=== PATIENT | female | born 1960 | race Caucasian/White ===

== ENCOUNTER → 2016-08-11 | Outpatient (CLI) | payer OTHER ==
[2016-08-11 08:06] LABS: Potassium 4.7 mmol/L (3.5-5.1); Total Bilirubin 0.5 mg/dL (0.2-1.3); Total Protein 6.6 g/dL (6.3-8.2)
[2016-08-11 09:46] LABS: Hemoglobin A1C 8.2 % (4.2-6.1)
== END ==
LOC: LABWHC1 06:50
PROVIDERS: ATTEND Internal Medicine Endocrinology, Diabetes & Metabolism
DX: E10.65 Type 1 diabetes mellitus with hyperglycemia (principal); E06.3 Autoimmune thyroiditis
CPT/HCPCS: 36415; 80053; 80061; 82043; 83036; 84439; 84443

== ENCOUNTER 2016-08-15 11:31 | Emergency (ER) | payer OTHER ==
[2016-08-15] MEDS ORDERED: ONDANSETRON 4 MG/2 ML VIAL IVP STA (12:28)
[2016-08-15] MEDS ORDERED: SODIUM CHLORIDE 0.9% 1,000 ML IV ONE (12:28)
--- NOTE | 2016-08-15 12:29 | ED ---
General Adult HPI - General Chief complaint: Recheck/Abnormal Lab/Rx Stated complaint: diabetes Time Seen by Provider: 08/15/16 11:56 Source: patient Mode of arrival: ambulatory Limitations: no limitations - History of Present Illness Initial comments: 55-year-old female patient presents to emergency department today for complaints of nausea, vomiting, and diarrhea 2 days. She does have a history significant for Type I diabetes and she states that her blood sugars have been fluctuating high and low for the last couple days as well. Patient states last time she vomited was this morning. Patient states that the last time she had diarrhea was throughout the night. Patient describes diarrhea as watery. She states that with this she is having some generalized abdominal pain that she describes as burning in nature. She denies any headache, dizziness, weakness, chest pain, or shortness of breath. Patient denies any hematemesis, dark, bloody, or black stools. - Related Data Home Medications Medication Instructions Recorded Confirmed Insulin Aspart [NovoLOG] See Protocol SQ QID 12/20/13 08/15/16 Levothyroxine Sodium [Synthroid] 137 mcg PO DAILY 12/20/13 08/15/16 Lisinopril [Zestril] 10 mg PO DAILY 12/20/13 08/15/16 Aspirin 81 mg PO DAILY 07/27/14 08/15/16 Atorvastatin Calcium [Lipitor] 40 mg PO HS 07/27/14 08/15/16 Furosemide [Lasix] 20 mg PO BID 07/27/14 08/15/16 Gabapentin 600 mg PO TID 07/27/14 08/15/16 Ibuprofen [Motrin] 800 mg PO Q8HR PRN 07/27/14 08/15/16 Latanoprost Ophth [Xalatan 0.005%] 1 drops RIGHT EYE HS 07/27/14 08/15/16 Cholecalciferol [Vitamin D3] 1,000 unit PO Q48H 08/15/16 08/15/16 Cholecalciferol [Vitamin D3] 2,000 unit PO Q48H 08/15/16 08/15/16 Escitalopram Oxalate [Lexapro] 10 mg PO DAILY 08/15/16 08/15/16 Insulin Degludec [Tresiba 26 unit SQ HS 08/15/16 08/15/16 Flextouch U-100] Previous Rx's Medication Instructions Recorded Ondansetron Odt [Zofran Odt] 4 mg PO Q8HR PRN #10 tab 08/15/16 Allergies Allergy/AdvReac Type Severity Reaction Status Date / Time cephalexin monohydrate Allergy Vomiting Verified 08/15/16 12:36 [From Keflex] prochlorperazine edisylate AdvReac SOB Verified 08/15/16 12:36 [From Compazine] prochlorperazine maleate AdvReac SOB Verified 08/15/16 12:36 [From Compazine] Review of Systems ROS Statement: Those systems with pertinent positive or pertinent negative responses have been documented in the HPI. ROS Other: All systems not noted in ROS Statement are negative. 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 History of Any Multi-Drug Resistant Organisms: None Reported Past Surgical History: Appendectomy, Section, Tonsillectomy Additional Past Surgical History / Comment(s): breast biopsy, cataract Past Anesthesia/Blood Transfusion Reactions: No Reported Reaction Past Psychological History: No Psychological Hx Reported Smoking Status: Current some day smoker Past Alcohol Use History: None Reported Past Drug Use History: None Reported - Past Family History Father Family Medical History: Diabetes Mellitus General Exam Limitations: no limitations General appearance: alert, in no apparent distress Head exam: Present: atraumatic, normocephalic Eye exam: Present: normal appearance (Right eye), PERRL (Right eye) Pupils: Present: unequal (Patient is blind in the left eye, and has chronic changes. Right eye is round, 2 mm, normal accommodation.) ENT exam: Present: normal exam, normal oropharynx, mucous membranes moist, TM's normal bilaterally. Absent: mucous membranes dry Neck exam: Present: normal inspection. Absent: tenderness, meningismus Respiratory exam: Present: normal lung sounds bilaterally. Absent: respiratory distress, wheezes, rales, rhonchi Cardiovascular Exam: Present: regular rate, normal rhythm, normal heart sounds. Absent: irregular rhythm, systolic murmur, diastolic murmur, rubs, gallop, clicks GI/Abdominal exam: Present: soft, tenderness (Mild diffuse), normal bowel sounds. Absent: distended, guarding, rebound, rigid, organomegaly, mass, hernia Extremities exam: Present: normal inspection, normal capillary refill Back exam: Present: normal inspection. Absent: CVA tenderness (R), CVA tenderness (L) Neurological exam: Present: alert, oriented X3, CN II-XII intact Psychiatric exam: Present: normal affect Skin exam: Present: warm, dry, intact Course Vital Signs 08/15/16 08/15/16 11:42 14:15 Temperature 97.3 F L 97.4 F L Pulse Rate 97 89 Respiratory 20 18 Rate Blood Pressure 172/72 164/68 O2 Sat by Pulse 100 99 Oximetry Medical Decision Making - Medical Decision Making 55-year-old female patient presented to emergency department for complaints of nausea, vomiting, and diarrhea. Patient states it started of couple days ago. Last episodes were this morning. Labs and x-ray are unremarkable for any acute abnormalities. Patient was also concerned about her blood sugar. Which appears to be stable around 200 while in the emergency department. Patient did receive 1 L of normal saline and also Zofran for nausea she is feeling better at this time. It is thought that patient has a gastroenteritis and she will be discharged home with instructions to increase fluids monitor her blood sugars closely and also will be given a prescription for Zofran for nausea. Patient is instructed to follow-up with her primary care doctor in 1-2 days. Patient instructed to return to emergency department for any new, worsening, or concerning symptoms. Patient verbalizes understanding and agrees with this plan. - Lab Data Result diagrams: 08/15/16 12:45 08/15/16 12:45 Lab Results 08/15/16 08/15/16 08/15/16 Range/Units 11:50 12:29 12:45 WBC (3.8-10.6) k/uL RBC (3.80-5.40) m/uL Hgb (11.4-16.0) gm/dL Hct (34.0-46.0) % MCV (80.0-100.0) fL MCH (25.0-35.0) pg MCHC (31.0-37.0) g/dL RDW (11.5-15.5) % Plt Count (150-450) k/uL Neutrophils % % Lymphocytes % % Monocytes % % Eosinophils % % Basophils % % Neutrophils # (1.3-7.7) k/uL Lymphocytes # (1.0-4.8) k/uL Monocytes # (0-1.0) k/uL Eosinophils # (0-0.7) k/uL Basophils # (0-0.2) k/uL Sodium 140 (137-145) mmol/L Potassium 4.1 (3.5-5.1) mmol/L Chloride 104 (98-107) mmol/L Carbon Dioxide 24 (22-30) mmol/L Anion Gap 12 mmol/L BUN 16 (7-17) mg/dL Creatinine 0.90 (0.52-1.04) mg/dL Est GFR (MDRD) Af Amer >60 (>60 ml/min/1.73 sqM) Est GFR (MDRD) Non-Af >60 (>60 ml/min/1.73 sqM) Glucose 237 H (74-99) mg/dL POC Glucose (mg/dL) 196 H 205 H (75-99) mg/dL POC Glu Resident Care Associate ID Efren Mcdonald, Jazmin Bronson Calcium 9.8 (8.4-10.2) mg/dL Total Bilirubin 0.8 (0.2-1.3) mg/dL AST 35 (14-36) U/L ALT 52 (9-52) U/L Alkaline Phosphatase 114 (38-126) U/L Total Protein 6.9 (6.3-8.2) g/dL Albumin 4.0 (3.5-5.0) g/dL Amylase 54 (30-110) U/L Lipase 40 (23-300) U/L Urine Color Urine Appearance (Clear) Urine pH (5.0-8.0) Ur Specific [place] (1.001-1.035) Urine Protein (Negative) Urine Glucose (UA) (Negative) Urine Ketones (Negative) Urine Blood (Negative) Urine Nitrate (Negative) Urine Bilirubin (Negative) Urine Urobilinogen (<2.0) mg/dL Ur Leukocyte Esterase (Negative) Acetone, Qual (Negative) 08/15/16 08/15/16 08/15/16 Range/Units 12:45 12:45 12:45 WBC 10.9 H (3.8-10.6) k/uL RBC 4.60 (3.80-5.40) m/uL Hgb 14.4 (11.4-16.0) gm/dL Hct 43.1 (34.0-46.0) % MCV 93.5 (80.0-100.0) fL MCH 31.3 (25.0-35.0) pg MCHC 33.5 (31.0-37.0) g/dL RDW 13.9 (11.5-15.5) % Plt Count 257 (150-450) k/uL Neutrophils % 83 % Lymphocytes % 11 % Monocytes % 4 % Eosinophils % 1 % Basophils % 1 % Neutrophils # 9.0 H (1.3-7.7) k/uL Lymphocytes # 1.1 (1.0-4.8) k/uL Monocytes # 0.4 (0-1.0) k/uL Eosinophils # 0.1 (0-0.7) k/uL Basophils # 0.1 (0-0.2) k/uL Sodium (137-145) mmol/L Potassium (3.5-5.1) mmol/L Chloride (98-107) mmol/L Carbon Dioxide (22-30) mmol/L Anion Gap mmol/L BUN (7-17) mg/dL Creatinine (0.52-1.04) mg/dL Est GFR (MDRD) Af Amer (>60 ml/min/1.73 sqM) Est GFR (MDRD) Non-Af (>60 ml/min/1.73 sqM) Glucose (74-99) mg/dL POC Glucose (mg/dL) (75-99) mg/dL POC Glu Resident Care Associate ID Calcium (8.4-10.2) mg/dL Total Bilirubin (0.2-1.3) mg/dL AST (14-36) U/L ALT (9-52) U/L Alkaline Phosphatase (38-126) U/L Total Protein (6.3-8.2) g/dL Albumin (3.5-5.0) g/dL Amylase (30-110) U/L Lipase (23-300) U/L Urine Color Colorless Urine Appearance Clear (Clear) Urine pH 5.0 (5.0-8.0) Ur Specific [place] 1.005 (1.001-1.035) Urine Protein Negative (Negative) Urine Glucose (UA) Negative (Negative) Urine Ketones Negative (Negative) Urine Blood Negative (Negative) Urine Nitrate Negative (Negative) Urine Bilirubin Negative (Negative) Urine Urobilinogen <2.0 (<2.0) mg/dL Ur Leukocyte Esterase Negative (Negative) Acetone, Qual Negative (Negative) - Radiology Data Radiology results: report reviewed KUB x-ray reveals that the osseous structures are intact. The bowel gas pattern is nonspecific. Splenic granuloma suggested. Lung bases clear. Arthropathy of the hip joints. Impression by Dr. Tam is a nonspecific abdomen. Disposition Clinical Impression: Gastroenteritis, Hyperglycemia Disposition: HOME SELF-CARE Condition: Stable Instructions: Gastroenteritis (ED), Diabetic Hyperglycemia (ED) Additional Instructions: Advance diet slowly. Increase fluids. Monitor blood sugars closely. Follow up with primary care provider in one to 2 days. Return for any new, worsening, or concerning symptoms. Prescriptions: Ondansetron Odt [Zofran Odt] 4 mg PO Q8HR PRN #10 tab PRN Reason: Nausea Referrals: Shannan Narayan MD [Primary Care Provider] - 1-2 days Time of Disposition: 14:09
[2016-08-15 12:32] LABS: Glucose,Whole Blood 205 mg/dL (75-99)
[2016-08-15 13:00] LABS: Basophils # (A) 0.1 k/uL (0-0.2); Basophils % (A) 1 %; CH 30.7; Eosinophils # (A) 0.1 k/uL (0-0.7); Eosinophils % (A) 1 %; HCT 43.1 % (34.0-46.0); HGB 14.4 gm/dL (11.4-16.0); Luc # (Auto) 0.19; Luc % (Auto) 2; Lymphocytes # (A) 1.1 k/uL (1.0-4.8); Lymphocytes % (A) 11 %; MCH 31.3 pg (25.0-35.0); MCHC 33.5 g/dL (31.0-37.0); MCV 93.5 fL (80.0-100.0); Mean Platelet Volume 8.2; Monocytes # (A) 0.4 k/uL (0-1.0); Monocytes % (A) 4 %; Neutrophils % (A) 83 %; RDW 13.9 % (11.5-15.5); WBC 10.9 k/uL (3.8-10.6); WBC (Perox) 10.68
[2016-08-15 13:03] LABS: Appearance,Urine Clear (Clear); Bilirubin,Urine Negative (Negative); Glucose,Urine (UA) Negative (Negative); Ketones,Urine Negative (Negative); Leukocyte Esterase,Urine Negative (Negative); Nitrite,Urine Negative (Negative); Protein,Urine Negative (Negative); Specific Gravity,Urine 1.005 (1.001-1.035); UA Billing (MACRO vs. MICRO) CHEM; Urobilinogen,Urine <2.0 mg/dL (<2.0)
[2016-08-15 13:03] LABS: Glucose,Whole Blood 196 mg/dL (75-99)
[2016-08-15 13:10] LABS: ALT 52 U/L (9-52); AST 35 U/L (14-36); Alkaline Phosphatase 114 U/L (38-126); Amylase 54 U/L (30-110); Anion Gap 12 mmol/L; Blood Urea Nitrogen 16 mg/dL (7-17); Calcium 9.8 mg/dL (8.4-10.2); Carbon Dioxide 24 mmol/L (22-30); Chloride 104 mmol/L (98-107); Glucose 237 mg/dL (74-99); Non-African American GFR(MDRD) >60 (>60 ml/min/1.73 sqM); Potassium 4.1 mmol/L (3.5-5.1); Sodium 140 mmol/L (137-145); Total Bilirubin 0.8 mg/dL (0.2-1.3); Total Protein 6.9 g/dL (6.3-8.2)
--- NOTE | 2016-08-15 13:12 | XR ---
EXAMINATION TYPE: XR KUB DATE OF EXAM: 08/15/2016 1:00 PM COMPARISON: NONE HISTORY: Left and right upper quadrant pain with vomiting TECHNIQUE: One view abdominal series FINDINGS: The osseous structures are intact. The bowel gas pattern is nonspecific. Splenic granuloma suggested . Lung bases clear. Arthropathy of the hip joints. IMPRESSION: 1. Nonspecific abdomen.
[2016-08-15] MEDS ORDERED: FAMOTIDINE 20 MG/2 ML VIAL IV STA (14:08)
[2016-08-15 14:15] VITALS: BP 164/68; PULSE 89; RESP 18; TEMP 97.4
== END 2016-08-15 14:23 | disposition home or self-care (01) ==
LOC: EC 11:31
DX: E11.65 Type 2 diabetes mellitus with hyperglycemia (principal); K52.9 Noninfective gastroenteritis and colitis, unspecified; R11.2 Nausea with vomiting, unspecified; E78.5 Hyperlipidemia, unspecified; E05.00 Thyrotoxicosis with diffuse goiter without thyrotoxic crisis or storm; I10 Essential (primary) hypertension; F17.200 Nicotine dependence, unspecified, uncomplicated; Z79.4 Long term (current) use of insulin; Z79.52 Long term (current) use of systemic steroids; Z79.82 Long term (current) use of aspirin; Z79.899 Other long term (current) drug therapy; Z88.1 Allergy status to other antibiotic agents; Z88.8 Allergy status to other drugs, medicaments and biological substances; Z90.49 Acquired absence of other specified parts of digestive tract
CPT/HCPCS: 36415; 80053; 82150; 82009; 83690; 85025; 81003; 74000; 99284; 96374; 96375; 96361 ×2; J2405

== ENCOUNTER → 2016-09-03 | Outpatient (CLI) | payer OTHER ==
--- NOTE | 2016-09-08 11:00 | MM ---
Reason for exam: screening (asymptomatic). Last mammogram was performed 1 year ago. History: Patient is postmenopausal. Benign right mammotome panel of the right breast, October 03, 2013. Physical Findings: A clinical breast exam by your physician is recommended on an annual basis and results should be correlated with mammographic findings. MG Screening Mammo w CAD Bilateral CC and MLO view(s) were taken. Prior study comparison: September 14, 2015, left breast MG work up mamm w CAD LT. September 03, 2015, bilateral MG screening mammo w CAD. There are scattered fibroglandular densities. Finding: There are typically stable benign calcifications. No significant changes in finding since September 14, 2015 and September 03, 2015. ASSESSMENT: Benign, BI-RAD 2 RECOMMENDATION: Routine screening mammogram of both breasts in 1 year.
== END | disposition home or self-care (01) ==
LOC: RADMAMWWP 12:31
PROVIDERS: ATTEND Internal Medicine
DX: Z12.31 Encounter for screening mammogram for malignant neoplasm of breast (principal)

== ENCOUNTER → 2016-10-10 | Outpatient (CLI) | payer OTHER ==
[2016-10-10 09:22] LABS: ALT 39 U/L (9-52); AST 38 U/L (14-36); Cholesterol 146 mg/dL (<200); HDL Cholesterol 48 mg/dL (40-60); Triglycerides 148 mg/dL (<150)
== END | disposition home or self-care (01) ==
LOC: LABWHC1 08:18
PROVIDERS: ATTEND Internal Medicine Cardiovascular Disease
DX: E78.2 Mixed hyperlipidemia (principal)
CPT/HCPCS: 36415; 80061; 84450; 84460

== ENCOUNTER → 2017-01-19 | Outpatient (CLI) | payer OTHER | END | disposition home or self-care (01) | LOC: LABWHC1 11:00 | PROVIDERS: ATTEND Internal Medicine Endocrinology, Diabetes & Metabolism | DX: E03.9 Hypothyroidism, unspecified (principal) | CPT/HCPCS: 36415; 84439; 84443 ==

== ENCOUNTER → 2017-04-22 | Outpatient (CLI) | payer OTHER | END | disposition home or self-care (01) | LOC: LABWHC1 07:49 | PROVIDERS: ATTEND Internal Medicine Endocrinology, Diabetes & Metabolism | DX: E78.5 Hyperlipidemia, unspecified (principal); E06.3 Autoimmune thyroiditis; E10.65 Type 1 diabetes mellitus with hyperglycemia | CPT/HCPCS: 36415; 80061; 83036; 84439; 84443 ==

== ENCOUNTER → 2017-06-26 | Outpatient (CLI) | payer OTHER ==
--- NOTE | 2017-06-26 11:11 | XR ---
EXAMINATION TYPE: XR shoulder complete LT DATE OF EXAM: 06/26/2017 COMPARISON: NONE HISTORY: Pain TECHNIQUE: Three views are submitted. FINDINGS: The osseous structures are intact. There is no acute fracture or dislocation. The AC joint is maint ained. IMPRESSION: 1. No acute process.
--- NOTE | 2017-06-26 11:20 | XR ---
EXAMINATION TYPE: XR cervical spine comp DATE OF EXAM: 06/26/2017 COMPARISON: NONE HISTORY: Pain TECHNIQUE: Four views are submitted. FINDINGS: The odontoid is intact. There are no compression deformities. The prevertebral soft tissue structur es are within normal limits. Faint calcification in the soft tissue of the right neck likely vascula r and related to the right carotid artery. IMPRESSION: 1. No acute process. Consider MRI follow-up.
== END | disposition home or self-care (01) ==
LOC: RADXRMAIN 10:30
PROVIDERS: ATTEND Internal Medicine
DX: M79.602 Pain in left arm (principal); M54.2 Cervicalgia
CPT/HCPCS: 72050

== ENCOUNTER → 2017-07-22 | Outpatient (CLI) | payer OTHER ==
[2017-07-22 09:22] LABS: T4, Free (Free Thyroxine) 1.31 ng/dL (0.78-2.19)
--- NOTE | 2017-07-22 10:52 | XR ---
EXAMINATION TYPE: XR cervical spine comp DATE OF EXAM: 07/22/2017 COMPARISON: NONE HISTORY: Acute pain TECHNIQUE: Four views are submitted. FINDINGS: The odontoid is intact. There are no compression deformities. The prevertebral soft tissue structur es are within normal limits. Calcification the soft tissue the neck likely related to carotid artery . Mild hypertrophic changes involving C5-6 and C6-C7 anteriorly. Minimal anterolisthesis C5 on C6. IMPRESSION: 1. No acute process. If symptoms persist consider MRI.
[2017-07-22 20:04] LABS: Hemoglobin A1C 9.6 % (4.0-6.0)
== END | disposition home or self-care (01) ==
LOC: LABWHC1 07:12
PROVIDERS: ATTEND Internal Medicine Endocrinology, Diabetes & Metabolism
DX: M25.512 Pain in left shoulder (principal); E03.9 Hypothyroidism, unspecified; E11.9 Type 2 diabetes mellitus without complications
CPT/HCPCS: 36415; 72050; 83036; 84439; 84443

== ENCOUNTER → 2017-09-29 | Outpatient (CLI) | payer OTHER ==
--- NOTE | 2017-09-29 11:18 | XR ---
EXAMINATION TYPE: XR foot limited RT DATE OF EXAM: 09/29/2017 COMPARISON: NONE HISTORY: Pain TECHNIQUE: Three views are submitted. FINDINGS: The osseous structures are intact and severe arthropathy first MTP joint with hypertrophic changes. V ascular calcifications are seen. Tiny calcaneal spur. IMPRESSION: 1. No acute fracture or dislocation. If symptoms persist, follow-up exam in 7 to 10 days could be ob tained.
== END | disposition home or self-care (01) ==
LOC: RADXRMAIN 10:38
DX: M79.671 Pain in right foot (principal)

== ENCOUNTER → 2017-10-28 | Outpatient (CLI) | payer OTHER ==
[2017-10-28 08:40] LABS: Anion Gap 13 mmol/L; Blood Urea Nitrogen 18 mg/dL (7-17); Calcium 9.3 mg/dL (8.4-10.2); Carbon Dioxide 23 mmol/L (22-30); Chloride 105 mmol/L (98-107); Cholesterol 150 mg/dL (<200); Glucose 143 mg/dL (74-99); HDL Cholesterol 44 mg/dL (40-60); LDL Cholesterol,Calculated 87 mg/dL (0-99); Potassium 4.6 mmol/L (3.5-5.1); Sodium 141 mmol/L (137-145); Triglycerides 93 mg/dL (<150)
[2017-10-28 08:53] LABS: T4, Free (Free Thyroxine) 1.47 ng/dL (0.78-2.19)
== END | disposition home or self-care (01) ==
LOC: LABWHC1 07:40
PROVIDERS: ATTEND Internal Medicine Endocrinology, Diabetes & Metabolism
DX: E10.65 Type 1 diabetes mellitus with hyperglycemia (principal); E10.40 Type 1 diabetes mellitus with diabetic neuropathy, unspecified; E06.3 Autoimmune thyroiditis; E78.5 Hyperlipidemia, unspecified; E55.9 Vitamin D deficiency, unspecified
CPT/HCPCS: 36415; 80048; 80061; 82306; 83036; 84439; 84443

== ENCOUNTER → 2017-10-28 | Outpatient (CLI) | payer OTHER ==
--- NOTE | 2017-10-28 15:16 | MM ---
Reason for exam: screening (asymptomatic). Last mammogram was performed 1 year and 2 months ago. History: Patient is postmenopausal. Benign right mammotome panel of the right breast, October 03, 2013. Physical Findings: A clinical breast exam by your physician is recommended on an annual basis and results should be correlated with mammographic findings. MG Screening Mammo w CAD Bilateral CC and MLO view(s) were taken. Prior study comparison: September 03, 2016, bilateral MG screening mammo w CAD. September 14, 2015, left breast MG work up mamm w CAD LT. The breast tissue is heterogeneously dense. This may lower the sensitivity of mammography. Stable benign calcifications. There is no discrete abnormality. No significant changes when compared with prior studies. ASSESSMENT: Benign, BI-RAD 2 RECOMMENDATION: Routine screening mammogram of both breasts in 1 year.
== END | disposition home or self-care (01) ==
LOC: RADMAMWWP 08:09
PROVIDERS: ATTEND Internal Medicine
DX: Z12.31 Encounter for screening mammogram for malignant neoplasm of breast (principal)
CPT/HCPCS: 77067

== ENCOUNTER → 2018-03-22 | Outpatient (CLI) | payer OTHER ==
[2018-03-22 11:11] LABS: ALT 63 U/L (9-52); AST 63 U/L (14-36); Albumin 3.9 g/dL (3.5-5.0); Alkaline Phosphatase 120 U/L (38-126); Anion Gap 11 mmol/L; Blood Urea Nitrogen 13 mg/dL (7-17); Calcium 9.6 mg/dL (8.4-10.2); Carbon Dioxide 25 mmol/L (22-30); Chloride 103 mmol/L (98-107); Cholesterol 186 mg/dL (<200); Glucose 135 mg/dL (74-99); HDL Cholesterol 49 mg/dL (40-60); LDL Cholesterol,Calculated 113 mg/dL (0-99); Potassium 4.7 mmol/L (3.5-5.1); Sodium 139 mmol/L (137-145); Total Bilirubin 0.7 mg/dL (0.2-1.3); Total Protein 7.1 g/dL (6.3-8.2); Triglycerides 120 mg/dL (<150)
[2018-03-22 11:16] LABS: T4, Free (Free Thyroxine) 1.67 ng/dL (0.78-2.19)
[2018-03-22 20:02] LABS: Hemoglobin A1C 8.8 % (4.0-6.0)
== END | disposition home or self-care (01) ==
LOC: LABWHC1 09:38
PROVIDERS: ATTEND Internal Medicine Endocrinology, Diabetes & Metabolism
DX: E78.2 Mixed hyperlipidemia (principal); E11.649 Type 2 diabetes mellitus with hypoglycemia without coma; E06.3 Autoimmune thyroiditis; E11.620 Type 2 diabetes mellitus with diabetic dermatitis; I10 Essential (primary) hypertension; E11.40 Type 2 diabetes mellitus with diabetic neuropathy, unspecified; E11.65 Type 2 diabetes mellitus with hyperglycemia
CPT/HCPCS: 36415; 80053; 80061; 82043; 82570; 83036; 84439; 84443

== ENCOUNTER → 2018-12-16 | Outpatient (CLI) | payer OTHER ==
--- NOTE | 2018-12-17 09:57 | MM ---
Reason for exam: screening (asymptomatic). Last mammogram was performed 1 year and 2 months ago. History: Patient is postmenopausal. Benign right mammotome panel of the right breast, October 03, 2013. Physical Findings: A clinical breast exam by your physician is recommended on an annual basis and results should be correlated with mammographic findings. MG Screening Mammo w CAD Bilateral CC and MLO view(s) were taken. Prior study comparison: October 28, 2017, bilateral MG screening mammo w CAD. September 03, 2016, bilateral MG screening mammo w CAD. There are scattered fibroglandular densities. There are benign appearing round linear calcifications bilaterally. Previous mammotome biopsy in the right breast. There is no discrete abnormality. ASSESSMENT: Benign, BI-RAD 2 RECOMMENDATION: Routine screening mammogram of both breasts in 1 year.
== END | disposition home or self-care (01) ==
LOC: RADMAMWWP 09:38
PROVIDERS: ATTEND Family Medicine
DX: Z12.31 Encounter for screening mammogram for malignant neoplasm of breast (principal)
CPT/HCPCS: 77067

== ENCOUNTER → 2019-01-14 | Outpatient (CLI) | payer OTHER ==
[2019-01-14 17:14] LABS: LDL Cholesterol,Calculated 61.2 mg/dL (0.0-131.0); VLDL Calculation 24.8 mg/dL (5.00-40.00)
[2019-01-14 21:43] LABS: Hemoglobin A1C 9.8 % (4.0-6.0)
== END | disposition home or self-care (01) ==
LOC: LABWHC1 08:28
PROVIDERS: ATTEND Internal Medicine
DX: E11.65 Type 2 diabetes mellitus with hyperglycemia (principal)
CPT/HCPCS: 36415; 80061; 83036

== ENCOUNTER → 2019-05-02 | Outpatient (CLI) | payer OTHER ==
[2019-05-02 13:17] LABS: African American GFR (CKD) >90 (>60 ml/min/1.73 sqM); Blood Urea Nitrogen 16 mg/dL (7-17); C Reactive Protein <5.0 mg/L (<10.0); Non-African American GFR(CKD) 79 (>60 ml/min/1.73 sqM)
[2019-05-02 16:34] LABS: DNA Double-Stranded NEGATIVE (NEGATIVE)
[2019-05-02 20:16] LABS: Rheumatoid Factor, Qnt 5 IU/mL (0-15)
--- NOTE | 2019-05-02 20:36 | MR ---
EXAMINATION TYPE: MR brain wo/w con DATE OF EXAM: 05/02/2019 COMPARISON: 03/02/2015 HISTORY: Tumor, MS CONTRAST: Performed utilizing 9 mL intravenous Gadavist gadolinium contrast. TECHNIQUE: Multiplanar, multisequence imaging of the brain is performed on a 3.0 Cynthia magnet. Demye linating disease protocol with additional Sagittal Flair sequence is performed. Study is performed wi thin 24 hours of arrival to the hospital. FINDINGS: T2 White Matter Lesions Present : Yes Approximate Number of Lesions: Periventricular Locations Identified : Periventricular, subcortical Size of Largest Lesion(s): 1. 0.7 x 0.7 x 1.0 cm cm. Location: Right periventricular Sequence 701 Image 22 (axial) and Sequence 801 Image 25 (sagittal). Enhancing Lesion(s) Present: No Change from Prior: Stable Diffusion-weighted imaging is performed. No abnormal hyperintensity is present to suggest an acute i ntracranial infarct or acute ischemic change. Ventricles and sulci are appropriate for the patient age. There are no abnormal extra-axial fluid collections. The ventricular system and cisternal spaces are normal in size and appearance. The brain volume is age appropriate. The craniocervical junction tom ears within normal limits. The dural venous sinuses appear patent. No abnormal enhancement is present on post contrast images. . The visualized sinuses are clear. Visu alized orbits are unremarkable. IMPRESSION: 1. Stable periventricular white matter changes can be compatible with multiple sclerosis in the prop er clinical setting.
[2019-05-03 11:50] LABS: ANA Pattern Homogeneous
== END | disposition home or self-care (01) ==
LOC: RADMRIMAIN 10:53
PROVIDERS: ATTEND Psychiatry & Neurology Neurology
DX: D49.6 Neoplasm of unspecified behavior of brain (principal); G35 Multiple sclerosis; M54.12 Radiculopathy, cervical region; Z13.89 Encounter for screening for other disorder
CPT/HCPCS: 85652; 82565; 84520; 86140; 86431; 86038; 86039; 86225; 70553; 36415; A9585

== ENCOUNTER 2019-09-15 15:26 | Emergency (ER) | payer OTHER ==
[2019-09-15 15:32] VITALS: BP 136/60; PULSE 69; RESP 18; TEMP 97.4
[2019-09-15] MEDS ORDERED: DIPH,PERTUS(ACELL)TETVAC-LF 0.5 ML VIAL IM ONE (15:50)
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
== END 2019-09-15 16:20 | disposition home or self-care (01) ==
LOC: EC 15:26
DX: T24.202A Burn of second degree of unspecified site of left lower limb, except ankle and foot, initial encounter (principal); T24.201A Burn of second degree of unspecified site of right lower limb, except ankle and foot, initial encounter; T31.0 Burns involving less than 10% of body surface; E78.5 Hyperlipidemia, unspecified; I10 Essential (primary) hypertension; E11.40 Type 2 diabetes mellitus with diabetic neuropathy, unspecified; E07.9 Disorder of thyroid, unspecified; F17.200 Nicotine dependence, unspecified, uncomplicated; Z79.4 Long term (current) use of insulin; Z79.890 Hormone replacement therapy; Z79.82 Long term (current) use of aspirin; Z79.899 Other long term (current) drug therapy; Z88.1 Allergy status to other antibiotic agents; Z88.8 Allergy status to other drugs, medicaments and biological substances; Z23 Encounter for immunization; X10.0XXA Contact with hot drinks, initial encounter
CPT/HCPCS: 90471; 90715; 99283

== ENCOUNTER 2019-09-19 12:06 | Emergency (ER) | payer OTHER ==
[2019-09-19] MEDS ORDERED: ACET/COD 300 MG/30 MG STARTER PACK 6 TAB BTL PO STA (12:47)
[2019-09-19] MEDS ORDERED: NEOMYCIN-BACITRACIN-POLY OINT 14 GM TUBE TOPICAL STA (12:47)
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
[2019-09-19 13:38] VITALS: BP 128/78; PULSE 100; RESP 16; TEMP 98.2
== END 2019-09-19 13:37 | disposition home or self-care (01) ==
LOC: EC 12:06
DX: T24.212D Burn of second degree of left thigh, subsequent encounter (principal); T24.211D Burn of second degree of right thigh, subsequent encounter; E78.5 Hyperlipidemia, unspecified; I10 Essential (primary) hypertension; E07.9 Disorder of thyroid, unspecified; E11.39 Type 2 diabetes mellitus with other diabetic ophthalmic complication; H42 Glaucoma in diseases classified elsewhere; E11.40 Type 2 diabetes mellitus with diabetic neuropathy, unspecified; F17.200 Nicotine dependence, unspecified, uncomplicated; Z79.82 Long term (current) use of aspirin; Z79.4 Long term (current) use of insulin; Z79.899 Other long term (current) drug therapy; Z88.1 Allergy status to other antibiotic agents; Z88.8 Allergy status to other drugs, medicaments and biological substances; X10.0XXD Contact with hot drinks, subsequent encounter
CPT/HCPCS: 99283

== ENCOUNTER 2019-10-11 11:38 | Inpatient (IN) | payer OTHER ==
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
--- NOTE | 2019-10-11 12:28 | CT ---
EXAMINATION TYPE: CT brain wo con for TPA DATE OF EXAM: 10/11/2019 COMPARISON: None HISTORY: Neuro deficit, acute, stroke suspected, left side weakness CT DLP: 1099.[address] of the brain was performed. The ventricles, basal cisterns and sulci overlying the cerebral convexities demonstrate mild enlargem ent. There is no evidence for intracranial hemorrhage or sulcal effacement. There is decreased attenuation about the periventricular white matter and deep white matter of both c erebral hemispheres, compatible with chronic small vessel ischemia. Differential diagnosis does inclu de demyelination. No mass effects are seen.No midline shift. Osseous calvarium is intact. If symptoms persist consider MRI. IMPRESSION: 1. Age related atrophic and chronic small vessel ischemic change without acute intracranial process s een at this time.
[2019-10-11 12:39] LABS: Glucose,Whole Blood 190 mg/dL (75-99)
[2019-10-11 12:44] LABS: Basophils # (A) 0.1 k/uL (0-0.2); Basophils % (A) 2 %; Eosinophils # (A) 0.2 k/uL (0-0.7); Eosinophils % (A) 2 %; HCT 45.2 % (34.0-46.0); HGB 14.4 gm/dL (11.4-16.0); Lymphocytes # (A) 1.4 k/uL (1.0-4.8); Lymphocytes % (A) 19 %; MCH 32.3 pg (25.0-35.0); MCHC 31.9 g/dL (31.0-37.0); MCV 101.3 fL (80.0-100.0); Macrocytosis Slight; Mean Platelet Volume 8.3; Monocytes # (A) 0.4 k/uL (0-1.0); Monocytes % (A) 6 %; Neutrophils # (A) 5.5 k/uL (1.3-7.7); Neutrophils % (A) 70 %; Platelet Count 337 k/uL (150-450); RBC 4.47 m/uL (3.80-5.40); RDW 14.2 % (11.5-15.5); WBC 7.8 k/uL (3.8-10.6)
[2019-10-11 12:56] LABS: ALT 27 U/L (4-34); AST 35 U/L (14-36); African American GFR (CKD) >90 (>60 ml/min/1.73 sqM); Albumin 4.3 g/dL (3.5-5.0); Alkaline Phosphatase 108 U/L (38-126); Anion Gap 12 mmol/L; Blood Urea Nitrogen 17 mg/dL (7-17); Carbon Dioxide 23 mmol/L (22-30); Chloride 101 mmol/L (98-107); Glucose 149 mg/dL (74-99); Non-African American GFR(CKD) >90 (>60 ml/min/1.73 sqM); Potassium 4.6 mmol/L (3.5-5.1); Sodium 136 mmol/L (137-145); Total Bilirubin 0.5 mg/dL (0.2-1.3); Total Protein 7.4 g/dL (6.3-8.2)
[2019-10-11 12:57] LABS: INR 0.9 (<1.2); Partial Thromboplastin Time 24.8 sec (22.0-30.0); Prothrombin Time 9.4 sec (9.0-12.0)
--- NOTE | 2019-10-11 13:55 | CT ---
EXAMINATION TYPE: CT angio head neck DATE OF EXAM: 10/11/2019 COMPARISON: None HISTORY: left arm weakness CT DLP: 452.1 mGycm CONTRAST: Performed with IV Contrast, patient injected with 65 mL of Isovue 370. Combination Contrast CTA cervical carotids and [place] CTA cervical carotids with 3-D recons truction Contrast CTA of the cervical carotids was performed 3-D reconstruction imaging obtained at a separate workstation. Right carotid system: Mild plaque is seen of the right common carotid artery. There is mild plaque a lso noted at the carotid bulb and proximal ICA. Less than 50% stenosis identified. ECA is patent. Right vertebral artery appears unremarkable. Left carotid system: Mild plaque is seen of the left common carotid artery. There is mild plaque als o noted at the carotid bulb and proximal ICA. Less than 50% stenosis identified. ECA is patent. Lef t vertebral artery appears unremarkable. IMPRESSION: 1. No evidence for hemodynamically significant stenosis at this time. CTA [place] with 3-D reconstruction Contrast CTA of the [place] was performed 3-D reconstruction imaging obtained at a separate workstation. Vertebrobasilar system as well as intracranial portions of the internal carotid arteries and their ma shirley tributaries are patent. I do not see evidence for sizable aneurysm or vascular malformation. Pl ease note MRI provides greater sensitivity and specificity. Visualized brain appears grossly unremar kable. IMPRESSION: 1. No significant abnormality.
--- NOTE | 2019-10-11 13:57 | XR ---
EXAMINATION TYPE: XR chest 2V DATE OF EXAM: 10/11/2019 COMPARISON: 07/26/2015 HISTORY: Shortness of breath TECHNIQUE: Frontal and lateral views of the chest are obtained. FINDINGS: Scattered senescent parenchymal changes noted. Hyperinflation compatible with COPD. Mild increased density right medial lung base may reflect developing infiltrate. Heart size is stable. Mediastinal structures are stable and grossly unremarkable. No evidence for hilar prominence. Degenerative changes dorsal spine. IMPRESSION: 1. Mild increased density right medial lung base may reflect developing infiltrate.
[2019-10-11] MEDS ORDERED: CLOPIDOGREL 75 MG TAB PO STA (15:36)
[2019-10-11 16:42] LABS: Glucose,Whole Blood 199 mg/dL (75-99)
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
[2019-10-11] MEDS ORDERED: LACTULOSE 20 GM/30 ML CUP PO PRN (18:28)
[2019-10-11] MEDS ORDERED: HYDROcodone/APAP 5-325MG 1 EACH TAB PO PRN (18:28)
[2019-10-11] MEDS ORDERED: BISACODYL 10 MG SUPP RECTAL PRN (18:28)
[2019-10-11] MEDS ORDERED: POLYETHYLENE GLYCOL 3350 17 GM POWD.PACK PO PRN (18:28)
[2019-10-11] MEDS ORDERED: MELATONIN 3 MG TABLET PO PRN (18:30)
[2019-10-11] MEDS ORDERED: MAGNESIUM HYDROXIDE 2,400 MG/10 ML CUP PO PRN (18:30)
[2019-10-11] MEDS ORDERED: NALOXONE 0.4 MG/ML 1 ML VIAL IV PRN (18:30)
[2019-10-11] MEDS ORDERED: ONDANSETRON 4 MG/2 ML VIAL IVP PRN (18:30)
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
[2019-10-11] MEDS: ASPIRIN 81 MG PO SCH (18:51)
[2019-10-11] MEDS: ENOXAPARIN 40 MG/0.4 ML SYRINGE SQ SCH (18:52)
[2019-10-11] MEDS: NICOTINE 21MG/24HR PATCH TRANSDERM SCH (18:52)
[2019-10-11] MEDS: ACETAMINOPHEN TAB 325 MG TAB PO SCH (18:52)
[2019-10-11] MEDS: GABAPENTIN 300 MG CAP PO SCH ×2 (18:52→21:20)
[2019-10-11 20:14] LABS: Glucose,Whole Blood 420 mg/dL (75-99)
[2019-10-11 20:18] LABS: Glucose,Whole Blood 412 mg/dL (75-99)
[2019-10-11] MEDS: INSULIN ASPART (NovoLOG) 100 UNIT/ML VIAL SQ SCH (21:19)
[2019-10-11] MEDS: INSULIN DETEMIR (LEVEMIR) 100 UNIT/ML SYR SQ SCH (21:19)
[2019-10-11 21:20] LABS: Glucose,Whole Blood 427 mg/dL (75-99)
[2019-10-11] MEDS: ATORVASTATIN 40 MG TAB PO SCH (21:20)
[2019-10-11] MEDS: FUROSEMIDE 20 MG TAB PO SCH (21:20)
[2019-10-12] MEDS: LATANOPROST 0.005% OPHTH DROPS 2.5 ML BTL BOTH EYES SCH ×2 (01:40→22:23)
[2019-10-12 04:31] LABS: Hemoglobin A1C 10.3 % (4.0-6.0)
[2019-10-12] MEDS: LEVOTHYROXINE 100 MCG TAB PO SCH (06:16)
[2019-10-12] MEDS: ACETAMINOPHEN TAB 325 MG TAB PO SCH ×3 (06:16→20:15)
[2019-10-12 06:25] LABS: Glucose,Whole Blood 75 mg/dL (75-99)
[2019-10-12] MEDS: INSULIN ASPART (NovoLOG) 100 UNIT/ML VIAL SQ SCH ×4 (06:31→20:15)
[2019-10-12 06:49] LABS: Cholesterol 127 mg/dL (<200); HDL Cholesterol 38 mg/dL (40-60); LDL Cholesterol,Calculated 67 mg/dL (0-99); Triglycerides 112 mg/dL (<150)
[2019-10-12] MEDS: GABAPENTIN 300 MG CAP PO SCH ×3 (08:16→22:23)
[2019-10-12] MEDS: MAGNESIUM OXIDE 400 MG TAB PO SCH (08:16)
[2019-10-12] MEDS: CLOPIDOGREL 75 MG TAB PO SCH (08:16)
[2019-10-12] MEDS: ENOXAPARIN 40 MG/0.4 ML SYRINGE SQ SCH (08:16)
[2019-10-12] MEDS: NICOTINE 21MG/24HR PATCH TRANSDERM SCH ×2 (08:17→08:18)
[2019-10-12] MEDS: ASPIRIN 81 MG PO SCH (08:17)
[2019-10-12] MEDS: LISINOPRIL 20 MG TAB PO SCH (08:17)
[2019-10-12] MEDS: FUROSEMIDE 20 MG TAB PO SCH ×2 (08:17→17:22)
[2019-10-12 11:11] LABS: Glucose,Whole Blood 368 mg/dL (75-99)
--- NOTE | 2019-10-12 11:11 | MR ---
"EXAMINATION TYPE: MR brain wo con DATE OF EXAM: 10/12/2019 COMPARISON: MRI brain March 02, 2015. Recent CT from yesterday. HISTORY: Lt arm weakness, acute CVA TECHNIQUE: Multiplanar, multisequence imaging of the brain and brainstem is performed without IV cont rast. FINDINGS: Diffusion weighted images demonstrate 5 mm focus of increased signal on diffusion-weighted images wit h diminished signal ADC mapping right parietal periventricular level of stone radiata axial image 16 0 series 305 that shows T1 hypointensity and T2 hyperintensity. Superior to this additional subcortic al foci in the right parietal lobe image 192 series 305 for reference and probable subtle 2 to 3 mm s ubcortical focus right frontal lobe corresponding to FLAIR hyperintensity axial image 25. Findings co nsistent with multifocal evolving acute right lacunar infarcts. There is background mild to moderate diffuse ventricular and sulcal prominence. Background mild T2 hy perintensity scattered throughout the deep and periventricular white matter. Finding presumed on the basis of product of chronic small vessel ischemic change. Midline structures demonstrate normal morphology. The craniocervical junction appears within normal limits. Normal vascular flow voids are present. The visualized sinuses are clear and the globes are i ntact. IMPRESSION: 1. Multifocal evolving right-sided acute lacunar infarcts involving predominantly right parietal lobe as detailed above. 2. Background mild to moderate diffuse cerebral atrophy and mild chronic small vessel ischemic change redemonstrated. A Yellow level critical message alert has been initiated for Estevan Nava MD via the [employer] 0 | Critical Results System on 10/12/2019 11:09 AM. This message alert has been sent to Estevan Nava MD via the preferences provided by the clinician for the receipt of Radiology Critical Findings. [facility] ID [id number]."
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
[2019-10-12 13:41] VITALS: BMI 34.3
[2019-10-12 16:21] LABS: Glucose,Whole Blood 321 mg/dL (75-99)
--- NOTE | 2019-10-12 18:30 | P.PN ---
Subjective Progress Note Date: 10/12/19 Patient states she is feeling better. No new concerns. Objective - Vital Signs Vital signs: Vital Signs Temp 98.7 F 10/12/19 08:00 Pulse 65 10/12/19 12:00 Resp 16 10/12/19 12:00 BP 115/69 10/12/19 12:00 Pulse Ox 96 10/12/19 12:00 Intake & Output 10/11/19 10/12/19 10/12/19 18:59 06:59 18:59 Intake Total 120 360 Output Total 300 Balance 120 -300 360 Weight 80.739 kg 82.5 kg 82.5 kg Intake: Oral 120 360 Output: Urine 300 Other: Voiding Method Bedpan Bedside Commode # Voids 0 1 3 - Exam Patient's mental status, speech and language functions are normal. Cranial nerves are normal. Muscle strength shows left pronator drift, although better than yesterday. Less ataxic, lefty-ballistic. The strength is normal on the right side. On the left, deltoid is 4, normal biceps, triceps, and infection control practitioner. Hip flexion is 4+ to 5-, distally normal. - Labs CBC & Chem 7: 10/11/19 12:07 10/11/19 12:07 Labs: Abnormal Lab Results - Last 24 Hours (Table) 10/11/19 10/11/19 10/11/19 Range/Units 12:07 20:12 20:17 POC Glucose (mg/dL) 420 H 412 H (75-99) mg/dL Hemoglobin A1c 10.3 H (4.0-6.0) % HDL Cholesterol (40-60) mg/dL 10/11/19 10/12/19 10/12/19 Range/Units 21:16 05:34 11:09 POC Glucose (mg/dL) 427 H 368 H (75-99) mg/dL Hemoglobin A1c (4.0-6.0) % HDL Cholesterol 38 L (40-60) mg/dL 10/12/19 Range/Units 16:19 POC Glucose (mg/dL) 321 H (75-99) mg/dL Hemoglobin A1c (4.0-6.0) % HDL Cholesterol (40-60) mg/dL Assessment and Plan Assessment: * Acute ischemic stroke right parietal lobe. * Almost lifelong history of type I Diabetes, not well controlled * Tobacco user * Dyslipidemia. Plan: * Patient appears better as compared to yesterday. Left leg and left arm appears stronger. * Continue dual antiplatelet medication with aspirin 81 mg and Plavix 75 mg daily indefinitely. * 2-D echo with bubble study still pending, to rule out PFO and other embolic source. * Telemetry monitoring showing sinus rhythm. * Fasting a.m. lipid panel with total cholesterol 127, LDL 67, HDL 38 and triglycerides 112. Continue statins. * Hemoglobin A1c 10.3. Optimize control of diabetes to target A1c <7.0. * May start controlling blood pressure as necessary.
[2019-10-12 20:04] LABS: Glucose,Whole Blood 346 mg/dL (75-99)
[2019-10-12] MEDS: ATORVASTATIN 40 MG TAB PO SCH (20:15)
[2019-10-12] MEDS: INSULIN DETEMIR (LEVEMIR) 100 UNIT/ML SYR SQ SCH (20:15)
--- NOTE | 2019-10-12 22:40 | P.PN ---
Progress Note - Text Progress Note Date: 10/12/19 Chief Complaint: Left-sided weakness History of presenting complaint: This is a pleasant 58-year-old patient of Dr. Escobedo. Chronic stable medical conditions include diabetes mellitus, hypertension, hyperlipidemia, osteoarthritis, hypothyroid, blinders left eye, peripheral neuropathy. Patient active smoker. Patient's had left arm weakness off and on for about 3 months and she's had a workup done by Dr. Hillman the local neurologist. Nothing specific cause was found. Patient now presents with left arm and leg becoming weaker since last night. Patient also felt dizzy this morning nearly passing out. Also felt weak. No change in her vision. No change in speech or voice. Initial computed tomography scan was unremarkable. Patient about 2 weeks ago also spilled hot coffee and eyes and that is getting topical treatment. Neurology was consulted. Admitted with acute ipdjeq-xraz-ixtyj weakness persist. On aspirin and Plavix. Tolerating diet. Did well with physical therapist Review of systems: Was done for constitutional, cardiovascular, GI, pulmonary. Neurological, relevant finding as above Active Medications Acetaminophen (Tylenol Tab) 325 mg PO Q8H [facility] Last Admin: 10/12/19 20:15 Dose: 325 mg Documented by: Hydrocodone Bitart/Acetaminophen ([place] 5-325) 1 each PO Q6H PRN PRN Reason: Pain Aspirin (Aspirin) 81 mg PO DAILY [facility] Last Admin: 10/12/19 08:17 Dose: 81 mg Documented by: Atorvastatin Calcium (Lipitor) 40 mg PO HS [facility] Last Admin: 10/12/19 20:15 Dose: 40 mg Documented by: Bisacodyl (Dulcolax) 10 mg RECTAL DAILY PRN PRN Reason: Constipation Clopidogrel Bisulfate (Plavix) 75 mg PO DAILY [facility] Last Admin: 10/12/19 08:16 Dose: 75 mg Documented by: Enoxaparin Sodium (Lovenox) 40 mg SQ DAILY [facility] Last Admin: 10/12/19 08:16 Dose: 40 mg Documented by: Furosemide (Lasix) 20 mg PO BID@0900,1600 [facility] Last Admin: 10/12/19 17:22 Dose: 20 mg Documented by: Gabapentin (Neurontin) 600 mg PO TID [facility] Last Admin: 10/12/19 22:23 Dose: 600 mg Documented by: Insulin Aspart (Novolog) 0 unit SQ ACHS [facility]; Protocol Last Admin: 10/12/19 20:15 Dose: 6 unit Documented by: Insulin Detemir (Levemir) 26 unit SQ HS [facility] Last Admin: 10/12/19 20:15 Dose: 26 unit Documented by: Lactulose (Cephulac) 20 gm PO DAILY PRN PRN Reason: Constipation Latanoprost (Xalatan 0.005%) [address] [facility] Last Admin: 10/12/19 22:23 Dose: 1 drops Documented by: Levothyroxine Sodium (Synthroid) 100 mcg PO 0630 [facility] Last Admin: 10/12/19 06:16 Dose: 100 mcg Documented by: Lisinopril (Zestril) 20 mg PO DAILY [facility] Last Admin: 10/12/19 08:17 Dose: 20 mg Documented by: Magnesium Hydroxide (Milk Of Magnesia) 2,400 mg PO DAILY PRN PRN Reason: Constipation Magnesium Oxide (Mag-Ox) 400 mg PO DAILY [facility] Last Admin: 10/12/19 08:16 Dose: 400 mg Documented by: Melatonin (Melatonin) 3 mg PO HS PRN PRN Reason: Insomnia Naloxone HCl (Narcan) 0.2 mg IV Q2M PRN PRN Reason: Opioid Reversal Nicotine (Habitrol 21mg/24hr Patch) 1 patch TRANSDERM DAILY [facility] Last Admin: 10/12/19 08:18 Dose: Not Given Documented by: Ondansetron HCl (Zofran) 4 mg IVP Q8HR PRN PRN Reason: Nausea And Vomiting Polyethylene Glycol (Miralax) 17 gm PO DAILY PRN PRN Reason: Constipation Silver Sulfadiazine (Silvadene Cream) 1 applic TOPICAL DAILY [facility] Last Admin: 10/12/19 08:17 Dose: 1 applic Documented by: Physical examination: VITAL SIGNS: 98.7, 81, 16, 1509, 96% on room air GENERAL: Laying in bed, EYES: Pupils equal. Conjunctiva normal. HEENT: External appearance of nose and ears normal, oral cavity grossly normal. NECK: JVD not raised; masses not palpable. HEART: First and second heart sounds are normal; no edema. LUNGS: Respiratory rate increased, decreased breath sounds . ABDOMEN: Soft, nontender, liver spleen not palpable, no masses palpable DERMATOLOGICAL: Conti to both the thighs. PSYCH: Alert and oriented x3; mood and affect normal. NEUROLOGICAL: [Cranial nerves grossly intact; no facial asymmetry, power in the left arm 3/5, power in the left leg 3/5, with hyperreflexia and and upper extremity INVESTIGATIONS, reviewed in the clinical context: Accu-Cheks every 5, 368, 321 LDL 67 Brain MRA-multifocal evolving right-sided acute lacunar infarcts involving predominantly right parietal lobe the setting of underlying cerebral atrophy Previous testing White count 7.8 hemoglobin 14.4 platelets 337 potassium 4.6 creatinine 0.69 Accu-Cheks 190, 199 COVID-19 PCR-not detected EKG tracing personally reviewed by me-normal sinus rhythm Chest x-ray film personally reviewed by me-questionable right-sided infiltrate CT angiography of the brain-negative Computed tomography scan of the brain without contrast-AIDS related chronic changes Assessment: -Acute stroke -multifocal right-sided lacunar infarcts involving predominantly the right parietal lobe-slow to respond -Diabetes mellitus type 2, uncontrolled with hyperglycemia -Hyperlipidemia -Essential hypertension -Coronary artery disease a prior [place] -Primary osteoarthritis -Hypothyroid -Diabetic peripheral neuropathy -Blind- left eye -COPD in a current smoker -Chronic nicotine dependence patient cigarette smoker -Conti to both the thighs continue with Silvadene dressings Plan: Discussed with Dr. Banks from neurology. Continue with aspirin and Plavix. Add scheduled Humalog with meals. 6 units. Continue with PTOT
[2019-10-13 04:21] LABS: Glucose,Whole Blood 70 mg/dL (75-99)
[2019-10-13] MEDS: ACETAMINOPHEN TAB 325 MG TAB PO SCH ×2 (05:16→12:07)
[2019-10-13 06:37] LABS: Glucose,Whole Blood 117 mg/dL (75-99)
[2019-10-13] MEDS: LEVOTHYROXINE 100 MCG TAB PO SCH (06:40)
[2019-10-13] MEDS: NICOTINE 21MG/24HR PATCH TRANSDERM SCH (08:18)
[2019-10-13] MEDS: INSULIN ASPART (NovoLOG) 100 UNIT/ML VIAL SQ SCH ×4 (08:27→12:11)
[2019-10-13] MEDS: ASPIRIN 81 MG PO SCH (08:28)
[2019-10-13] MEDS: ENOXAPARIN 40 MG/0.4 ML SYRINGE SQ SCH (08:28)
[2019-10-13] MEDS: CLOPIDOGREL 75 MG TAB PO SCH (08:28)
[2019-10-13] MEDS: FUROSEMIDE 20 MG TAB PO SCH (08:28)
[2019-10-13] MEDS: LISINOPRIL 20 MG TAB PO SCH (08:29)
[2019-10-13] MEDS: MAGNESIUM OXIDE 400 MG TAB PO SCH (08:29)
[2019-10-13] MEDS: GABAPENTIN 300 MG CAP PO SCH (08:29)
[2019-10-13 08:35] VITALS: RESP 18
[2019-10-13 08:40] LABS: Glucose,Whole Blood 238 mg/dL (75-99)
--- NOTE | 2019-10-13 09:46 | ECHOF ---
Referral Reason:Acute CVA MEASUREMENTS -------- HEIGHT: 154.9 cm WEIGHT: 82.1 kg BP: 112/60 RVIDd: 2.4 cm (< 3.3) IVSd: 1.0 cm (0.6 - 1.1) LVIDd: 3.4 cm (3.9 - 5.3) LVPWd: 0.9 cm (0.6 - 1.1) IVSs: 1.5 cm LVIDs: 2.3 cm LVPWs: 1.6 cm LA Diam: 3.0 cm (2.7 - 3.8) Ao Diam: 2.5 cm (2.0 - 3.7) AV Cusp: 1.3 cm (1.5 - 2.6) MV EXCURSION: 13.254 mm (> 18.000) MV EF SLOPE: 60 mm/s (70 - 150) EPSS: 0.2 cm MV E Zachariah: 1.06 m/s MV DecT: 216 ms MV A Zachariah: 0.90 m/s MV E/A Ratio: 1.18 RAP: 5.00 mmHg RVSP: 30.53 mmHg FINDINGS -------- Sinus rhythm. This was a technically adequate study. The left ventricular size is normal. Left ventricular wall thickness is normal. Overall left vent ricular systolic function is normal with, an EF between 60 - 65 %. The right ventricle is normal in size. The left atrial size is normal. The right atrium is normal in size. Contrast study was performed with 2 iv injections of 8 ccs of agitated normal saline, at rest, and wi th cough. No PFO noted The aortic valve is trileaflet and appears structurally normal. The mitral valve is normal. Mild tricuspid regurgitation present. Right ventricular systolic pressure is normal at < 35 mmHg. Trace/mild (physiologic) pulmonic regurgitation. The aortic root size is normal. Normal inferior vena cava with normal inspiratory collapse consistent with estimated right atrial pre ssure of 5 mmHg. There is a small, generalized pericardial effusion present. CONCLUSIONS -------- 1. Sinus rhythm. 2. This was a technically adequate study. 3. The left ventricular size is normal. 4. Left ventricular wall thickness is normal. 5. Overall left ventricular systolic function is normal with, an EF between 60 - 65 %. 6. The right ventricle is normal in size. 7. The left atrial size is normal. 8. The right atrium is normal in size. 9. Contrast study was performed with 2 iv injections of 8 ccs of agitated normal saline, at rest, and with cough. 10. No PFO noted 11. The aortic valve is trileaflet and appears structurally normal. 12. The mitral valve is normal. 13. Mild tricuspid regurgitation present. 14. Right ventricular systolic pressure is normal at < 35 mmHg. 15. Trace/mild (physiologic) pulmonic regurgitation. 16. The aortic root size is normal. 17. Normal inferior vena cava with normal inspiratory collapse consistent with estimated right atrial pressure of 5 mmHg. 18. There is a small, generalized pericardial effusion present. FEDERAL JUDGE: Daisy Tate RDCS
[2019-10-13 11:23] LABS: Glucose,Whole Blood 228 mg/dL (75-99)
[2019-10-13 11:54] VITALS: BP 123/59; PULSE 87; TEMP 96.1
--- NOTE | 2019-10-13 19:49 | P.DS ---
Providers Date of admission: 10/11/19 13:19 Expected date of discharge: 10/13/19 Attending physician: Estevan Nava Consults: 10/11/19 13:15 Consult Physician Routine Consulting Provider: Elvira Wellington Consult Reason/Comments: left arm weakness, possible CVA Do you want consulting provider notified?: Yes, Notify in am Primary care physician: Guido Corey Hospital Course: Chief Complaint: Left-sided weakness History of presenting complaint: This is a pleasant 58-year-old patient of Dr. Escobedo. Chronic stable medical conditions include diabetes mellitus, hypertension, hyperlipidemia, osteoarthritis, hypothyroid, blinders left eye, peripheral neuropathy. Patient active smoker. Patient's had left arm weakness off and on for about 3 months and she's had a workup done by Dr. Hillman the local neurologist. Nothing specific cause was found. Patient now presents with left arm and leg becoming weaker since last night. Patient also felt dizzy this morning nearly passing out. Also felt weak. No change in her vision. No change in speech or voice. Initial computed tomography scan was unremarkable. Patient about 2 weeks ago also spilled hot coffee and eyes and that is getting topical treatment. Neurology was consulted. Admitted with acute nnxnsa-mnut-gdmrm weakness persist. On aspirin and Plavix. Tolerating diet. Did well with physical therapist Mwdbu-eeqv-vqtjv weakness is much better. Still some present. Discussed with physical therapy. Patient very keen on going home. Home PTOT ordered. Care discussed at length with the patient. Including smoking cessation. Discussion and discharge planning more than 35 minutes Consultation: Dr. Banks from neurology Physical examination: VITAL SIGNS: 96.1, 87, 18, 123/59, 98% on room air GENERAL: Sitting up, comfortable EYES: Pupils equal. Conjunctiva normal. HEENT: External appearance of nose and ears normal, oral cavity grossly normal. NECK: JVD not raised; masses not palpable. HEART: First and second heart sounds are normal; no edema. LUNGS: Respiratory rate increased, decreased breath sounds . ABDOMEN: Soft, nontender, liver spleen not palpable, no masses palpable DERMATOLOGICAL: Conti to both the thighs. PSYCH: Alert and oriented x3; mood and affect normal. NEUROLOGICAL: [Cranial nerves grossly intact; no facial asymmetry, power in the left arm 4 x 5, power in the left leg 4 x 5,-improved INVESTIGATIONS, reviewed in the clinical context: Accu-Cheks 117, 138, 228 LDL 67 Brain MRA-multifocal evolving right-sided acute lacunar infarcts involving pre dominantly right parietal lobe the setting of underlying cerebral atrophy Previous testing White count 7.8 hemoglobin 14.4 platelets 337 potassium 4.6 creatinine 0.69 Accu-Cheks 190, 199 COVID-19 PCR-not detected EKG tracing personally reviewed by me-normal sinus rhythm Chest x-ray film personally reviewed by me-questionable right-sided infiltrate CT angiography of the brain-negative Computed tomography scan of the brain without contrast-AIDS related chronic changes Assessment: -Acute ischemic stroke -multifocal right-sided lacunar infarcts involving predominantly the right parietal, POA -Diabetes mellitus type 2, uncontrolled with hyperglycemia -Hyperlipidemia -Essential hypertension -Coronary artery disease a prior [place] -Primary osteoarthritis -Hypothyroid -Diabetic peripheral neuropathy -Blind- left eye -COPD in a current smoker -Chronic nicotine dependence patient cigarette smoker -Conti to both the thighs continue with Silvadene dressings Disposition: Home Patient Condition at Discharge: Stable Plan - Discharge Summary New Discharge Prescriptions: New Nicotine 21Mg/24Hr Patch [Habitrol] 1 patch TRANSDERM DAILY #14 patch Melatonin 3 mg PO HS PRN tablet PRN Reason: Insomnia Clopidogrel [Plavix] 75 mg PO DAILY #30 tab Continue Atorvastatin Calcium [Lipitor] 40 mg PO HS Gabapentin 600 mg PO TID Aspirin 81 mg PO DAILY Latanoprost Ophth [Xalatan 0.005%] 1 drop BOTH EYES HS Cholecalciferol [Vitamin D3 (25 Mcg = 1000 Iu)] 1,000 unit PO DAILY Acetaminophen Tab [Tylenol] 325 mg PO Q8H Bisacodyl [Dulcolax] 10 mg RECTAL DAILY PRN PRN Reason: Constipation HYDROcodone/APAP 5-325MG [[place] 5-325] 1 tab PO Q6H PRN PRN Reason: Pain Insulin Degludec [Tresiba Flextouch U-200] 26 units SQ HS Insulin Lispro [Admelog Solostar] See Protocol SQ ACHS Lactulose 20 gm PO DAILY PRN PRN Reason: Constipation Levothyroxine Sodium [Synthroid] 100 mcg PO DAILY Lisinopril [Zestril] 20 mg PO DAILY Polyethylene Glycol 3350 [Miralax] 17 gm PO DAILY PRN PRN Reason: Constipation SILVER sulfADIAZINE Cream [Silvadene 1% Cream] 1 applic TOPICAL DAILY Discontinued Docusate 250mg 250 mg PO DAILY PRN PRN Reason: Constipation Naproxen 375 mg PO BID PRN PRN Reason: Pain No Action Furosemide [Lasix] 20 mg PO BID Discharge Medication List Aspirin 81 mg PO DAILY 07/27/14 [History] Atorvastatin Calcium [Lipitor] 40 mg PO HS 07/27/14 [History] Furosemide [Lasix] 20 mg PO BID 07/27/14 [History] Gabapentin 600 mg PO TID 07/27/14 [History] Latanoprost Ophth [Xalatan 0.005%] 1 drop BOTH EYES HS 07/27/14 [History] Cholecalciferol [Vitamin D3 (25 Mcg = 1000 Iu)] 1,000 unit PO DAILY 08/15/16 [History] Acetaminophen Tab [Tylenol] 325 mg PO Q8H 10/11/19 [History] Bisacodyl [Dulcolax] 10 mg RECTAL DAILY PRN 10/11/19 [History] HYDROcodone/APAP 5-325MG [[place] 5-325] 1 tab PO Q6H PRN 10/11/19 [History] Insulin Degludec [Tresiba Flextouch U-200] 26 units SQ HS 10/11/19 [History] Insulin Lispro [Admelog Solostar] See Protocol SQ ACHS 10/11/19 [History] Lactulose 20 gm PO DAILY PRN 10/11/19 [History] Levothyroxine Sodium [Synthroid] 100 mcg PO DAILY 10/11/19 [History] Lisinopril [Zestril] 20 mg PO DAILY 10/11/19 [History] Polyethylene Glycol 3350 [Miralax] 17 gm PO DAILY PRN 10/11/19 [History] SILVER sulfADIAZINE Cream [Silvadene 1% Cream] 1 applic TOPICAL DAILY 10/11/19 [History] Clopidogrel [Plavix] 75 mg PO DAILY #30 tab 10/13/19 [Rx] Melatonin 3 mg PO HS PRN tablet 10/13/19 [Rx] Nicotine 21Mg/24Hr Patch [Habitrol] 1 patch TRANSDERM DAILY #14 patch 10/13/19 [Rx] Follow up Appointment(s)/Referral(s): Guido Zurita MD [Primary Care Provider] - 1-2 days [facility], [NON-STAFF] - Betina Hillman MD [Medical Doctor] - 1 Week Patient Instructions/Handouts: Ischemic Stroke (DC) Activity/Diet/Wound Care/Special Instructions: home PT/OT Discharge Disposition: HOME SELF-CARE
== END 2019-10-13 12:35 | disposition home health service (06) | DRG 65 ==
LOC: EC 11:38 → 3SCARD 13:19
PROVIDERS: ADMIT Hospitalist; ATTEND Hospitalist
DX: I63.9 Cerebral infarction, unspecified (principal); G81.94 Hemiplegia, unspecified affecting left nondominant side; L97.121 Non-pressure chronic ulcer of left thigh limited to breakdown of skin; L97.111 Non-pressure chronic ulcer of right thigh limited to breakdown of skin; E10.42 Type 1 diabetes mellitus with diabetic polyneuropathy; E10.51 Type 1 diabetes mellitus with diabetic peripheral angiopathy without gangrene; E10.622 Type 1 diabetes mellitus with other skin ulcer; E10.39 Type 1 diabetes mellitus with other diabetic ophthalmic complication; R29.702 NIHSS score 2; Z11.59 Encounter for screening for other viral diseases; E03.9 Hypothyroidism, unspecified; E10.65 Type 1 diabetes mellitus with hyperglycemia; E78.5 Hyperlipidemia, unspecified; F17.210 Nicotine dependence, cigarettes, uncomplicated; H54.62 Unqualified visual loss, left eye, normal vision right eye; I10 Essential (primary) hypertension; I25.10 Atherosclerotic heart disease of native coronary artery without angina pectoris; I25.2 Old myocardial infarction; J44.9 Chronic obstructive pulmonary disease, unspecified; M19.91 Primary osteoarthritis, unspecified site; E05.00 Thyrotoxicosis with diffuse goiter without thyrotoxic crisis or storm; H42 Glaucoma in diseases classified elsewhere; T24.211A Burn of second degree of right thigh, initial encounter; T24.212A Burn of second degree of left thigh, initial encounter; Z79.4 Long term (current) use of insulin; Z79.82 Long term (current) use of aspirin; Z79.890 Hormone replacement therapy; Z79.899 Other long term (current) drug therapy; Z88.1 Allergy status to other antibiotic agents; Z88.8 Allergy status to other drugs, medicaments and biological substances; Z90.49 Acquired absence of other specified parts of digestive tract; Z98.49 Cataract extraction status, unspecified eye; Z96.1 Presence of intraocular lens; Z83.3 Family history of diabetes mellitus
CPT/HCPCS: 36415; 70450; 70496; 70498; 70551; 71046; 80053; 80061; 83036; 84484; 85025; 85610; 85730; 87635; 93005; 93306; 99285

== ENCOUNTER → 2020-08-07 | Outpatient (CLI) | payer OTHER ==
--- NOTE | 2020-08-07 15:43 | XR ---
EXAMINATION TYPE: XR chest 2V DATE OF EXAM: 08/07/2020 COMPARISON: Chest x-ray 10/11/2019 HISTORY: R06.09, dyspnea TECHNIQUE: Frontal and lateral views of the chest are obtained. FINDINGS: There is no focal air space opacity, pleural effusion, or pneumothorax seen. Strand-like d ensity in the left midlung may represent some atelectatic change or scar. The cardiac silhouette siz e is within normal limits. The osseous structures are intact. IMPRESSION: No acute cardiopulmonary process.
== END | disposition home or self-care (01) ==
LOC: RADXRMAIN 11:57
PROVIDERS: ATTEND Nurse Practitioner
DX: R06.09 Other forms of dyspnea (principal)
CPT/HCPCS: 71046

== ENCOUNTER 2020-08-19 16:28 | Emergency (ER) | payer OTHER ==
[2020-08-19 16:34] LABS: Glucose,Whole Blood 190 mg/dL (75-99)
[2020-08-19 16:40] VITALS: RESP 18; TEMP 97.6
[2020-08-19] MEDS ORDERED: PROPARACAINE 0.5% OPHTH DROPS 15 ML BTL LEFT EYE STA (16:58)
--- NOTE | 2020-08-19 17:21 | CT ---
EXAMINATION TYPE: CT brain wo con for TPA DATE OF EXAM: 08/19/2020 COMPARISON: 10/11/2019 HISTORY: blurry vision CT DLP: 1098.4 mGycm Automated exposure control for dose reduction was used. There is cerebral cortical atrophy. There is no mass effect nor midline shift. There is no sign of in tracranial hemorrhage. The calvarium is intact. Skull base is intact. There is incomplete pneumatizat ion right mastoid sinus. IMPRESSION: Cerebral atrophy. No acute intracranial abnormality. No change.
[2020-08-19 18:02] LABS: Basophils % (A) 1 %; Eosinophils # (A) 0.2 k/uL (0-0.7); Eosinophils % (A) 2 %; HCT 40.3 % (34.0-46.0); HGB 13.5 gm/dL (11.4-16.0); Lymphocytes # (A) 1.5 k/uL (1.0-4.8); Lymphocytes % (A) 21 %; MCH 33.2 pg (25.0-35.0); MCHC 33.5 g/dL (31.0-37.0); MCV 99.1 fL (80.0-100.0); Mean Platelet Volume 7.4; Monocytes # (A) 0.5 k/uL (0-1.0); Monocytes % (A) 6 %; Neutrophils # (A) 4.9 k/uL (1.3-7.7); Neutrophils % (A) 69 %; Platelet Count 298 k/uL (150-450); RBC 4.07 m/uL (3.80-5.40); RDW 14.5 % (11.5-15.5); WBC 7.1 k/uL (3.8-10.6)
[2020-08-19 18:15] LABS: INR 0.8 (<1.2); Partial Thromboplastin Time 22.4 sec (22.0-30.0); Prothrombin Time 9.4 sec (9.0-12.0)
[2020-08-19 18:17] LABS: Chloride 104 mmol/L (98-107)
[2020-08-19 18:19] LABS: ALT 15 U/L (4-34); AST 21 U/L (14-36); African American GFR (CKD) >90 (>60 ml/min/1.73 sqM); Albumin 3.7 g/dL (3.5-5.0); Alkaline Phosphatase 78 U/L (38-126); Anion Gap 7 mmol/L; Blood Urea Nitrogen 18 mg/dL (7-17); Calcium 9.3 mg/dL (8.4-10.2); Carbon Dioxide 27 mmol/L (22-30); Glucose 136 mg/dL (74-99); Non-African American GFR(CKD) 80 (>60 ml/min/1.73 sqM); Potassium 4.1 mmol/L (3.5-5.1); Sodium 138 mmol/L (137-145); Total Bilirubin 0.3 mg/dL (0.2-1.3); Total Protein 6.1 g/dL (6.3-8.2)
--- NOTE | 2020-08-19 18:36 | ED ---
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 Next injection is scheduled for September 12. Patient reports she took a nap around 2 PM today, she woke up around 3:30 PM and noted that the patient and her right thigh which is her good eye was very blurry. Patient describes the vision is feeling as though she is opening her eyes under water. She denies any eye pain. She reports that she has daily headaches and has a mild headache today but not as severe as her typical. She denies any recent injuries or trauma to the face or eye. She does have a history of TIAs in the past. - Related Data Home Medications Medication Instructions Recorded Confirmed Aspirin 81 mg PO DAILY 07/27/14 08/19/20 Furosemide [Lasix] 20 mg PO DAILY 07/27/14 08/19/20 Gabapentin 600 mg PO TID 07/27/14 08/19/20 Latanoprost Ophth [Xalatan 0.005%] 1 drop BOTH EYES HS 07/27/14 08/19/20 Acetaminophen Tab [Tylenol] 650 mg PO Q8H PRN 10/11/19 08/19/20 lisinopriL [Zestril] 20 mg PO DAILY 10/11/19 08/19/20 Atorvastatin [Lipitor] 80 mg PO DAILY 08/19/20 08/19/20 Brimonidine Tartrate [Alphagan P 1 drops BOTH EYES BID 08/19/20 08/19/20 0.2% Ophth Soln] Cholecalciferol [Vitamin D3 (25 25 mcg PO DAILY 08/19/20 08/19/20 Mcg = 1000 Iu)] Insulin Aspart [NovoLOG Flexpen] See Protocol SQ AC-TID 08/19/20 08/19/20 Levothyroxine Sodium [Synthroid] 75 mcg PO DAILY 08/19/20 08/19/20 Previous Rx's Medication Instructions Recorded Clopidogrel [Plavix] 75 mg PO DAILY #30 tab 10/13/19 Allergies Allergy/AdvReac Type Severity Reaction Status Date / Time cephalexin monohydrate Allergy Vomiting Verified 08/19/20 17:49 [From Keflex] prochlorperazine edisylate AdvReac SOB Verified 08/19/20 17:49 [From Compazine] prochlorperazine maleate AdvReac SOB Verified 08/19/20 17:49 [From Compazine] Review of Systems ROS Statement: Those systems with pertinent positive or pertinent negative responses have been documented in the HPI. ROS Other: All systems not noted in ROS Statement are negative. 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, neuropathy Last Myocardial Infarction Date:: 1994 History of Any Multi-Drug Resistant Organisms: None Reported Past Surgical History: Appendectomy, Section, Tonsillectomy Additional Past Surgical History / Comment(s): breast biopsy, cataract Past Anesthesia/Blood Transfusion Reactions: No Reported Reaction Past Psychological History: No Psychological Hx Reported Smoking Status: Current every day smoker, Heavy tobacco smoker Past Alcohol Use History: None Reported Past Drug Use History: None Reported - Past Family History Father Family Medical History: Diabetes Mellitus General Exam - General Exam Comments Initial Comments: Physical Exam GENERAL: Chronically ill-appearing obese female in no acute distress HENT: Normocephalic, Atraumatic. EYES: Proptosis bilaterally Intraocular pressure on the right measured 16, 17, 14 PULMONARY: Unlabored respirations. No audible rales rhonchi or wheezing was noted. CARDIOVASCULAR: There is a regular rate and rhythm without any murmurs gallops or rubs. ABDOMEN: Soft and nontender with normal bowel sounds. SKIN: Skin is clear with no lesions or rashes and otherwise unremarkable. : Deferred NEUROLOGIC: Patient is alert and oriented x3. Moving all extremities spontaneously No facial droop MUSCULOSKELETAL: Normal extremities with adequate strength and full range of motion. No lower extremity swelling or edema. No calf tenderness. PSYCHIATRIC: Agitated Course Vital Signs 08/19/20 08/19/20 08/19/20 16:34 17:57 20:16 Temperature 97.6 F Pulse Rate 89 70 85 Respiratory 18 18 18 Rate Blood Pressure 143/82 141/55 118/77 O2 Sat by Pulse 100 98 98 Oximetry EKG Findings - EKG Comments: EKG Findings:: EKG was obtained due to complaint of neuro deficit EKG was obtained at 1638 rate is 82 sinus normal axis normal intervals no acute ST elevations or depressions no evidence of ischemia or infarction Medical Decision Making - Lab Data Result diagrams: 08/19/20 17:56 08/19/20 17:56 Lab Results 08/19/20 08/19/20 08/19/20 Range/Units 16:33 17:56 17:56 WBC 7.1 (3.8-10.6) k/uL RBC 4.07 (3.80-5.40) m/uL Hgb 13.5 (11.4-16.0) gm/dL Hct 40.3 (34.0-46.0) % MCV 99.1 (80.0-100.0) fL MCH 33.2 (25.0-35.0) pg MCHC 33.5 (31.0-37.0) g/dL RDW 14.5 (11.5-15.5) % Plt Count 298 (150-450) k/uL MPV 7.4 Neutrophils % 69 % Lymphocytes % 21 % Monocytes % 6 % Eosinophils % 2 % Basophils % 1 % Neutrophils # 4.9 (1.3-7.7) k/uL Lymphocytes # 1.5 (1.0-4.8) k/uL Monocytes # 0.5 (0-1.0) k/uL Eosinophils # 0.2 (0-0.7) k/uL Basophils # 0.0 (0-0.2) k/uL PT 9.4 (9.0-12.0) sec INR 0.8 (<1.2) APTT 22.4 (22.0-30.0) sec Sodium (137-145) mmol/L Potassium (3.5-5.1) mmol/L Chloride (98-107) mmol/L Carbon Dioxide (22-30) mmol/L Anion Gap mmol/L BUN (7-17) mg/dL Creatinine (0.52-1.04) mg/dL Est GFR (CKD-EPI)AfAm (>60 ml/min/1.73 sqM) Est GFR (CKD-EPI)NonAf (>60 ml/min/1.73 sqM) Glucose (74-99) mg/dL POC Glucose (mg/dL) 190 H (75-99) mg/dL POC Glu Electric Freight Car Operator ID Mario Muniz Calcium (8.4-10.2) mg/dL Total Bilirubin (0.2-1.3) mg/dL AST (14-36) U/L ALT (4-34) U/L Alkaline Phosphatase (38-126) U/L Total Protein (6.3-8.2) g/dL Albumin (3.5-5.0) g/dL 08/19/20 Range/Units 17:56 WBC (3.8-10.6) k/uL RBC (3.80-5.40) m/uL Hgb (11.4-16.0) gm/dL Hct (34.0-46.0) % MCV (80.0-100.0) fL MCH (25.0-35.0) pg MCHC (31.0-37.0) g/dL RDW (11.5-15.5) % Plt Count (150-450) k/uL MPV Neutrophils % % Lymphocytes % % Monocytes % % Eosinophils % % Basophils % % Neutrophils # (1.3-7.7) k/uL Lymphocytes # (1.0-4.8) k/uL Monocytes # (0-1.0) k/uL Eosinophils # (0-0.7) k/uL Basophils # (0-0.2) k/uL PT (9.0-12.0) sec INR (<1.2) APTT (22.0-30.0) sec Sodium 138 (137-145) mmol/L Potassium 4.1 (3.5-5.1) mmol/L Chloride 104 (98-107) mmol/L Carbon Dioxide 27 (22-30) mmol/L Anion Gap 7 mmol/L BUN 18 H (7-17) mg/dL Creatinine 0.81 (0.52-1.04) mg/dL Est GFR (CKD-EPI)AfAm >90 (>60 ml/min/1.73 sqM) Est GFR (CKD-EPI)NonAf 80 (>60 ml/min/1.73 sqM) Glucose 136 H (74-99) mg/dL POC Glucose (mg/dL) (75-99) mg/dL POC Glu Electric Freight Car Operator ID Calcium 9.3 (8.4-10.2) mg/dL Total Bilirubin 0.3 (0.2-1.3) mg/dL AST 21 (14-36) U/L ALT 15 (4-34) U/L Alkaline Phosphatase 78 (38-126) U/L Total Protein 6.1 L (6.3-8.2) g/dL Albumin 3.7 (3.5-5.0) g/dL Disposition Clinical Impression: Vision changes Disposition: HOME SELF-CARE Condition: Stable Additional Instructions: You are to be seein in Dr Becerra's office tomorrow. Call first thing in the morning to schedule your follow up appointment. Is patient prescribed a controlled substance at d/c from ED?: No Referrals: Mario Galindo MD [Primary Care Provider] - 1-2 days
[2020-08-19] MEDS: TROPICAMIDE 1% OPHTH DROPS 2 ML BTL BOTH EYES SCH ×2 (19:00→19:03)
[2020-08-19 20:17] VITALS: BP 118/77; PULSE 85
[2020-08-19] MEDS ORDERED: ACETAMINOPHEN TAB 325 MG TAB PO STA (20:17)
--- NOTE | 2020-08-19 21:37 | CONS ---
CONSULTATION She is a 59-year-old with known patient in our office with advanced diabetic retinopathy. 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 The right eye has cystoid macular edema with proliferative diabetic retinopathy. Eye examination: Vision right eye 20/200. Left eye no light perception. Extraocular motility full. Confrontation right eye is generalized constriction from the PRP. The lens is clear. Mild vitreous hemorrhage and mild macular edema seen with the scope. Unable to evaluate the rest of the retina, needs OCT. ASSESSMENT: 1. Proliferative diabetic retinopathy with macular edema. 2. Blind left eye from diabetes. PLAN: I advised to see the patient tomorrow to do an OCT macular to evaluate her macula. May need injections in the vitreous, is followed with our retina specialist in our office, so please arrange to see me tomorrow at 9:00 am in the office. MMODL / IJN: [id number] /
== END 2020-08-19 21:02 | disposition home or self-care (01) ==
LOC: EC 16:28
DX: H53.8 Other visual disturbances (principal); H54.62 Unqualified visual loss, left eye, normal vision right eye; I10 Essential (primary) hypertension; E11.40 Type 2 diabetes mellitus with diabetic neuropathy, unspecified; E11.39 Type 2 diabetes mellitus with other diabetic ophthalmic complication; H40.9 Unspecified glaucoma; H42 Glaucoma in diseases classified elsewhere; E11.36 Type 2 diabetes mellitus with diabetic cataract; E07.9 Disorder of thyroid, unspecified; E78.5 Hyperlipidemia, unspecified; I25.2 Old myocardial infarction; F17.200 Nicotine dependence, unspecified, uncomplicated; Z79.890 Hormone replacement therapy; Z79.82 Long term (current) use of aspirin; Z79.899 Other long term (current) drug therapy; Z79.4 Long term (current) use of insulin; Z88.1 Allergy status to other antibiotic agents; Z88.8 Allergy status to other drugs, medicaments and biological substances; Z86.73 Personal history of transient ischemic attack (TIA), and cerebral infarction without residual deficits
CPT/HCPCS: 36415; 70450; 80053; 85025; 85610; 85730; 93005; 99285

== ENCOUNTER → 2020-08-27 | Outpatient (CLI) | payer OTHER ==
--- NOTE | 2020-08-29 09:58 | P.ARTDOP ---
Arterial Doppler LOWER EXTREMITY ARTERIAL DOPPLER: DATE OF SERVICE: 08/27/2020: Reason for study: Bilateral leg swelling. Doppler waveforms: Multiphasic bilaterally throughout. Pulse volume recording: []. Pressure gradients: None. Ankle-brachial indices: Ankles cannot be occluded. Toe brachial indices: 0.62 on the right, 0.75 on the left Impression: Normal perfusion. Lack of ability to occlude the ankle suggests calcific wall disease. Clinical correlation recommended..
== END | disposition home or self-care (01) ==
LOC: RADUSWWP 12:28
PROVIDERS: ATTEND Family Medicine
DX: I73.9 Peripheral vascular disease, unspecified (principal)
CPT/HCPCS: 93922

== ENCOUNTER → 2020-09-10 | Outpatient (CLI) | payer OTHER ==
--- NOTE | 2020-09-11 10:49 | MM ---
Reason for exam: screening (asymptomatic). Last mammogram was performed 1 year and 9 months ago. History: Patient is postmenopausal. Benign right mammotome panel of the right breast, October 03, 2013. Physical Findings: A clinical breast exam by your physician is recommended on an annual basis and results should be correlated with mammographic findings. MG Screening Mammo w CAD Bilateral CC and MLO view(s) were taken. Prior study comparison: December 16, 2018, bilateral MG screening mammo w CAD. October 28, 2017, bilateral MG screening mammo w CAD. There are scattered fibroglandular densities. No significant changes when compared with prior studies. ASSESSMENT: Benign, BI-RAD 2 RECOMMENDATION: Routine screening mammogram of both breasts in 1 year.
== END | disposition home or self-care (01) ==
LOC: RADMAMWWP 09:20
PROVIDERS: ATTEND Family Medicine
DX: Z12.31 Encounter for screening mammogram for malignant neoplasm of breast (principal); Z78.0 Asymptomatic menopausal state
CPT/HCPCS: 77067

== ENCOUNTER 2021-07-14 11:28 | Emergency (ER) | payer OTHER ==
--- NOTE | 2021-07-14 12:14 | ED ---
General Adult HPI - General Chief complaint: Dizziness Stated complaint: Dizziness Time Seen by Provider: 07/14/21 11:38 Source: patient, EMS, RN notes reviewed Mode of arrival: EMS Limitations: no limitations - History of Present Illness Initial comments: Patient is a pleasant [age]-year-old female presenting to the emergency department feeling near syncopal. Patient has been having some lightheadedness for a few months. Patient was bending over working in her closet and felt if things get worse she could pass out. Patient has chronic blindness and eye problems. Patient has had some mild difficulty with walking over the past few months. No chest pain or dyspnea. No weakness or confusion. - Related Data Home Medications Medication Instructions Recorded Confirmed Aspirin 81 mg PO DAILY 07/27/14 08/19/20 Furosemide [Lasix] 20 mg PO DAILY 07/27/14 08/19/20 Gabapentin 600 mg PO TID 07/27/14 08/19/20 Latanoprost Ophth [Xalatan 0.005%] 1 drop BOTH EYES HS 07/27/14 08/19/20 Acetaminophen Tab [Tylenol] 650 mg PO Q8H PRN 10/11/19 08/19/20 lisinopriL [Zestril] 20 mg PO DAILY 10/11/19 08/19/20 Atorvastatin [Lipitor] 80 mg PO DAILY 08/19/20 08/19/20 Brimonidine Tartrate [Alphagan P 1 drops BOTH EYES BID 08/19/20 08/19/20 0.2% Ophth Soln] Cholecalciferol [Vitamin D3 (25 25 mcg PO DAILY 08/19/20 08/19/20 Mcg = 1000 Iu)] Insulin Aspart [NovoLOG Flexpen] See Protocol SQ AC-TID 08/19/20 08/19/20 Levothyroxine Sodium [Synthroid] 75 mcg PO DAILY 08/19/20 08/19/20 Previous Rx's Medication Instructions Recorded Clopidogrel [Plavix] 75 mg PO DAILY #30 tab 10/13/19 Allergies Allergy/AdvReac Type Severity Reaction Status Date / Time cephalexin monohydrate Allergy Vomiting Verified 08/19/20 17:49 [From Keflex] prochlorperazine edisylate AdvReac SOB Verified 08/19/20 17:49 [From Compazine] prochlorperazine maleate AdvReac SOB Verified 08/19/20 17:49 [From Compazine] Review of Systems ROS Statement: Those systems with pertinent positive or pertinent negative responses have been documented in the HPI. ROS Other: All systems not noted in ROS Statement are negative. Constitutional: Denies: fever Eyes: Denies: eye pain ENT: Denies: ear pain Respiratory: Denies: cough Cardiovascular: Denies: chest pain Endocrine: Denies: fatigue Gastrointestinal: Denies: abdominal pain Genitourinary: Denies: dysuria Musculoskeletal: Denies: back pain Skin: Denies: rash Neurological: Denies: headache, weakness, confusion 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, neuropathy Last Myocardial Infarction Date:: 1994 History of Any Multi-Drug Resistant Organisms: None Reported Past Surgical History: Appendectomy, Section, Tonsillectomy Additional Past Surgical History / Comment(s): breast biopsy, cataract Past Anesthesia/Blood Transfusion Reactions: No Reported Reaction Past Psychological History: No Psychological Hx Reported Smoking Status: Current every day smoker, Heavy tobacco smoker Past Alcohol Use History: None Reported Past Drug Use History: None Reported - Past Family History Father Family Medical History: Diabetes Mellitus General Exam Limitations: no limitations General appearance: alert, in no apparent distress Head exam: Present: normocephalic Eye exam: Present: other (Exophthalmos. Opacification left eye) ENT exam: Present: normal oropharynx Neck exam: Present: normal inspection Respiratory exam: Present: normal lung sounds bilaterally Cardiovascular Exam: Present: regular rate, normal rhythm GI/Abdominal exam: Present: soft. Absent: tenderness Extremities exam: Present: normal inspection Neurological exam: Present: alert, CN II-XII intact (Except for limitation with eye exam. Exophthalmus. Disconjugate gaze. Opacification left pupil). Absent: motor sensory deficit Expanded Neurological exam: Present: protecting the airway Patient oriented to: Present: person, place. Absent: time (States the year is 2019) Speech: Present: fluid speech Motor strength exam: RUE: 5, LUE: 5, RLE: 5, LLE: 5 Eye Response: (4) open spontaneously Motor Response: (6) obeys commands Verbal Response: (4) confused conversation Psychiatric exam: Present: normal affect, normal mood Skin exam: Present: normal color Course Vital Signs 07/14/21 07/14/21 07/14/21 11:36 12:33 12:34 Temperature 98.4 F Pulse Rate 80 Pulse Rate [ 75 81 Fixture Relamper ] Respiratory 18 18 16 Rate Blood Pressure 136/102 Blood Pressure 143/69 [Left Arm Sitting] Blood Pressure 157/69 [Left Arm Standing] Blood Pressure 142/65 [Left Arm Supine] O2 Sat by Pulse 98 100 98 Oximetry EKG Findings - EKG Comments: EKG Findings:: Normal sinus rhythm with a rate of 79. RI 136. QRS 72. QT 316. QTC 362. Normal axis. Normal QRS. Nonspecific T waves. Medical Decision Making - Medical Decision Making Patient reevaluated and resting comfortably in bed. Patient updated on results. Patient requests discharge home and agrees to follow-up with her doctor. Patient does not want any antibiotics at this time and notified of borderline urine culture and states she will follow-up with her doctor regarding this. - Lab Data Result diagrams: 07/14/21 12:07 07/14/21 12:07 Lab Results 07/14/21 07/14/21 07/14/21 Range/Units 12:07 12:07 12:07 WBC 7.1 (3.8-10.6) k/uL RBC 3.90 (3.80-5.40) m/uL Hgb 13.2 (11.4-16.0) gm/dL Hct 40.6 (34.0-46.0) % MCV 104.1 H (80.0-100.0) fL MCH 33.7 (25.0-35.0) pg MCHC 32.4 (31.0-37.0) g/dL RDW 15.0 (11.5-15.5) % Plt Count 316 (150-450) k/uL MPV 7.8 Neutrophils % 66 % Lymphocytes % 25 % Monocytes % 5 % Eosinophils % 2 % Basophils % 0 % Neutrophils # 4.7 (1.3-7.7) k/uL Lymphocytes # 1.7 (1.0-4.8) k/uL Monocytes # 0.4 (0-1.0) k/uL Eosinophils # 0.1 (0-0.7) k/uL Basophils # 0.0 (0-0.2) k/uL Macrocytosis Moderate PT 9.5 (9.0-12.0) sec INR 0.8 (<1.2) APTT 23.8 (22.0-30.0) sec Sodium 135 L (137-145) mmol/L Potassium 4.5 (3.5-5.1) mmol/L Chloride 100 (98-107) mmol/L Carbon Dioxide 26 (22-30) mmol/L Anion Gap 9 mmol/L BUN 31 H (7-17) mg/dL Creatinine 0.94 (0.52-1.04) mg/dL Est GFR (CKD-EPI)AfAm 76 (>60 ml/min/1.73 sqM) Est GFR (CKD-EPI)NonAf 66 (>60 ml/min/1.73 sqM) Glucose 94 (74-99) mg/dL POC Glucose (mg/dL) (75-99) mg/dL POC Glu Baggage Checker ID Plasma Lactic Acid Gerald (0.7-2.0) mmol/L Calcium 9.5 (8.4-10.2) mg/dL Magnesium 2.4 H (1.6-2.3) mg/dL Total Bilirubin 0.6 (0.2-1.3) mg/dL AST 34 (14-36) U/L ALT 24 (4-34) U/L Alkaline Phosphatase 101 (38-126) U/L Troponin I (0.000-0.034) ng/mL Total Protein 6.8 (6.3-8.2) g/dL Albumin 4.0 (3.5-5.0) g/dL TSH 0.668 (0.465-4.680) mIU/L Free T4 2.12 (0.78-2.19) ng/dL Free T3 pg/mL 3.2 (2.8-5.3) pg/ml Urine Color Urine Appearance (Clear) Urine pH (5.0-8.0) Ur Specific Hamilton (1.001-1.035) Urine Protein (Negative) Urine Glucose (UA) (Negative) Urine Ketones (Negative) Urine Blood (Negative) Urine Nitrite (Negative) Urine Bilirubin (Negative) Urine Urobilinogen (<2.0) mg/dL Ur Leukocyte Esterase (Negative) Urine RBC (0-5) /hpf Urine WBC (0-5) /hpf Ur Squamous Epith Cells (0-4) /hpf Urine Bacteria (None) /hpf Urine Mucus (None) /hpf 07/14/21 07/14/21 07/14/21 Range/Units 12:07 12:07 12:30 WBC (3.8-10.6) k/uL RBC (3.80-5.40) m/uL Hgb (11.4-16.0) gm/dL Hct (34.0-46.0) % MCV (80.0-100.0) fL MCH (25.0-35.0) pg MCHC (31.0-37.0) g/dL RDW (11.5-15.5) % Plt Count (150-450) k/uL MPV Neutrophils % % Lymphocytes % % Monocytes % % Eosinophils % % Basophils % % Neutrophils # (1.3-7.7) k/uL Lymphocytes # (1.0-4.8) k/uL Monocytes # (0-1.0) k/uL Eosinophils # (0-0.7) k/uL Basophils # (0-0.2) k/uL Macrocytosis PT (9.0-12.0) sec INR (<1.2) APTT (22.0-30.0) sec Sodium (137-145) mmol/L Potassium (3.5-5.1) mmol/L Chloride (98-107) mmol/L Carbon Dioxide (22-30) mmol/L Anion Gap mmol/L BUN (7-17) mg/dL Creatinine (0.52-1.04) mg/dL Est GFR (CKD-EPI)AfAm (>60 ml/min/1.73 sqM) Est GFR (CKD-EPI)NonAf (>60 ml/min/1.73 sqM) Glucose (74-99) mg/dL POC Glucose (mg/dL) (75-99) mg/dL POC Glu Baggage Checker ID Plasma Lactic Acid Gerald 1.4 (0.7-2.0) mmol/L Calcium (8.4-10.2) mg/dL Magnesium (1.6-2.3) mg/dL Total Bilirubin (0.2-1.3) mg/dL AST (14-36) U/L ALT (4-34) U/L Alkaline Phosphatase (38-126) U/L Troponin I <0.012 (0.000-0.034) ng/mL Total Protein (6.3-8.2) g/dL Albumin (3.5-5.0) g/dL TSH (0.465-4.680) mIU/L Free T4 (0.78-2.19) ng/dL Free T3 pg/mL (2.8-5.3) pg/ml Urine Color Light Yellow Urine Appearance Clear (Clear) Urine pH 7.0 (5.0-8.0) Ur Specific Hamilton 1.005 (1.001-1.035) Urine Protein Negative (Negative) Urine Glucose (UA) Negative (Negative) Urine Ketones Negative (Negative) Urine Blood Negative (Negative) Urine Nitrite Negative (Negative) Urine Bilirubin Negative (Negative) Urine Urobilinogen <2.0 (<2.0) mg/dL Ur Leukocyte Esterase Large H (Negative) Urine RBC 2 (0-5) /hpf Urine WBC 17 H (0-5) /hpf Ur Squamous Epith Cells <1 (0-4) /hpf Urine Bacteria Rare H (None) /hpf Urine Mucus Rare H (None) /hpf 07/14/21 Range/Units 14:04 WBC (3.8-10.6) k/uL RBC (3.80-5.40) m/uL Hgb (11.4-16.0) gm/dL Hct (34.0-46.0) % MCV (80.0-100.0) fL MCH (25.0-35.0) pg MCHC (31.0-37.0) g/dL RDW (11.5-15.5) % Plt Count (150-450) k/uL MPV Neutrophils % % Lymphocytes % % Monocytes % % Eosinophils % % Basophils % % Neutrophils # (1.3-7.7) k/uL Lymphocytes # (1.0-4.8) k/uL Monocytes # (0-1.0) k/uL Eosinophils # (0-0.7) k/uL Basophils # (0-0.2) k/uL Macrocytosis PT (9.0-12.0) sec INR (<1.2) APTT (22.0-30.0) sec Sodium (137-145) mmol/L Potassium (3.5-5.1) mmol/L Chloride (98-107) mmol/L Carbon Dioxide (22-30) mmol/L Anion Gap mmol/L BUN (7-17) mg/dL Creatinine (0.52-1.04) mg/dL Est GFR (CKD-EPI)AfAm (>60 ml/min/1.73 sqM) Est GFR (CKD-EPI)NonAf (>60 ml/min/1.73 sqM) Glucose (74-99) mg/dL POC Glucose (mg/dL) 90 (75-99) mg/dL POC Glu Baggage Checker ID Princess Sanchez Plasma Lactic Acid Gerald (0.7-2.0) mmol/L Calcium (8.4-10.2) mg/dL Magnesium (1.6-2.3) mg/dL Total Bilirubin (0.2-1.3) mg/dL AST (14-36) U/L ALT (4-34) U/L Alkaline Phosphatase (38-126) U/L Troponin I (0.000-0.034) ng/mL Total Protein (6.3-8.2) g/dL Albumin (3.5-5.0) g/dL TSH (0.465-4.680) mIU/L Free T4 (0.78-2.19) ng/dL Free T3 pg/mL (2.8-5.3) pg/ml Urine Color Urine Appearance (Clear) Urine pH (5.0-8.0) Ur Specific Hamilton (1.001-1.035) Urine Protein (Negative) Urine Glucose (UA) (Negative) Urine Ketones (Negative) Urine Blood (Negative) Urine Nitrite (Negative) Urine Bilirubin (Negative) Urine Urobilinogen (<2.0) mg/dL Ur Leukocyte Esterase (Negative) Urine RBC (0-5) /hpf Urine WBC (0-5) /hpf Ur Squamous Epith Cells (0-4) /hpf Urine Bacteria (None) /hpf Urine Mucus (None) /hpf - Radiology Data Radiology results: report reviewed (Computed tomography scan of the brain shows atrophy. No significant change from prior. No acute hemorrhage or shift.), image reviewed (Chest x-ray shows no acute process) Disposition Clinical Impression: Near syncope Disposition: HOME SELF-CARE Condition: Stable Instructions (If sedation given, give patient instructions): Dizziness (ED), Near Syncope (ED) Additional Instructions: Please follow-up with primary care physician in the next day or 2 for recheck. Have primary care physician review urine culture results. Return for passing out, weakness, confusion, worsening or changing symptoms or other concerns. Is patient prescribed a controlled substance at d/c from ED?: No Referrals: Mario Galindo MD [Primary Care Provider] - 1-2 days Time of Disposition: 14:24
[2021-07-14 12:17] LABS: Basophils % (A) 0 %; Eosinophils # (A) 0.1 k/uL (0-0.7); Eosinophils % (A) 2 %; HCT 40.6 % (34.0-46.0); HGB 13.2 gm/dL (11.4-16.0); Lymphocytes # (A) 1.7 k/uL (1.0-4.8); Lymphocytes % (A) 25 %; MCH 33.7 pg (25.0-35.0); MCHC 32.4 g/dL (31.0-37.0); MCV 104.1 fL (80.0-100.0); Macrocytosis Moderate; Mean Platelet Volume 7.8; Monocytes # (A) 0.4 k/uL (0-1.0); Monocytes % (A) 5 %; Neutrophils # (A) 4.7 k/uL (1.3-7.7); Neutrophils % (A) 66 %; Platelet Count 316 k/uL (150-450); WBC 7.1 k/uL (3.8-10.6)
[2021-07-14 12:25] LABS: INR 0.8 (<1.2); Partial Thromboplastin Time 23.8 sec (22.0-30.0); Prothrombin Time 9.5 sec (9.0-12.0)
[2021-07-14 12:28] LABS: Calcium 9.5 mg/dL (8.4-10.2); Magnesium 2.4 mg/dL (1.6-2.3); Potassium 4.5 mmol/L (3.5-5.1); Total Bilirubin 0.6 mg/dL (0.2-1.3); Total Protein 6.8 g/dL (6.3-8.2)
--- NOTE | 2021-07-14 12:35 | CT ---
EXAMINATION TYPE: CT brain wo con DATE OF EXAM: 07/14/2021 HISTORY: Weakness and dizziness CT DLP: 1060.4 mGycm. Automated Exposure Control for Dose Reduction was Utilized. TECHNIQUE: CT scan of the head is performed without contrast. COMPARISON: CT brain August 19, 2020 FINDINGS: There is no acute intracranial hemorrhage or midline shift identified. There is mild to m oderate diffuse sulcal prominence greatest over the bilateral frontal and temporal lobes and mild romi tricular prominence redemonstrated. Mcgarry-white matter differentiation fairly well maintained. The александр varium is intact. The globes are intact and the visualized sinuses are clear. IMPRESSION: No acute intracranial hemorrhage or midline shift. There is [id number] diffuse ce rebral atrophy greatest over bilateral frontal and temporal lobes redemonstrated. No significant lanny nge from prior.
[2021-07-14 12:45] LABS: T4, Free (Free Thyroxine) 2.12 ng/dL (0.78-2.19)
[2021-07-14 12:51] LABS: Appearance,Urine Clear (Clear); Bacteria,Urine Rare /hpf; Bilirubin,Urine Negative (Negative); Blood,Urine Negative (Negative); Color,Urine Light Yellow; Glucose,Urine (UA) Negative (Negative); Ketones,Urine Negative (Negative); Leukocyte Esterase,Urine Large (Negative); Mucus,Urine Rare /hpf; Nitrite,Urine Negative (Negative); Protein,Urine Negative (Negative); RBC,Urine 2 /hpf (0-5); Specific Gravity,Urine 1.005 (1.001-1.035); Squamous Epithelial Cell,Urine <1 /hpf (0-4); Urobilinogen,Urine <2.0 mg/dL (<2.0); WBC,Urine 17 /hpf (0-5)
--- NOTE | 2021-07-14 12:51 | XR ---
EXAMINATION TYPE: XR chest 2V DATE OF EXAM: 07/14/2021 COMPARISON: Chest x-ray August 07, 2020 HISTORY: Dizziness and weakness. TECHNIQUE: Frontal and lateral views of the chest are obtained. FINDINGS: There is chronic parenchymal change without suspicious new focal air space opacity, pleura l effusion, or pneumothorax seen. The cardiac silhouette size is upper limits of normal. The osseo us structures are intact. IMPRESSION: Mild chronic changes without acute pulmonary process.
[2021-07-14 14:06] LABS: Glucose,Whole Blood 90 mg/dL (75-99)
[2021-07-14 14:44] VITALS: BP 124/69; PULSE 79; RESP 18; TEMP 98.2
== END 2021-07-14 14:53 | disposition home or self-care (01) ==
LOC: EC 11:28
DX: R55 Syncope and collapse (principal); E11.40 Type 2 diabetes mellitus with diabetic neuropathy, unspecified; I10 Essential (primary) hypertension; E78.5 Hyperlipidemia, unspecified; F17.200 Nicotine dependence, unspecified, uncomplicated; Z79.4 Long term (current) use of insulin; Z79.890 Hormone replacement therapy; Z79.02 Long term (current) use of antithrombotics/antiplatelets; Z79.82 Long term (current) use of aspirin; Z79.899 Other long term (current) drug therapy
CPT/HCPCS: 36415; 70450; 71046; 80053; 81001; 83605; 83735; 84439; 84443; 84481; 84484; 85025; 85610; 85730; 87086; 93005; 99285

== ENCOUNTER 2021-08-31 11:01 | Inpatient (IN) | payer OTHER ==
--- NOTE | 2021-08-31 11:36 | ED ---
General Adult HPI - General Chief complaint: Neuro Symptoms/Deficit Stated complaint: L arm numbness Time Seen by Provider: 08/31/21 11:06 Source: patient, EMS Mode of arrival: EMS Limitations: no limitations - History of Present Illness Initial comments: Dictation was produced using [employer] dictation software. please excuse any grammatical, word or spelling errors. Chief Complaint: 60-year-old female presents to the emergency department for left arm numbness and weakness History of Present Illness: 60-year-old female she has past medical history of diabetes and CVA. She presents to the emergency department for left upper extre mity numbness and weakness. She states she got a B12 shot in her hip yesterday at her primary care physician's office. She was sent home when she got home around 12 AM she noticed that her left arm was weak and numb. She decided to come to the emergency department today. Denies any fevers. No headache. She states that her whole left arm from her shoulder down to her fingertips are numb. The ROS documented in this emergency department record has been reviewed and confirmed by me. Those systems with pertinent positive or negative responses have been documented in the HPI. All other systems are other negative and/or noncontributory. PHYSICAL EXAM: General Impression: Alert and oriented x3, not in acute distress HEENT: Normocephalic atraumatic, extra-ocular movements intact, pupils equal and reactive to light bilaterally, mucous membranes moist. Cardiovascular: Heart regular rate and rhythm Chest: Able to complete full sentences, no retractions, no tachypnea Abdomen: abdomen soft, non-tender, non-distended, no organomegaly Musculoskeletal: Pulses present and equal in all extremities, no peripheral edema Motor: no focal deficits noted Neurological: CN II-XII grossly intact, extremity drift of the left arm, decreased sensation to light touch of the left arm Skin: Intact with no visualized rashes Psych: Normal affect and mood ED course: 60-year-old female presents emergency Department with left arm numbness and weakness. Chart review shows that patient has history of brain atrophy on CT from July of this year. Vital signs upon arrival are within acceptable limits. Temp onset was 12 PM yesterday. Patient outside the window for alteplase. . EKG interpretation: Ventricular rate 70, sinus rhythm,. Interval 136, QRS 82, QTc 383. No AR prolongation, no QTC prolongation, no ST or T-wave changes noted. EKG compared to a very 11/25/2021 showing no changes. Overall, this EKG is unremarkable Laboratory evaluation obtained. CBC, coag panel, metabolic panel is unremarkable. Computed tomography scan the brain shows acute/subacute CVA the right parietal occipital region. There also appears to be stable encephalomalacia. Given patient's left upper extremity symptoms, CT findings correlate. CT angiography of the head and neck shows no evidence of large vessel occlusion. Patient observed in emergency department for approximately 3 hours per she is related bedside at 2:10 PM on a be in stable medical condition. Symptoms did not improve. Patient given aspirin will be admitted for further stroke care. Neurology will be consulted. - Related Data Home Medications Medication Instructions Recorded Confirmed Aspirin 81 mg PO DAILY 07/27/14 08/19/20 Furosemide [Lasix] 20 mg PO DAILY 07/27/14 08/19/20 Gabapentin 600 mg PO TID 07/27/14 08/19/20 Latanoprost Ophth [Xalatan 0.005%] 1 drop BOTH EYES HS 07/27/14 08/19/20 Acetaminophen Tab [Tylenol] 650 mg PO Q8H PRN 10/11/19 08/19/20 lisinopriL [Zestril] 20 mg PO DAILY 10/11/19 08/19/20 Atorvastatin [Lipitor] 80 mg PO DAILY 08/19/20 08/19/20 Brimonidine Tartrate [Alphagan P 1 drops BOTH EYES BID 08/19/20 08/19/20 0.2% Ophth Soln] Cholecalciferol [Vitamin D3 (25 25 mcg PO DAILY 08/19/20 08/19/20 Mcg = 1000 Iu)] Insulin Aspart [NovoLOG Flexpen] See Protocol SQ AC-TID 08/19/20 08/19/20 Levothyroxine Sodium [Synthroid] 75 mcg PO DAILY 08/19/20 08/19/20 Previous Rx's Medication Instructions Recorded Clopidogrel [Plavix] 75 mg PO DAILY #30 tab 10/13/19 Allergies Allergy/AdvReac Type Severity Reaction Status Date / Time cephalexin monohydrate Allergy Vomiting Verified 08/31/21 14:07 [From Keflex] prochlorperazine edisylate AdvReac SOB Verified 08/31/21 14:07 [From Compazine] prochlorperazine maleate AdvReac SOB Verified 08/31/21 14:07 [From Compazine] Review of Systems ROS Statement: Those systems with pertinent positive or pertinent negative responses have been documented in the HPI. ROS Other: All systems not noted in ROS Statement are negative. 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, neuropathy Last Myocardial Infarction Date:: 1994 History of Any Multi-Drug Resistant Organisms: None Reported Past Surgical History: Appendectomy, Section, Tonsillectomy Additional Past Surgical History / Comment(s): breast biopsy, cataract Past Anesthesia/Blood Transfusion Reactions: No Reported Reaction Past Psychological History: No Psychological Hx Reported Smoking Status: Current every day smoker, Heavy tobacco smoker Past Alcohol Use History: None Reported Past Drug Use History: None Reported - Past Family History Father Family Medical History: Diabetes Mellitus General Exam Limitations: no limitations Course Vital Signs 08/31/21 08/31/21 08/31/21 11:02 11:47 12:30 Temperature 98.8 F Pulse Rate 85 84 73 Respiratory 18 18 18 Rate Blood Pressure 172/86 157/70 143/76 O2 Sat by Pulse 99 100 96 Oximetry 08/31/21 08/31/21 13:00 14:00 Temperature Pulse Rate 78 79 Respiratory 18 18 Rate Blood Pressure 143/68 134/59 O2 Sat by Pulse 99 99 Oximetry Medical Decision Making - Lab Data Result diagrams: 08/31/21 11:54 08/31/21 11:54 Lab Results 08/31/21 08/31/21 08/31/21 Range/Units 11:54 11:54 11:54 WBC 8.3 (3.8-10.6) k/uL RBC 3.95 (3.80-5.40) m/uL Hgb 13.2 (11.4-16.0) gm/dL Hct 41.0 (34.0-46.0) % MCV 103.6 H (80.0-100.0) fL MCH 33.3 (25.0-35.0) pg MCHC 32.1 (31.0-37.0) g/dL RDW 14.8 (11.5-15.5) % Plt Count 333 (150-450) k/uL MPV 7.8 Neutrophils % 69 % Lymphocytes % 21 % Monocytes % 6 % Eosinophils % 2 % Basophils % 1 % Neutrophils # 5.7 (1.3-7.7) k/uL Lymphocytes # 1.7 (1.0-4.8) k/uL Monocytes # 0.5 (0-1.0) k/uL Eosinophils # 0.2 (0-0.7) k/uL Basophils # 0.1 (0-0.2) k/uL Macrocytosis Slight PT 9.5 (9.0-12.0) sec INR 0.8 (<1.2) APTT 24.7 (22.0-30.0) sec Sodium 138 (137-145) mmol/L Potassium 4.3 (3.5-5.1) mmol/L Chloride 104 (98-107) mmol/L Carbon Dioxide 26 (22-30) mmol/L Anion Gap 8 mmol/L BUN 20 H (7-17) mg/dL Creatinine 0.87 (0.52-1.04) mg/dL Est GFR (CKD-EPI)AfAm 83 (>60 ml/min/1.73 sqM) Est GFR (CKD-EPI)NonAf 72 (>60 ml/min/1.73 sqM) Glucose 88 (74-99) mg/dL Calcium 8.9 (8.4-10.2) mg/dL Magnesium 2.4 H (1.6-2.3) mg/dL Troponin I (0.000-0.034) ng/mL 08/31/21 Range/Units 11:54 WBC (3.8-10.6) k/uL RBC (3.80-5.40) m/uL Hgb (11.4-16.0) gm/dL Hct (34.0-46.0) % MCV (80.0-100.0) fL MCH (25.0-35.0) pg MCHC (31.0-37.0) g/dL RDW (11.5-15.5) % Plt Count (150-450) k/uL MPV Neutrophils % % Lymphocytes % % Monocytes % % Eosinophils % % Basophils % % Neutrophils # (1.3-7.7) k/uL Lymphocytes # (1.0-4.8) k/uL Monocytes # (0-1.0) k/uL Eosinophils # (0-0.7) k/uL Basophils # (0-0.2) k/uL Macrocytosis PT (9.0-12.0) sec INR (<1.2) APTT (22.0-30.0) sec Sodium (137-145) mmol/L Potassium (3.5-5.1) mmol/L Chloride (98-107) mmol/L Carbon Dioxide (22-30) mmol/L Anion Gap mmol/L BUN (7-17) mg/dL Creatinine (0.52-1.04) mg/dL Est GFR (CKD-EPI)AfAm (>60 ml/min/1.73 sqM) Est GFR (CKD-EPI)NonAf (>60 ml/min/1.73 sqM) Glucose (74-99) mg/dL Calcium (8.4-10.2) mg/dL Magnesium (1.6-2.3) mg/dL Troponin I <0.012 (0.000-0.034) ng/mL Disposition Clinical Impression: CVA (cerebral vascular accident) Disposition: ADMITTED IP TO THIS [facility] Condition: Serious Referrals: Priya Bell MD [Primary Care Provider] - 1-2 days
[2021-08-31 12:06] LABS: Basophils # (A) 0.1 k/uL (0-0.2); Basophils % (A) 1 %; Eosinophils # (A) 0.2 k/uL (0-0.7); Eosinophils % (A) 2 %; HGB 13.2 gm/dL (11.4-16.0); Lymphocytes # (A) 1.7 k/uL (1.0-4.8); Lymphocytes % (A) 21 %; MCH 33.3 pg (25.0-35.0); MCHC 32.1 g/dL (31.0-37.0); MCV 103.6 fL (80.0-100.0); Macrocytosis Slight; Mean Platelet Volume 7.8; Monocytes # (A) 0.5 k/uL (0-1.0); Monocytes % (A) 6 %; Neutrophils # (A) 5.7 k/uL (1.3-7.7); Neutrophils % (A) 69 %; Platelet Count 333 k/uL (150-450); RBC 3.95 m/uL (3.80-5.40); RDW 14.8 % (11.5-15.5); WBC 8.3 k/uL (3.8-10.6)
--- NOTE | 2021-08-31 12:16 | XR ---
EXAMINATION TYPE: XR chest 1V portable DATE OF EXAM: 08/31/2021 12:02 PM COMPARISON: Radiograph 07/14/2021. TECHNIQUE: XR chest 1V portable Frontal view of the chest. CLINICAL INDICATION:Female, 60 years old with history of left arm weakness, numbness; FINDINGS: Lungs/Pleura: There is no evidence of pleural effusion, focal consolidation, or pneumothorax. Pulmonary vascularity: Unremarkable. Heart/mediastinum: Cardiomediastinal silhouette is unremarkable. Musculoskeletal: No acute osseous pathology. IMPRESSION: No acute cardiopulmonary disease/process.
[2021-08-31 12:22] LABS: Calcium 8.9 mg/dL (8.4-10.2); Magnesium 2.4 mg/dL (1.6-2.3)
[2021-08-31 12:25] LABS: INR 0.8 (<1.2); Partial Thromboplastin Time 24.7 sec (22.0-30.0); Prothrombin Time 9.5 sec (9.0-12.0)
--- NOTE | 2021-08-31 12:33 | CT ---
EXAMINATION TYPE: CT brain wo con CT DLP: 1097.8 mGycm, Automated exposure control for dose reduction was used. DATE OF EXAM: 08/31/2021 12:24 PM COMPARISON: Prior CT Brain from 07/14/2021. CLINICAL INDICATION:Female, 60 years old with history of left arm weakness and numbness, Lt arm numbn ess TECHNIQUE: Brain: Multiple axial CT images of the brain were obtained without IV contrast. FINDINGS: Brain: Extra-axial spaces: No abnormal extra-axial fluid collections. Ventricular system: Within normal limits Cerebral parenchyma: Right frontal lobe subtle malacia from prior injury. New loss of bass-white diff erentiation within the right occipital parietal region. No acute intraparenchymal hemorrhage or mass effect. The remainder of the bass-white junctions are well differentiated. Cerebellum: Unremarkable. Mass effect: No evidence of midline shift. Intracranial vasculature: unremarkable Soft tissues: Normal. Calvarium/osseous structures: No depressed skull fracture. Paranasal sinuses and mastoid air cells: Mild scattered paranasal sinus disease. Visualized orbits: Orbital contents are intact. IMPRESSION: 1. Acute/subacute CVA of the right parietal occipital region. 2. Similar encephalomalacia of the posterior right frontal lobe from prior injury.
[2021-08-31 12:50] LABS: Potassium 4.3 mmol/L (3.5-5.1)
[2021-08-31] MEDS ORDERED: MORPHINE SULFATE 4 MG/ML SYRINGE IV STA (14:00)
--- NOTE | 2021-08-31 14:02 | CT ---
EXAMINATION TYPE: CT angio head neck CT DLP: 387.9 mGycm, Automated exposure control for dose reduction was used. DATE OF EXAM: 08/31/2021 1:35 PM COMPARISON: CT brain same day. CLINICAL INDICATION:Female, 60 years old with history of neurologic deficit, Left arm weakness TECHNIQUE: Axially acquired helical CT angiogram of the head and neck was obtained with contrast util izing 75 cc of Isovue-370 administered intravenously. Axial images are supplemented with 3D reconstru ctions which were post-processed at an independent workstation. NASCET criteria used. FINDINGS: CTA HEAD: Right frontal lobe encephalomalacia from prior injury. New loss of bass-white differentiation within the right occipital parietal region. No evidence of acute intracranial hemorrhage, mass effect, or midline shift. The ventricles, sulci, a nd cisterns are unremarkable. The visualized portions of the internal carotid arteries, middle cerebral arteries, anterior cerebral arteries, and posterior cerebral arteries are patent. There is a origin of the right posterior cerebral artery. The basilar and vertebral arteries are patent. CTA NECK: Right Carotid System: The common carotid artery and external carotid artery are patent. The carotid bifurcation demonstrate s no evidence of hemodynamically significant stenosis. The remaining portions of the internal carotid artery demonstrate normal size without significant narrowing. Left Carotid System: The common carotid artery and external carotid artery are patent. The carotid bifurcation demonstrate s no evidence of hemodynamically significant stenosis. The remaining portions of the internal carotid artery demonstrate normal size without significant narrowing. Vertebral arteries are patent without evidence hemodynamically significant stenosis. There is a three-vessel aortic arch. The origins of the great vessels are patent. No evidence of hemo dynamically significant stenosis. IMPRESSION: 1. No evidence of dissection of the cervical internal carotid arteries or vertebral arteries or any e vidence of significant stenosis at the carotid bifurcations. 2. No evidence of high-grade stenosis or intracranial aneurysm. 1. Acute/subacute CVA of the right parietal occipital region. 2. Similar encephalomalacia of the posterior right frontal lobe from prior injury.
[2021-08-31] MEDS ORDERED: ASPIRIN 81 MG PO STA (14:03)
[2021-08-31] MEDS: SODIUM CHLORIDE 0.9% 1,000 ML IV SCH (15:55)
--- NOTE | 2021-08-31 17:00 | HP ---
HISTORY AND PHYSICAL DATE OF SERVICE: 08/31/2021 CHIEF COMPLAINT: Numbness of the left side of the body. HISTORY OF PRESENT ILLNESS: This 60-year-old woman with a past medical history of multiple medical problems, including diabetes mellitus, hypertension, hyperlipidemia, old stroke, was complaining of numbness of the left side of the body. Left upper limb felt weak. The patient came to [facility]. CT scan showed subacute CVA of the right parietal occipital region and encephalomalacia of the posterior right frontal lobe area also. The patient's NIH was only 1. Stroke code was not called. Neurology was consulted. The patient was admitted for further evaluation and treatment. There is no history of any fever, rigor or chills at this time. PAST MEDICAL HISTORY: History of strokes, diabetes mellitus, hypertension, hyperlipidemia. HOME MEDICATIONS: Reviewed. They include Zestril, Synthroid, Xalatan. See list. Doses are reviewed. ALLERGIES: ALLERGIES INCLUDE CEPHALEXIN. FAMILY HISTORY: Diabetes mellitus. SOCIAL HISTORY: History of smoking. REVIEW OF SYSTEMS: Fourteen-point review of systems negative except as mentioned earlier. PHYSICAL EXAMINATION: Pulse is 84, blood pressure 102/58, respiration 18. HEENT: Conjunctivae normal. NECK: No jugular venous distention. CARDIOVASCULAR: S1, S2 muffled. RESPIRATION: Breath sounds diminished at the bases. A few scattered rhonchi and crackles. ABDOMEN: Soft, nontender. LEGS: No edema. No swelling. NERVOUS SYSTEM: Diffusely weak, especially left upper limb, and lower limbs are weak also. Gait is ataxic. SKIN: No ulcer, rash, bleeding. JOINTS: No active deforming arthropathy. LABS: MCV 103.6. Other labs are noted. ASSESSMENT: 1. Acute right parieto-occipital stroke. 2. History of stroke previously. 3. Gait dysfunction. 4. Diabetes mellitus, type 2. 5. Hypertension. 6. Hyperlipidemia. RECOMMENDATIONS AND DISCUSSION: In this 60-year-old woman who presented with multiple complex medical issues, at this time I recommend to continue current medications, continue with antiplatelet agents. neurology consultation. Neurovascular workup. Neuro checks. Resume the home medications. DVT prophylaxis. Incentive spirometry. Prognosis extremely guarded because of the multiple complex medical issues. Will obtain a PT/OT evaluation also. See orders for further details. MMODL / IJN: [id number] /
[2021-08-31] MEDS: INSULIN ASPART (NovoLOG) 100 UNIT/ML VIAL SQ SCH ×2 (17:31→20:26)
[2021-08-31] MEDS: ATORVASTATIN 80 MG TAB PO SCH (18:02)
[2021-08-31] MEDS: GABAPENTIN 300 MG CAP PO SCH ×2 (18:02→20:26)
[2021-08-31] MEDS: LEVOTHYROXINE 100 MCG TAB PO SCH (18:02)
[2021-08-31] MEDS: CLOPIDOGREL 75 MG TAB PO SCH (18:04)
[2021-08-31 20:02] LABS: Glucose,Whole Blood 329 mg/dL (75-99)
[2021-08-31] MEDS: HEPARIN SODIUM,PORCINE/PF 5,000 UNIT/0.5 ML SYRINGE SQ SCH (20:26)
[2021-08-31] MEDS: BRIMONIDINE TARTRATE 0.2% DROPS 5 ML BTL BOTH EYES SCH (20:27)
[2021-08-31] MEDS: LATANOPROST 0.005% OPHTH DROPS 2.5 ML BTL BOTH EYES SCH (20:27)
[2021-08-31] MEDS ORDERED: FUROSEMIDE 20 MG TAB PO SCH (21:00)
[2021-08-31 21:51] LABS: Glucose,Whole Blood 242 mg/dL (75-99)
[2021-08-31] MEDS: ACETAMINOPHEN TAB 325 MG TAB PO PRN (23:15)
--- NOTE | 2021-08-31 23:49 | P.CNNES ---
History of Present Illness Consult date: 08/31/21 Requesting physician: Mesfin Underwood Reason for Consult: CVA History of Present Illness: Patient is a 60-year-old left-handed female who was brought by ambulance to hospital this morning at 11:01 a.m. for evaluation of headache and left arm weakness. Patient states that she went to her doctor's office yesterday for a regular visit for fatigue. She had some blood workup done and also was given a vitamin B12 shot because of fatigue. She also has a UTI. She came back home at around 12 noon. Shortly after she notices that her left arm became "lazy", couldn't feel anything with her left hand. Later she notices that she could not check her blood sugar using her left hand. 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 She states her right side is fine. Denies any problems with the legs. She does stagger a lot, but has been going on for last 1-2 years not new. Patient states that along with left arm weakness, she also noticed a pounding headache which started the same time yesterday at noon, lasted all day yesterday. She took 2 tablets of Tylenol at around noon, but as his symptoms persisted, she has to take 2 more Tylenols at 9 PM. Patient got scared and did not seek medical attention hoping that it will go away. She felt that she will be alright if she sleeps. This morning her symptoms persisted therefore she called the life alert and was brought to the hospital. Her blood pressure at the scene was 178/80, pulse rate 92, respiration 18. Saturation 99%. According to the EMS flow sheet patient started having numbness in her left arm the day before. She was seen by her primary physician the day before and was given a B12 shot in her hip. Patient is concerned when the arm numbness started a few hours later. Patient's vitals on arrival blood pressure was 172/86, pulse rate 85 temperature 98.8. Blood test shows normal CBC with elevated MCV 103.6. PT/PTT is normal, Chem-7 is normal. Her blood glucose is running around 329. Troponin is negative. Patient's last hemoglobin A1c 9.4 on 06/07/2021. Her LDL was 67 on 10/12/2019. Patient's previous SELINA was +1220 with homogenous pattern on 05/02/2019. Patient underwent computed tomography scan of the head which revealed acute/subacute CVA of the right parietal occipital region. Similar encephalomalacia of the posterior right frontal lobe from prior injury. On my review, there is evidence of possible edema of the right occipital lobe. CTA of head and neck showed no evidence of dissection of the cervical internal carotid arteries or vertebral arteries or any evidence of significant stenosis at the carotid bifurcation. No evidence of high-grade stenosis or intracranial aneurysm. EKG shows sinus rhythm. Chest x-ray showed no acute cardiopulmonary disease. Patient has smoked half to 1 pack per day since she was age 15. She denies any alcohol, any drug use. She has diabetes since she was age 4. She has hypertension. She does take baby aspirin 81 mg every day. She claims she has hyperlipidemia, thyroid problem, hypertension and glaucoma. She is legally blin d in the left eye. 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 Her vision has been stable for the last 1 year, therefore the shots have not been given. Review of Systems Patient does feel very tired. Patient had a bad headache yesterday, but now today it is gone. Denies any chest pain, abdominal pain, nausea vomiting diarrhea. All other 14 points of review of systems reviewed, noncontributory except as mentioned in HPI. 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, neuropathy Last Myocardial Infarction Date:: 1994 History of Any Multi-Drug Resistant Organisms: None Reported Past Surgical History: Appendectomy, Section, Tonsillectomy Additional Past Surgical History / Comment(s): breast biopsy, cataract Past Anesthesia/Blood Transfusion Reactions: No Reported Reaction Past Psychological History: No Psychological Hx Reported Smoking Status: Current every day smoker, Heavy tobacco smoker Past Alcohol Use History: None Reported Past Drug Use History: None Reported - Past Family History Father Family Medical History: Diabetes Mellitus Medications and Allergies Home Medications Medication Instructions Recorded Confirmed Type Furosemide [Lasix] 40 mg PO DAILY 07/27/14 08/31/21 History Gabapentin 600 mg PO TID 07/27/14 08/31/21 History Latanoprost Ophth [Xalatan 0.005%] 1 drop BOTH EYES HS 07/27/14 08/31/21 History Atorvastatin [Lipitor] 80 mg PO DAILY 08/19/20 08/31/21 History Brimonidine Tartrate [Alphagan P 1 drops BOTH EYES BID 08/19/20 08/31/21 History 0.2% Ophth Soln] Insulin Aspart [NovoLOG Flexpen] See Protocol SQ AC-TID 08/19/20 08/31/21 History Furosemide [Lasix] 20 mg PO HS 08/31/21 08/31/21 History Levothyroxine Sodium [Synthroid] 100 mcg PO DAILY 08/31/21 08/31/21 History calcitrioL [Calcitriol] 0.25 mcg PO Q7D 08/31/21 08/31/21 History lisinopriL [Zestril] 10 mg PO DAILY 08/31/21 08/31/21 History Allergies Allergy/AdvReac Type Severity Reaction Status Date / Time cephalexin monohydrate Allergy Vomiting Verified 08/31/21 14:07 [From Keflex] prochlorperazine edisylate AdvReac SOB Verified 08/31/21 14:07 [From Compazine] prochlorperazine maleate AdvReac SOB Verified 08/31/21 14:07 [From Compazine] Physical Examination - Vital Signs Vital Signs: Vital Signs Temp Pulse Pulse Resp BP BP Pulse Ox 08/31/21 16:12 98.0 F 84 18 102/58 100 08/31/21 15:53 98.0 F 78 18 150/87 97 08/31/21 15:31 86 18 08/31/21 15:00 81 18 155/78 97 08/31/21 14:00 79 18 134/59 99 08/31/21 13:00 78 18 143/68 99 08/31/21 12:30 73 18 143/76 96 08/31/21 11:47 84 18 157/70 100 08/31/21 11:02 98.8 F 85 18 172/86 99 Intake and Output 08/31/21 08/31/21 08/31/21 06:59 14:59 22:59 Other: Weight 80.739 kg 80.739 kg Patient is a middle aged female, appears slightly older than her stated age. Patient is alert awake oriented to time place and person. Speech and language functions are normal. Patient can name and repeat very well and has full comprehension. No aphasia or dysarthria. Attention, concentration and fund of knowledge is adequate. On cranial examination, her left pupil as obesity and she is completely blind in the left eye. Her right pupil is 3 mm, minimally reactive. Her visual mart were very difficult to assess, because of her pre-existing retinopathy. Sometimes deficits were noted, but other times not. Patient has proptosis of the left eye, and baseline exotropia to the left with her left eye. Her extraocular muscles are intact besides the above, with no nystagmus. Patient has very minimal left facial droop. Her tongue protrudes to the midline. Palatal elevation and sensation normal, hearing and shoulder shrug normal, fac ial sensation normal. Shoulder shrug normal. On muscle strength testing, there is no pronator drift and the strength (right/left) deltoid 5/5, biceps 5/5, industrial sociologist 5/5, interossei 5/5-. Her strength is normal in the legs distally and proximally. Patient appears to have spastic left hand, with decreased finger tapping on the left hand Deep tendon reflexes are(right/left) biceps 1+/2, brachioradialis 1+/2, knee 2/2, ankles 0/0, plantar is up on the right, down on left. Sensory to touch is equal with no neglect on double simultaneous stimulation. Cerebellar function showed no ataxia for [id number] testing. No dysdiadochokinesia. Tone and bulk of muscles normal. She has decreased finger tapping and dexterity of the left hand which is the dominant hand. Gait not checked. On general examination, there is no carotid bruit or murmur, S1-S2 audible. Abdomen is soft nontender. Chest is clear. Patient has moderate peripheral edema. She has evidence of old ulcers from diabetes involving her bolden region. She has some clubbing of the fingers. Results - Laboratory Findings CBC and BMP: 08/31/21 11:54 08/31/21 11:54 Abnormal Lab Findings: Abnormal Labs 08/31/21 08/31/21 08/31/21 11:54 11:54 19:52 MCV 103.6 H BUN 20 H POC Glucose (mg/dL) 329 H Magnesium 2.4 H 08/31/21 21:50 MCV BUN POC Glucose (mg/dL) 242 H Magnesium Assessment and Plan Assessment: * Possible sub-acute ischemic stroke right occipital region, possibly embolic. Rule out cardiac source. Differential also includes vasogenic edema, rule out mass lesion. 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 Plan: * MRI of the brain with and without contrast to rule out CVA versus mass lesion with vasogenic edema. * 2-D echo, rule out embolic source. * CTA of head and neck showed no evidence of dissection of the cervical internal carotid arteries or vertebral arteries or any evidence of significant stenosis at the carotid bifurcation. No evidence of high-grade stenosis or intracranial aneurysm. * Fasting a.m. lipid panel, hemoglobin A1c. * Patient has macrocytosis. Patient has received B12 injection yesterday, therefore it will be normal. We will still check B12, folate, MMA. * Telemetric monitoring, rule out atrial fibrillation. * Patient has been on aspirin 81 mg daily, therefore we will add Plavix 75 mg daily. After 21 days, may stop aspirin and continue Plavix indefinitely. * PT OT. * Blood pressure well controlled. * Recommend complete tobacco cessation. * Neurology will follow. Thank you for the consult.
[2021-09-01] MEDS: INSULIN ASPART (NovoLOG) 100 UNIT/ML VIAL SQ SCH ×4 (06:30→20:20)
[2021-09-01] MEDS: PANTOPRAZOLE 40 MG TABLET PO SCH (06:31)
[2021-09-01] MEDS: LEVOTHYROXINE 100 MCG TAB PO SCH (06:31)
[2021-09-01 06:37] LABS: Glucose,Whole Blood 84 mg/dL (75-99)
[2021-09-01] MEDS: ASPIRIN 81 MG PO SCH (08:47)
[2021-09-01] MEDS: FUROSEMIDE 40 MG TAB PO SCH (08:47)
[2021-09-01] MEDS: CLOPIDOGREL 75 MG TAB PO SCH (08:47)
[2021-09-01] MEDS: GABAPENTIN 300 MG CAP PO SCH ×3 (08:47→20:21)
[2021-09-01] MEDS: ATORVASTATIN 80 MG TAB PO SCH (08:47)
[2021-09-01] MEDS: HEPARIN SODIUM,PORCINE/PF 5,000 UNIT/0.5 ML SYRINGE SQ SCH ×2 (08:47→20:20)
[2021-09-01] MEDS: BRIMONIDINE TARTRATE 0.2% DROPS 5 ML BTL BOTH EYES SCH ×2 (08:51→20:21)
[2021-09-01] MEDS ORDERED: ASPIRIN 325 MG TAB PO SCH (09:00)
[2021-09-01 09:56] LABS: Basophils % (A) 1 %; Eosinophils # (A) 0.1 k/uL (0-0.7); Eosinophils % (A) 2 %; HGB 12.1 gm/dL (11.4-16.0); Lymphocytes # (A) 1.1 k/uL (1.0-4.8); Lymphocytes % (A) 19 %; MCH 34.5 pg (25.0-35.0); MCHC 32.8 g/dL (31.0-37.0); MCV 105.4 fL (80.0-100.0); Macrocytosis Moderate; Mean Platelet Volume 7.8; Monocytes # (A) 0.3 k/uL (0-1.0); Monocytes % (A) 5 %; Neutrophils # (A) 4.1 k/uL (1.3-7.7); Neutrophils % (A) 71 %; Platelet Count 288 k/uL (150-450); RBC 3.51 m/uL (3.80-5.40); RDW 15.3 % (11.5-15.5); WBC 5.8 k/uL (3.8-10.6)
[2021-09-01 10:13] LABS: African American GFR (CKD) 48 (>60 ml/min/1.73 sqM); Anion Gap 8 mmol/L; Blood Urea Nitrogen 28 mg/dL (7-17); Calcium 8.4 mg/dL (8.4-10.2); Carbon Dioxide 24 mmol/L (22-30); Chloride 98 mmol/L (98-107); Glucose 125 mg/dL (74-99); Non-African American GFR(CKD) 41 (>60 ml/min/1.73 sqM); Sodium 130 mmol/L (137-145)
[2021-09-01 11:43] LABS: Glucose,Whole Blood 156 mg/dL (75-99)
[2021-09-01] MEDS: SODIUM CHLORIDE 0.9% 1,000 ML IV SCH ×2 (11:49→13:35)
[2021-09-01 16:32] LABS: Chol/HDL Ratio 3.39 Ratio; LDL Cholesterol,Calculated 63.9 mg/dL (0.0-131.0); VLDL Calculation 19.28 mg/dL (5.00-40.00)
[2021-09-01 16:55] LABS: Glucose,Whole Blood 390 mg/dL (75-99)
--- NOTE | 2021-09-01 17:07 | PN ---
PROGRESS NOTE DATE OF SERVICE: 09/01/2021 This 60-year-old woman who had a past history of stroke was admitted again with acute stroke involving the right parietal region. Patient has significant weakness and ataxia of the left side of the body. The patient is being closely monitored. Neurology evaluation is in progress. Past medical history reviewed. REVIEW OF SYSTEMS: Fourteen-point review of systems negative except as mentioned earlier. CURRENT MEDICATIONS: Reviewed. They include Tylenol, aspirin. Doses and other medications are reviewed. PHYSICAL EXAMINATION: Pulse 69, blood pressure ntd, respiration 18. CHEST: Clear to auscultation. CARDIOVASCULAR: S1, S2 muffled. ABDOMEN: Soft, nontender. NERVOUS SYSTEM: Significant weakness and ataxia of the left side present. LABS: Reviewed. ASSESSMENT: 1. Acute right parieto-occipital stroke. 2. History of stroke previously. 3. Gait dysfunction. 4. Diabetes mellitus, type 2. 5. Hypertension. 6. Hyperlipidemia. RECOMMENDATIONS AND DISCUSSION: In this 60-year-old woman who presented with multiple complex medical issues, I would recommend continuing the current medications. Continue the antiplatelet agents. Neuro checks. I would also recommend PT/OT evaluation. Patient is concerned about functional ability. I would also recommend IV fluids for elevated creatinine. Monitor blood sugars closely. Avoid nephrotoxic medications. Guarded prognosis. Further recommendations to follow. The patient might require ECF rehab as well. LAKSHMIL / ILEANAN: [id number] / MTDD
[2021-09-01 19:56] LABS: Glucose,Whole Blood 347 mg/dL (75-99)
[2021-09-01] MEDS: LATANOPROST 0.005% OPHTH DROPS 2.5 ML BTL BOTH EYES SCH (20:21)
[2021-09-01] MEDS: ACETAMINOPHEN TAB 325 MG TAB PO PRN (21:15)
--- NOTE | 2021-09-02 00:05 | P.PN ---
Subjective Progress Note Date: 09/01/21 Patient was seen for a follow-up. Patient's sister was also present today. No new complaints. Continues to have left arm weakness. Objective - Vital Signs Vital signs: Vital Signs Temp 97.8 F 09/01/21 11:55 Pulse 69 09/01/21 11:55 Resp 18 09/01/21 11:55 BP 94/45 09/01/21 11:55 Pulse Ox 99 09/01/21 11:55 Intake & Output 08/31/21 09/01/21 09/01/21 18:59 06:59 18:59 Intake Total 970 Balance 970 Weight 80.739 kg Intake: Oral 970 Other: Voiding Method Toilet Toilet # Voids 2 # Bowel Movements 0 - Exam Examination continues to show left arm weakness. Rest of the examination is normal. Patient's finger tapping is decreased on the left. Patient has ataxia of the left upper extremity for [id number] testing. - Labs CBC & Chem 7: 09/01/21 09:22 09/01/21 09:22 Labs: Abnormal Lab Results - Last 24 Hours (Table) 08/31/21 08/31/21 09/01/21 Range/Units 19:52 21:50 09:22 RBC (3.80-5.40) m/uL MCV (80.0-100.0) fL Sodium 130 L (137-145) mmol/L BUN 28 H (7-17) mg/dL Creatinine 1.38 H (0.52-1.04) mg/dL Glucose 125 H (74-99) mg/dL POC Glucose (mg/dL) 329 H 242 H (75-99) mg/dL 09/01/21 09/01/21 Range/Units 09:22 11:40 RBC 3.51 L (3.80-5.40) m/uL MCV 105.4 H (80.0-100.0) fL Sodium (137-145) mmol/L BUN (7-17) mg/dL Creatinine (0.52-1.04) mg/dL Glucose (74-99) mg/dL POC Glucose (mg/dL) 156 H (75-99) mg/dL Assessment and Plan Assessment: * Possible sub-acute ischemic stroke right occipital region, possibly embolic. Rule out cardiac source. Differential also includes vasogenic edema, rule out mass lesion. 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 Plan: * Await MRI of the brain with and without contrast to rule out CVA versus mass lesion with vasogenic edema. * Await 2-D echo, rule out embolic source. * CTA of head and neck showed no evidence of dissection of the cervical internal carotid arteries or vertebral arteries or any evidence of significant stenosis at the carotid bifurcation. No evidence of high-grade stenosis or intracranial aneurysm. * Fasting a.m. lipid panel with cholesterol 118, LDL 63, HDL 34 and triglycerides 96. Patient on Lipitor 80 mg. We will decrease dose to 40 mg. * Hemoglobin A1c 9.2. Recommend optimize diabetes controlled to target A1c <7.0 * Patient has macrocytosis. Patient has received B12 injection yesterday, therefore it will be normal. B12 1762, folate 7.6. We will start folate replacement. MMA pending. * Telemetric monitoring, rule out atrial fibrillation. * Patient has been on aspirin 81 mg daily, therefore we will add Plavix 75 mg daily. After 21 days, may stop aspirin and continue Plavix indefinitely. * PT OT. * Blood pressure well controlled. * Recommend complete tobacco cessation. * Dr. Yrn Tate Will resume neurology service from the morning.
[2021-09-02] MEDS: SODIUM CHLORIDE 0.9% 1,000 ML IV SCH (03:21)
[2021-09-02 06:07] LABS: Glucose,Whole Blood 217 mg/dL (75-99)
[2021-09-02] MEDS: LEVOTHYROXINE 100 MCG TAB PO SCH (06:12)
[2021-09-02] MEDS: PANTOPRAZOLE 40 MG TABLET PO SCH (06:12)
[2021-09-02] MEDS: ACETAMINOPHEN TAB 325 MG TAB PO PRN (06:12)
[2021-09-02] MEDS: INSULIN ASPART (NovoLOG) 100 UNIT/ML VIAL SQ SCH ×4 (06:13→21:07)
[2021-09-02 08:45] LABS: Basophils % (A) 1 %; Eosinophils # (A) 0.1 k/uL (0-0.7); Eosinophils % (A) 2 %; HCT 37.4 % (34.0-46.0); HGB 12.1 gm/dL (11.4-16.0); Lymphocytes % (A) 15 %; MCH 34.5 pg (25.0-35.0); MCHC 32.2 g/dL (31.0-37.0); MCV 106.9 fL (80.0-100.0); Macrocytosis Moderate; Mean Platelet Volume 7.6; Monocytes # (A) 0.4 k/uL (0-1.0); Monocytes % (A) 6 %; Neutrophils % (A) 75 %; Platelet Count 262 k/uL (150-450); RDW 15.1 % (11.5-15.5); WBC 6.6 k/uL (3.8-10.6)
[2021-09-02 09:04] LABS: Albumin 2.9 g/dL (3.5-5.0); Calcium 8.2 mg/dL (8.4-10.2); Total Bilirubin 0.7 mg/dL (0.2-1.3); Total Protein 5.3 g/dL (6.3-8.2)
[2021-09-02] MEDS: CLOPIDOGREL 75 MG TAB PO SCH (09:38)
[2021-09-02] MEDS: HEPARIN SODIUM,PORCINE/PF 5,000 UNIT/0.5 ML SYRINGE SQ SCH ×2 (09:38→21:07)
[2021-09-02] MEDS: GABAPENTIN 300 MG CAP PO SCH ×3 (09:38→21:06)
[2021-09-02] MEDS: FOLIC ACID 1 MG TAB PO SCH (09:39)
[2021-09-02] MEDS: BRIMONIDINE TARTRATE 0.2% DROPS 5 ML BTL BOTH EYES SCH ×2 (09:39→21:07)
[2021-09-02] MEDS: ASPIRIN 81 MG PO SCH (09:39)
[2021-09-02] MEDS: FUROSEMIDE 40 MG TAB PO SCH (09:39)
[2021-09-02] MEDS: CYANOCOBALAMIN 500 MCG TAB PO SCH (09:39)
--- NOTE | 2021-09-02 11:17 | P.PN ---
Subjective Progress Note Date: 09/02/21 I am seeing the patient for the first time during this admission for neurological management. Please refer to Dr. Wellington's notes for further details. She states she has left hand numbness but otherwise denies any other neurological issues. She states she is legally blind on left eye which is old. Objective - Vital Signs Vital signs: Vital Signs Temp 97.0 F L 09/02/21 08:00 Pulse 74 09/02/21 08:00 Resp 18 09/02/21 08:00 BP 146/72 09/02/21 08:00 Pulse Ox 98 09/02/21 08:00 Intake & Output 09/01/21 09/02/21 09/02/21 18:59 06:59 18:59 Intake Total 118 240 240 Balance 118 240 240 Intake: Oral 118 240 240 Other: Voiding Method Toilet Toilet # Voids 1 1 # Bowel Movements 0 1 - Exam GENERAL: The patient is lying in bed and is not in acute distress. NEUROLOGICAL: Higher mental function: The patient is awake, alert, oriented to self, place and time. Patient is following commands. No aphasia and no neglect. Cranial nerves: Visual mart is hard to assess right side since kept on looking around but appears normal while left is legally blind (old). Facial sensation is normal to touch throughout. The facial strength is normal throughout. Tongue is midline and moved [id number] without any difficulty. No dysarthria is noted. Motor: The strength is 5 over 5 throughout. Normal tone and bulk. Sensation: Sensation is hard to assess because of cooperation. - Labs CBC & Chem 7: 09/02/21 08:40 09/02/21 08:23 Labs: Abnormal Lab Results - Last 24 Hours (Table) 09/01/21 09/01/21 09/01/21 Range/Units 09:22 09:22 09:22 RBC (3.80-5.40) m/uL MCV (80.0-100.0) fL Sodium (137-145) mmol/L BUN (7-17) mg/dL Creatinine (0.52-1.04) mg/dL Glucose (74-99) mg/dL POC Glucose (mg/dL) (75-99) mg/dL Hemoglobin A1c 9.2 H (0.0-6.0) % Calcium (8.4-10.2) mg/dL Total Protein (6.3-8.2) g/dL Albumin (3.5-5.0) g/dL HDL Cholesterol 34.80 L (40.00-60.00) mg/dL Vitamin B12 1762.0 H (200.0-944.0) pg/mL 09/01/21 09/01/21 09/01/21 Range/Units 11:40 16:54 19:54 RBC (3.80-5.40) m/uL MCV (80.0-100.0) fL Sodium (137-145) mmol/L BUN (7-17) mg/dL Creatinine (0.52-1.04) mg/dL Glucose (74-99) mg/dL POC Glucose (mg/dL) 156 H 390 H 347 H (75-99) mg/dL Hemoglobin A1c (0.0-6.0) % Calcium (8.4-10.2) mg/dL Total Protein (6.3-8.2) g/dL Albumin (3.5-5.0) g/dL HDL Cholesterol (40.00-60.00) mg/dL Vitamin B12 (200.0-944.0) pg/mL 09/02/21 09/02/21 09/02/21 Range/Units 06:05 08:23 08:40 RBC 3.50 L (3.80-5.40) m/uL MCV 106.9 H (80.0-100.0) fL Sodium 128 L (137-145) mmol/L BUN 40 H (7-17) mg/dL Creatinine 1.48 H (0.52-1.04) mg/dL Glucose 301 H (74-99) mg/dL POC Glucose (mg/dL) 217 H (75-99) mg/dL Hemoglobin A1c (0.0-6.0) % Calcium 8.2 L (8.4-10.2) mg/dL Total Protein 5.3 L (6.3-8.2) g/dL Albumin 2.9 L (3.5-5.0) g/dL HDL Cholesterol (40.00-60.00) mg/dL Vitamin B12 (200.0-944.0) pg/mL Assessment and Plan Assessment: * Possible sub-acute ischemic stroke right occipital region, possibly embolic. She complains of left hand numbness. Rule out cardiac source. Differential also includes vasogenic edema, rule out mass lesion. 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 Plan: * Await MRI of the brain with and without contrast to rule out CVA versus mass lesion with vasogenic edema. * Await 2-D echo, rule out embolic source. * CTA of head and neck showed no evidence of dissection of the cervical internal carotid arteries or vertebral arteries or any evidence of significant stenosis at the carotid bifurcation. No evidence of high-grade stenosis or intracr anial aneurysm. * Fasting a.m. lipid panel with cholesterol 118, LDL 63, HDL 34 and triglycerides 96. Patient on Lipitor 80 mg. We will decrease dose to 40 mg. * Hemoglobin A1c 9.2. Recommend optimize diabetes controlled to target A1c <7.0 * Patient has macrocytosis. Patient has received B12 injection yesterday, therefore it will be normal. B12 1762, folate 7.6. We will start folate replacement. MMA pending. * Telemetric monitoring, rule out atrial fibrillation. * Per Dr. Wellington: Patient has been on aspirin 81 mg daily, therefore we will add Plavix 75 mg daily. After 21 days, may stop aspirin and continue Plavix indefinitely. * PT OT. * Blood pressure well controlled. * Recommend complete tobacco cessation. The plan is discussed with the patient. Yrn Tate M.D. Neuro-Hospitalist Time with Patient: Less than 30
--- NOTE | 2021-09-02 11:51 | ECHOF ---
Referral Reason:Acute cva MEASUREMENTS -------- HEIGHT: 154.9 cm WEIGHT: 80.7 kg BP: 100/48 IVSd: 1.2 cm (0.6 - 1.1) LVIDd: 3.3 cm (3.9 - 5.3) LVPWd: 1.4 cm (0.6 - 1.1) IVSs: 1.5 cm LVIDs: 1.4 cm LVPWs: 1.7 cm Ao Diam: 2.3 cm (2.0 - 3.7) AV Cusp: 1.5 cm (1.5 - 2.6) LA Diam: 2.8 cm (2.7 - 3.8) MV EXCURSION: 15.640 mm (> 18.000) MV EF SLOPE: 60 mm/s (70 - 150) EPSS: 0.2 cm MV E Zachariah: 1.08 m/s MV DecT: 185 ms MV A Zachariah: 0.98 m/s MV E/A Ratio: 1.10 RAP: 5.00 mmHg RVSP: 27.27 mmHg FINDINGS -------- Sinus rhythm. This was a technically adequate study. The left ventricular size is normal. There is mild concentric left ventricular hypertrophy. Overa ll left ventricular systolic function is normal with, an EF between 55 - 60 %. The right ventricle is normal in size. The left atrial size is normal. The right atrium was not well visualized. Interatrial and interventricular septum intact. There is no evidence of aortic regurgitation. There is no evidence of aortic stenosis. No mitral regurgitation. Mild tricuspid regurgitation present. There is no evidence of pulmonary hypertension. The right v entricular systolic pressure, as measured by Doppler, is 27.27mmHg. There is no pulmonic regurgitation present. The aortic root size is normal. Normal inferior vena cava with normal inspiratory collapse consistent with estimated right atrial pre ssure of 5 mmHg. There is a small, generalized pericardial effusion present. CONCLUSIONS -------- 1. The left ventricular size is normal. 2. There is mild concentric left ventricular hypertrophy. 3. Overall left ventricular systolic function is normal with, an EF between 55 - 60 %. 4. Mild tricuspid regurgitation present. 5. There is a small, generalized pericardial effusion present. METAL SORTER: Natalia Turner [facility]
[2021-09-02 12:27] LABS: Glucose,Whole Blood 421 mg/dL (75-99)
[2021-09-02 14:23] VITALS: BMI 33.6
--- NOTE | 2021-09-02 15:18 | PN ---
PROGRESS NOTE DATE OF SERVICE: 09/02/2021 This 60-year-old woman was admitted with acute right parieto-occipital stroke, is still complaining of some weakness and incoordination on the left side. No chest pain. No palpitation. No fever. Neurology evaluation in progress. A 2D echo with Doppler showed ejection fraction 50-60 percent. No chest pain. No palpitation. PHYSICAL EXAMINATION: Pulse is 74, blood pressure 140/70, respiration 18. Eyes: Conjunctivae normal. Dysconjugation of the eyes present. NECK is no JVD. CARDIOVASCULAR: S1, S2 muffled. RESPIRATION: No rhonchi. ABDOMEN: Soft. NERVOUS SYSTEM: Minimal incoordination, weakness of the left side. LABS: Reviewed. ASSESSMENT: 1. Acute right parieto-occipital stroke. 2. History of stroke previously. 3. Gait dysfunction. 4. Diabetes mellitus, type 2. 5. Hypertension. 6. Hyperlipidemia. RECOMMENDATIONS AND DISCUSSION: I recommend to continue current management and symptomatic treatment. Continue with monitoring the creatinine closely. Continue with IV fluids and we will repeat the labs tomorrow. PT/OT evaluation. Possible ECF for inpatient rehab with Dr. Holbrook. Guarded prognosis. Further recommendations to follow. MMODL / IJN: [id number] /
[2021-09-02 16:55] LABS: Glucose,Whole Blood 490 mg/dL (75-99)
[2021-09-02] MEDS ORDERED: INSULIN ASPART (NovoLOG) 100 UNIT/ML VIAL SQ ONE (17:21)
[2021-09-02 19:30] LABS: Glucose,Whole Blood 420 mg/dL (75-99)
[2021-09-02 20:01] LABS: Glucose,Whole Blood 347 mg/dL (75-99)
[2021-09-02] MEDS ORDERED: INSULIN DETEMIR (LEVEMIR) 100 UNIT/ML SYR SQ SCH (21:00)
[2021-09-02] MEDS: ATORVASTATIN 40 MG TAB PO SCH (21:06)
[2021-09-02] MEDS: LATANOPROST 0.005% OPHTH DROPS 2.5 ML BTL BOTH EYES SCH (21:08)
[2021-09-02 23:14] LABS: Glucose,Whole Blood 55 mg/dL (75-99)
[2021-09-02 23:34] LABS: Glucose,Whole Blood 56 mg/dL (75-99)
[2021-09-02 23:54] LABS: Glucose,Whole Blood 88 mg/dL (75-99)
[2021-09-03 05:05] LABS: Glucose,Whole Blood 284 mg/dL (75-99)
[2021-09-03] MEDS: LEVOTHYROXINE 100 MCG TAB PO SCH (05:25)
[2021-09-03] MEDS: INSULIN ASPART (NovoLOG) 100 UNIT/ML VIAL SQ SCH ×4 (05:25→20:55)
[2021-09-03] MEDS: PANTOPRAZOLE 40 MG TABLET PO SCH (05:25)
--- NOTE | 2021-09-03 05:42 | P.CONS ---
History of Present Illness - Chief Complaint Gait disturbance, left hemiparesthesias - History of Present Illness I had the opportunity to see patient for inpatient rehab consultation with regard to gait disturbance. Patient admitted to [facility] August 31 with acute onset left arm weakness and numbness which persists. Seen by neurology, Dr. Wellington diagnosed possible right occipital subacute infarct. Laboratories chest x-ray negative. Head CT with acute/subacute right parietal infarct. Angiogram CT demonstrates of the head right encephalomalacia and of the neck negative. PT, OT, JUDICIAL CLERK all prescribed. Previous functional history as elicited from patient: 60-year-old left-handed white female single lives in basement apartment alone. On disability related to diabetes including complications of blindness, patient independent with cooking, laundry, tub bath and gait without device. Uses bus for transportation. PCP Dr. Cam. Denies tobacco has occasional drink. Review of Systems Review of systems: ENT: Denies sneezes or discharge. Eyes: Denies discharge or photophobia. Cardiac: Denies chest pain or palpitation. Pulmonary: Denies cough or shortness of breath. Breast: Denies discharge or lumps. Gastrointestinal: Denies nausea, emesis, constipation, diarrhea. Genitourinary: Denies discharge or frequency. Musculoskeletal: Denies muscle or bone aches. Neurologic: Left hand weakness and numbness was quite disconcerting to patient due to the fact that she is left-handed and requires insulin shots 4 times a day. Endocrine: Denies shakes or sweats. Oncology: Denies cancers. Dermatologic: Denies rash, itching, pruritus. ALLERGY/immunology: Denies sneezes, rashes. 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, neuropathy Last Myocardial Infarction Date:: 1994 History of Any Multi-Drug Resistant Organisms: None Reported Past Surgical History: Appendectomy, Section, Tonsillectomy Additional Past Surgical History / Comment(s): breast biopsy, cataract Past Anesthesia/Blood Transfusion Reactions: No Reported Reaction Past Psychological History: No Psychological Hx Reported Smoking Status: Current every day smoker, Heavy tobacco smoker Past Alcohol Use History: None Reported Past Drug Use History: None Reported - Past Family History Father Family Medical History: Diabetes Mellitus Medications and Allergies Home Medications Medication Instructions Recorded Confirmed Type Furosemide [Lasix] 40 mg PO DAILY 07/27/14 08/31/21 History Gabapentin 600 mg PO TID 07/27/14 08/31/21 History Latanoprost Ophth [Xalatan 0.005%] 1 drop BOTH EYES HS 07/27/14 08/31/21 History Atorvastatin [Lipitor] 80 mg PO DAILY 08/19/20 08/31/21 History Brimonidine Tartrate [Alphagan P 1 drops BOTH EYES BID 08/19/20 08/31/21 History 0.2% Ophth Soln] Insulin Aspart [NovoLOG Flexpen] See Protocol SQ AC-TID 08/19/20 08/31/21 History Furosemide [Lasix] 20 mg PO HS 08/31/21 08/31/21 History Levothyroxine Sodium [Synthroid] 100 mcg PO DAILY 08/31/21 08/31/21 History calcitrioL [Calcitriol] 0.25 mcg PO Q7D 08/31/21 08/31/21 History lisinopriL [Zestril] 10 mg PO DAILY 08/31/21 08/31/21 History Allergies Allergy/AdvReac Type Severity Reaction Status Date / Time cephalexin monohydrate Allergy Vomiting Verified 08/31/21 14:07 [From Keflex] prochlorperazine edisylate AdvReac SOB Verified 08/31/21 14:07 [From Compazine] prochlorperazine maleate AdvReac SOB Verified 08/31/21 14:07 [From Compazine] Physical Exam Vitals: Vital Signs Temp Pulse Resp BP Pulse Ox 09/03/21 04:00 97.6 F 89 18 112/54 96 09/03/21 00:00 84 18 124/57 96 09/02/21 20:51 97.9 F 85 18 127/62 96 09/02/21 16:00 83 18 139/63 99 09/02/21 15:45 95 09/02/21 13:25 81 18 09/02/21 12:00 81 18 165/74 99 09/02/21 08:00 97.0 F L 74 18 146/72 98 Intake and Output 09/02/21 09/02/21 09/03/21 14:59 22:59 06:59 Intake Total 600 360 Balance 600 360 Intake: Oral 600 360 Other: Voiding Method Toilet Toilet # Voids 1 2 1 # Bowel Movements 1 1 Weight 80.739 kg Skin: Good color, texture, turgor. General: Medium build and comfortable appearance. Head: Normocephalic, atraumatic. Eyes: Symmetric. Pupils equal round. Ears: Symmetric. Hearing within normal limits. Mouth: Clear. Neck: Supple. Carotid without bruit. Cardiac: Regular rate and rhythm. Lungs: Clear anteriorly and posteriorly. Abdomen: Soft active nontender. Extremities: Normal tone. Neurological: Mental status: Alert, cooperative, pleasant. Cranial nerves: Symmetric facial tone and trapezius. Motor: Normal strength and isolation right side. Left arm and leg with elements of isolation. Left hand weakness and apraxia. Sensation: Intact throughout. DTRs: Symmetric and equal throughout. Mobility: Sits and stands without assistance or verbal cueing or loss of balance. Results CBC & Chem 7: 09/02/21 08:40 09/02/21 08:23 Labs: Abnormal Lab Results - Last 24 Hours (Table) 09/02/21 09/02/21 09/02/21 Range/Units 06:05 08:23 08:40 RBC 3.50 L (3.80-5.40) m/uL MCV 106.9 H (80.0-100.0) fL Sodium 128 L (137-145) mmol/L BUN 40 H (7-17) mg/dL Creatinine 1.48 H (0.52-1.04) mg/dL Glucose 301 H (74-99) mg/dL POC Glucose (mg/dL) 217 H (75-99) mg/dL Calcium 8.2 L (8.4-10.2) mg/dL Total Protein 5.3 L (6.3-8.2) g/dL Albumin 2.9 L (3.5-5.0) g/dL 09/02/21 09/02/21 09/02/21 Range/Units 12:16 16:42 19:28 RBC (3.80-5.40) m/uL MCV (80.0-100.0) fL Sodium (137-145) mmol/L BUN (7-17) mg/dL Creatinine (0.52-1.04) mg/dL Glucose (74-99) mg/dL POC Glucose (mg/dL) 421 H 490 H 420 H (75-99) mg/dL Calcium (8.4-10.2) mg/dL Total Protein (6.3-8.2) g/dL Albumin (3.5-5.0) g/dL 09/02/21 09/02/21 09/02/21 Range/Units 20:00 23:12 23:33 RBC (3.80-5.40) m/uL MCV (80.0-100.0) fL Sodium (137-145) mmol/L BUN (7-17) mg/dL Creatinine (0.52-1.04) mg/dL Glucose (74-99) mg/dL POC Glucose (mg/dL) 347 H 55 L 56 L (75-99) mg/dL Calcium (8.4-10.2) mg/dL Total Protein (6.3-8.2) g/dL Albumin (3.5-5.0) g/dL 09/03/21 Range/Units 05:04 RBC (3.80-5.40) m/uL MCV (80.0-100.0) fL Sodium (137-145) mmol/L BUN (7-17) mg/dL Creatinine (0.52-1.04) mg/dL Glucose (74-99) mg/dL POC Glucose (mg/dL) 284 H (75-99) mg/dL Calcium (8.4-10.2) mg/dL Total Protein (6.3-8.2) g/dL Albumin (3.5-5.0) g/dL Assessment and Plan (1) CVA (cerebral vascular accident) Current Visit: Yes Status: Acute Code(s): I63.9 - CEREBRAL INFARCTION, UNSPECIFIED SNOMED Code(s): 724067080 (2) Diabetes mellitus with skin ulcer Current Visit: No Status: Acute Code(s): E11.622 - TYPE 2 DIABETES MELLITUS WITH OTHER SKIN ULCER; L98.499 - NON-PRESSURE CHRONIC ULCER OF SKIN OF SITES W UNSP SEVERITY SNOMED Code(s): 13274956 (3) Left arm weakness Current Visit: No Status: Acute Code(s): R29.898 - OTH SYMPTOMS AND SIGNS INVOLVING THE MUSCULOSKELETAL SYSTEM SNOMED Code(s): 138017158 Plan: Comments and plan: At this time patient appears to gait disturbance related to stroke result in left hemiparesthesias. Have discussed anticipated need of inpatient rehab and she seems agreeable. She is quite troubled by the fact that she doesn't feel that she is any support at home and requires good left hand function. She is artery beginning to consider substituting with right hand for certain functions. Will require PT, OT, JUDICIAL CLERK notes for further consideration and insurance authorization.
[2021-09-03] MEDS: ACETAMINOPHEN TAB 325 MG TAB PO PRN (06:32)
[2021-09-03 06:46] LABS: Appearance,Urine Cloudy (Clear); Bacteria,Urine Rare /hpf; Bilirubin,Urine Negative (Negative); Blood,Urine Negative (Negative); Color,Urine Light Yellow; Glucose,Urine (UA) 3+ (Negative); Ketones,Urine Negative (Negative); Leukocyte Esterase,Urine Large (Negative); Mucus,Urine Rare /hpf; Nitrite,Urine Negative (Negative); PH, Urine 6.5 (5.0-8.0); Protein,Urine Negative (Negative); RBC,Urine 3 /hpf (0-5); Specific Gravity,Urine 1.012 (1.001-1.035); Squamous Epithelial Cell,Urine 2 /hpf (0-4); Urobilinogen,Urine <2.0 mg/dL (<2.0); WBC,Urine 163 /hpf (0-5)
[2021-09-03] MEDS: CLOPIDOGREL 75 MG TAB PO SCH (09:01)
[2021-09-03] MEDS: ASPIRIN 81 MG PO SCH (09:01)
[2021-09-03] MEDS: HEPARIN SODIUM,PORCINE/PF 5,000 UNIT/0.5 ML SYRINGE SQ SCH ×2 (09:01→20:55)
[2021-09-03] MEDS: BRIMONIDINE TARTRATE 0.2% DROPS 5 ML BTL BOTH EYES SCH ×2 (09:01→23:48)
[2021-09-03] MEDS: GABAPENTIN 300 MG CAP PO SCH ×3 (09:01→20:55)
[2021-09-03] MEDS: CYANOCOBALAMIN 500 MCG TAB PO SCH (09:01)
[2021-09-03] MEDS: FUROSEMIDE 40 MG TAB PO SCH (09:01)
[2021-09-03] MEDS: FOLIC ACID 1 MG TAB PO SCH (09:01)
--- NOTE | 2021-09-03 09:21 | MR ---
EXAMINATION TYPE: MR brain wo/w con DATE OF EXAM: 09/03/2021 COMPARISON: CT brain 08/31/2021, brain MRI dated 05/02/2019 HISTORY: Lt arm numbness and weakness. TECHNIQUE: Multiplanar, multisequence images of the brain and brainstem is performed without and with IV contras t, utilizing 7.5 mL intravenous Gadavist . FINDINGS: Diffusion weighted images demonstrate restricted diffusion at the inferior right occipital lobe similar to that seen on CT as well as right frontal and parietal lobe along the cortex. Correspo nding hyperintensity present on inversion recovery and T2-weighted sequences. Additional white matter signal changes including confluent periventricular and pericallosal hyperintensity on inversion gila very T2-weighted sequences similar to prior exam. There is no extra-axial fluid collection. The romi tricular system and cisternal spaces are normal in size and appearance. The brain volume is age appr opriate, cortical atrophy similar to prior exams. Midline structures demonstrate normal morphology. The craniocervical junction appears within normal limits. Post contrast images demonstrate no abnormal enhancement. Possible origin of the poste rior cerebral artery on the right. The dural venous sinuses appear patent. The visualized sinuses are clear and the globes are intact. IMPRESSION: Findings consistent with subacute infarcts, consider embolic phenomenon. There is cortica l atrophy.
[2021-09-03 09:39] LABS: Basophils % (A) 1 %; Eosinophils # (A) 0.2 k/uL (0-0.7); Eosinophils % (A) 2 %; HGB 12.2 gm/dL (11.4-16.0); Lymphocytes % (A) 15 %; MCH 34.1 pg (25.0-35.0); MCHC 32.1 g/dL (31.0-37.0); Macrocytosis Moderate; Mean Platelet Volume 7.9; Monocytes # (A) 0.5 k/uL (0-1.0); Monocytes % (A) 7 %; Neutrophils # (A) 4.9 k/uL (1.3-7.7); Neutrophils % (A) 73 %; Platelet Count 254 k/uL (150-450); RBC 3.58 m/uL (3.80-5.40); RDW 14.3 % (11.5-15.5); WBC 6.8 k/uL (3.8-10.6)
[2021-09-03 09:49] LABS: ALT 17 U/L (4-34); AST 26 U/L (14-36); African American GFR (CKD) 58 (>60 ml/min/1.73 sqM); Alkaline Phosphatase 87 U/L (38-126); Anion Gap 4 mmol/L; Blood Urea Nitrogen 39 mg/dL (7-17); Calcium 8.5 mg/dL (8.4-10.2); Carbon Dioxide 23 mmol/L (22-30); Chloride 101 mmol/L (98-107); Glucose 326 mg/dL (74-99); Non-African American GFR(CKD) 50 (>60 ml/min/1.73 sqM); Potassium 5.3 mmol/L (3.5-5.1); Sodium 128 mmol/L (137-145); Total Bilirubin 0.6 mg/dL (0.2-1.3); Total Protein 5.4 g/dL (6.3-8.2)
[2021-09-03 11:18] LABS: Glucose,Whole Blood 430 mg/dL (75-99)
--- NOTE | 2021-09-03 11:21 | P.PN ---
Subjective Progress Note Date: 09/03/21 The patient is seen at bedside and continues to have weakness and numbness over the left hand. Objective - Vital Signs Vital signs: Vital Signs Temp 97.2 F L 09/03/21 08:00 Pulse 83 09/03/21 08:00 Resp 18 09/03/21 08:00 BP 125/60 09/03/21 08:00 Pulse Ox 98 09/03/21 08:00 Intake & Output 09/02/21 09/03/21 09/03/21 18:59 06:59 18:59 Intake Total 600 360 270 Output Total 300 Balance 600 60 270 Weight 80.739 kg Intake: IV 10 Invasive Line 1 10 Oral 600 360 260 Output: Urine 300 Other: Voiding Method Toilet Toilet # Voids 2 1 # Bowel Movements 1 - Exam GENERAL: The patient is lying in bed and is not in acute distress. NEUROLOGICAL: Higher mental function: The patient is awake, alert, oriented to self, place and time. Patient is following commands. No aphasia and no neglect. Cranial nerves: Visual mart is hard to assess right side since kept on looking around but appears normal while left is legally blind (old). Facial sensation is normal to touch throughout. The facial strength is normal throughout. Tongue is midline and moved [id number] without any difficulty. No dysarthria is noted. Motor: The strength is left hand spring coiler is 4+. Otherwise has good strength thr oughout. Normal tone and bulk. Sensation: Sensation is hard to assess because of cooperation. WORK-UP: MRI of the brain with and without is reported as finding consistent with subacute infarcts, consider embolic phenomena. There is cortical atrophy. The infarcts are located in the right occipital as well as right frontal parietal region. * 2-D echo: Was reported as left ventricle size is normal. Mild concentric left ventricular hypertrophy. Ejection fraction between 55 and 60%. Left atrial size is normal. * CTA of head and neck showed no evidence of dissection of the cervical internal carotid arteries or vertebral arteries or any evidence of significant stenosis at the carotid bifurcation. No evidence of high-grade stenosis or intracranial aneurysm. * Fasting a.m. lipid panel with cholesterol 118, LDL 63, HDL 34 and triglycerides 96. * Hemoglobin A1c 9.2. - Labs CBC & Chem 7: 09/03/21 09:13 09/03/21 09:13 Labs: Abnormal Lab Results - Last 24 Hours (Table) 09/02/21 09/02/21 09/02/21 Range/Units 12:16 16:42 19:28 RBC (3.80-5.40) m/uL MCV (80.0-100.0) fL Sodium (137-145) mmol/L Potassium (3.5-5.1) mmol/L BUN (7-17) mg/dL Creatinine (0.52-1.04) mg/dL Glucose (74-99) mg/dL POC Glucose (mg/dL) 421 H 490 H 420 H (75-99) mg/dL Total Protein (6.3-8.2) g/dL Albumin (3.5-5.0) g/dL Urine Appearance (Clear) Urine Glucose (UA) (Negative) Ur Leukocyte Esterase (Negative) Urine WBC (0-5) /hpf Urine Bacteria (None) /hpf Urine Mucus (None) /hpf 09/02/21 09/02/21 09/02/21 Range/Units 20:00 23:12 23:33 RBC (3.80-5.40) m/uL MCV (80.0-100.0) fL Sodium (137-145) mmol/L Potassium (3.5-5.1) mmol/L BUN (7-17) mg/dL Creatinine (0.52-1.04) mg/dL Glucose (74-99) mg/dL POC Glucose (mg/dL) 347 H 55 L 56 L (75-99) mg/dL Total Protein (6.3-8.2) g/dL Albumin (3.5-5.0) g/dL Urine Appearance (Clear) Urine Glucose (UA) (Negative) Ur Leukocyte Esterase (Negative) Urine WBC (0-5) /hpf Urine Bacteria (None) /hpf Urine Mucus (None) /hpf 09/03/21 09/03/21 09/03/21 Range/Units 05:04 06:07 09:13 RBC 3.58 L (3.80-5.40) m/uL MCV 106.0 H (80.0-100.0) fL Sodium (137-145) mmol/L Potassium (3.5-5.1) mmol/L BUN (7-17) mg/dL Creatinine (0.52-1.04) mg/dL Glucose (74-99) mg/dL POC Glucose (mg/dL) 284 H (75-99) mg/dL Total Protein (6.3-8.2) g/dL Albumin (3.5-5.0) g/dL Urine Appearance Cloudy H (Clear) Urine Glucose (UA) 3+ H (Negative) Ur Leukocyte Esterase Large H (Negative) Urine WBC 163 H (0-5) /hpf Urine Bacteria Rare H (None) /hpf Urine Mucus Rare H (None) /hpf 09/03/21 Range/Units 09:13 RBC (3.80-5.40) m/uL MCV (80.0-100.0) fL Sodium 128 L (137-145) mmol/L Potassium 5.3 H (3.5-5.1) mmol/L BUN 39 H (7-17) mg/dL Creatinine 1.17 H (0.52-1.04) mg/dL Glucose 326 H (74-99) mg/dL POC Glucose (mg/dL) (75-99) mg/dL Total Protein 5.4 L (6.3-8.2) g/dL Albumin 3.0 L (3.5-5.0) g/dL Urine Appearance (Clear) Urine Glucose (UA) (Negative) Ur Leukocyte Esterase (Negative) Urine WBC (0-5) /hpf Urine Bacteria (None) /hpf Urine Mucus (None) /hpf Assessment and Plan Assessment: * Sub-acute ischemic stroke right occipital/parietal/frontal region region, possibly embolic. She complains of left weakness hand numbness. No IV tpa since outside window and the risk outweigh the benefit. 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 Plan: * MRI of the brain with and without is reported as finding consistent with subacute infarcts, consider embolic phenomena. There is cortical atrophy. The infarcts are located in the right occipital as well as right frontal parie michael region. * Patient has been on aspirin 81 mg daily, therefore we will add Plavix 75 mg daily. After 21 days, may stop aspirin and continue Plavix indefinitely. * Continue Lipitor 40mg qhs. * Recommend Cardiology consult for NATTY and possible consideration of event monitor or loop recorder. * Hemoglobin A1c 9.2. Recommend optimize diabetes controlled to target A1c <7.0 * Patient has macrocytosis. Patient has received B12 injection yesterday, therefore it will be normal. B12 1762, folate 7.6. We will start folate replacement. Pending MMA * Telemetric monitoring, rule out atrial fibrillation. * PT OT. * Recommend complete tobacco cessation. * Will defer the rest of medical management to the primary team. * For DVT prophylaxis: On subq heparin 5000U q12 hour. * Upon discharge, recommend patient to follow-up with neurologist as outpatient within 1-2 weeks. The plan is discussed with the patient, primary team and her nurse. Yrn Tate M.D. Neuro-Hospitalist Time with Patient: Less than 30
--- NOTE | 2021-09-03 14:08 | P.PN ---
Subjective Progress Note Date: 09/03/21 This is a 60-year-old female who was recently admitted with acute right parieto- occipital stroke continues to have some left-sided weakness and incoordination with left hand and is being closely monitored. Neurology following and evaluation is in progress and recommending possible NATTY and cardiology has been consulted and pending. Patient's blood sugars continue to be uncontrolled and hyperglycemic and added low-dose long-acting at night and we'll transition to daytime as blood sugar dropped significantly. Recommend continue with Accu- Cheks before meals and at bedtime and sliding scale as well. Patient denies chest pain, shortness of breath, or palpitations. Patient is afebrile. Patient tolerating diet with no reports of nausea or vomiting noted. Review of systems: Constitutional: No reports of fatigue, fever, or chills Cardiovascular: No reports of chest pain or palpitations Respiratory: No reports of shortness of breath or cough GI: no reports of nausea, no reports of of vomiting, no reports of diarrhea : No reports of dysuria or retention Neurovascular: reports of generalized weakness, reports left-sided hand numbness, slightly improving Active Medications Acetaminophen (Acetaminophen Tab 325 Mg Tab) 650 mg PO Q6HR PRN PRN Reason: Fever and/ or Pain Last Admin: 09/03/21 06:32 Dose: 650 mg Documented by: Aspirin (Aspirin 81 Mg) 81 mg PO DAILY [facility] Last Admin: 09/03/21 09:01 Dose: 81 mg Documented by: Atorvastatin Calcium (Atorvastatin 40 Mg Tab) 40 mg PO HS [facility] Last Admin: 09/02/21 21:06 Dose: 40 mg Documented by: Brimonidine Tartrate (Brimonidine Tartrate 0.2% Drops 5 Ml Btl) 1 drops BOTH EYES BID [facility] Last Admin: 09/03/21 09:01 Dose: 1 drops Documented by: Calcitriol (Calcitriol 0.25 Mcg Cap) 0.25 mcg PO Q7D [facility] Last Admin: 09/01/21 08:47 Dose: 0.25 mcg Documented by: Clopidogrel Bisulfate (Clopidogrel 75 Mg Tab) 75 mg PO DAILY [facility] Last Admin: 09/03/21 09:01 Dose: 75 mg Documented by: Cyanocobalamin (Cyanocobalamin 500 Mcg Tab) 1,000 mcg PO DAILY [facility] Last Admin: 09/03/21 09:01 Dose: 1,000 mcg Documented by: Folic Acid (Folic Acid 1 Mg Tab) 1 mg PO DAILY [facility] Last Admin: 09/03/21 09:01 Dose: 1 mg Documented by: Furosemide (Furosemide 40 Mg Tab) 40 mg PO DAILY [facility] Last Admin: 09/03/21 09:01 Dose: 40 mg Documented by: Gabapentin (Gabapentin 300 Mg Cap) 600 mg PO TID [facility] Last Admin: 09/03/21 09:01 Dose: 600 mg Documented by: Heparin Sodium (Porcine) (Heparin Sodium,Porcine/Pf 5,000 Unit/0.5 Ml Syringe) 5,000 unit SQ Q12HR [facility] Last Admin: 09/03/21 09:01 Dose: 5,000 unit Documented by: Sodium Chloride (Saline 0.9%) 1,000 mls @ 50 mls/hr IV .Q20H [facility] Last Admin: 09/02/21 03:21 Dose: 50 mls/hr Documented by: Insulin Aspart (Insulin Aspart (Novolog) 100 Unit/Ml Vial) 0 unit SQ ACHS [facility]; Protocol Last Admin: 09/03/21 11:30 Dose: 8 unit Documented by: Insulin Detemir (Insulin Detemir (Levemir) 100 Unit/Ml Syr) 10 unit SQ HS [facility] Last Admin: 09/02/21 21:07 Dose: 10 unit Documented by: Latanoprost (Latanoprost 0.005% Ophth Drops 2.5 Ml Btl) 1 drops BOTH EYES [facility] Last Admin: 09/02/21 21:08 Dose: 1 drops Documented by: Levothyroxine Sodium (Levothyroxine 100 Mcg Tab) 100 mcg PO 0630 [facility] Last Admin: 09/03/21 05:25 Dose: 100 mcg Documented by: Pantoprazole Sodium (Pantoprazole 40 Mg Tablet) 40 mg PO AC-BRKFST [facility] Last Admin: 09/03/21 05:25 Dose: 40 mg Documented by: PHYSICAL EXAMINATION: GENERAL: The patient is alert and oriented x4, Well developed, well nourished. HEENT: Pupils are round and equally reacting to light. EOMI. no scleral icterus. No conjunctival pallor. Normocephalic, atraumatic. No pharyngeal erythema. No thyromegaly. CARDIOVASCULAR: S1 and S2 muffled PULMONARY: diminished breath sounds bilaterally with no wheezing or rhonchi noted. ABDOMEN: soft. Nontender on exam. obese. non-distended, normoactive bowel sounds. No palpable organomegaly. MUSCULOSKELETAL: No joint swelling or deformity. EXTREMITIES: No cyanosis, clubbing, or pedal edema. 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 Diffuse weakness of the left side SKIN: No rashes. Assessment: Acute right parieto-occipital stroke History of stroke previously Gait dysfunction next line diabetes mellitus type 2 uncontrolled with hyperglycemia Hypertension hyperlipidemia Hyponatremia GI prophylaxis DVT prophylaxis Plan: Recommend to continue with current medications and management. Neurology following the patient and recommending cardiology consultation for possible NATTY and cardiology has been consulted and pending. Patient was seen and evaluated by Dr. Holbrook for possible inpatient rehab at [facility] and patient initially was agreeable although on speaking with patient today patient is refusing any form of rehab and would like Homecare arranged for discharge. PT/OT therapy following. Patient had MRI of the brain done yesterday which shows findings consistent with subacute infarcts consider embolic phenomenon there is cortical atrophy in again cardiology was consulted for NATTY and currently pending at this time. Recommend continue with Accu-Cheks before meals and at bedtime and as needed and continue sliding scale and have transitioned long acting to daytime administration as opposed to nighttime as blood sugar dropped significantly when receiving it at at bedtime. Sodium a bit low but is stable at 128 and will repeat labs. Kidney function slowly trending down and is currently 1.17. We'll discontinue IV fluids. Due to multiple complex medical issues, prognosis is guarded. The impression and plan of care has been dictated by Dulce Munzi, nurse practitioner as directed. MD Julianna I have performed a history and examination and MDM of this patient, discussed the same with the dictator, and agree with the dictator's assessment and plan as written ,documented as a scribe. Based on total visit time, I have performed more than 50% of the visit. Any additional findings or plans will be noted. Objective - Vital Signs Vital signs: Vital Signs Temp 97.3 F L 09/03/21 11:30 Pulse 76 09/03/21 11:30 Resp 18 09/03/21 11:30 BP 128/73 09/03/21 11:30 Pulse Ox 98 09/03/21 11:30 Intake & Output 09/02/21 09/03/21 09/03/21 18:59 06:59 18:59 Intake Total 600 360 270 Output Total 300 Balance 600 60 270 Weight 80.739 kg Intake: IV 10 Invasive Line 1 10 Oral 600 360 260 Output: Urine 300 Other: Voiding Method Toilet Toilet # Voids 2 1 # Bowel Movements 1 - Labs CBC & Chem 7: 09/03/21 09:13 09/03/21 09:13 Labs: Abnormal Lab Results - Last 24 Hours (Table) 09/02/21 09/02/21 09/02/21 Range/Units 16:42 19:28 20:00 RBC (3.80-5.40) m/uL MCV (80.0-100.0) fL Sodium (137-145) mmol/L Potassium (3.5-5.1) mmol/L BUN (7-17) mg/dL Creatinine (0.52-1.04) mg/dL Glucose (74-99) mg/dL POC Glucose (mg/dL) 490 H 420 H 347 H (75-99) mg/dL Total Protein (6.3-8.2) g/dL Albumin (3.5-5.0) g/dL Urine Appearance (Clear) Urine Glucose (UA) (Negative) Ur Leukocyte Esterase (Negative) Urine WBC (0-5) /hpf Urine Bacteria (None) /hpf Urine Mucus (None) /hpf 09/02/21 09/02/21 09/03/21 Range/Units 23:12 23:33 05:04 RBC (3.80-5.40) m/uL MCV (80.0-100.0) fL Sodium (137-145) mmol/L Potassium (3.5-5.1) mmol/L BUN (7-17) mg/dL Creatinine (0.52-1.04) mg/dL Glucose (74-99) mg/dL POC Glucose (mg/dL) 55 L 56 L 284 H (75-99) mg/dL Total Protein (6.3-8.2) g/dL Albumin (3.5-5.0) g/dL Urine Appearance (Clear) Urine Glucose (UA) (Negative) Ur Leukocyte Esterase (Negative) Urine WBC (0-5) /hpf Urine Bacteria (None) /hpf Urine Mucus (None) /hpf 09/03/21 09/03/21 09/03/21 Range/Units 06:07 09:13 09:13 RBC 3.58 L (3.80-5.40) m/uL MCV 106.0 H (80.0-100.0) fL Sodium 128 L (137-145) mmol/L Potassium 5.3 H (3.5-5.1) mmol/L BUN 39 H (7-17) mg/dL Creatinine 1.17 H (0.52-1.04) mg/dL Glucose 326 H (74-99) mg/dL POC Glucose (mg/dL) (75-99) mg/dL Total Protein 5.4 L (6.3-8.2) g/dL Albumin 3.0 L (3.5-5.0) g/dL Urine Appearance Cloudy H (Clear) Urine Glucose (UA) 3+ H (Negative) Ur Leukocyte Esterase Large H (Negative) Urine WBC 163 H (0-5) /hpf Urine Bacteria Rare H (None) /hpf Urine Mucus Rare H (None) /hpf 09/03/21 Range/Units 11:16 RBC (3.80-5.40) m/uL MCV (80.0-100.0) fL Sodium (137-145) mmol/L Potassium (3.5-5.1) mmol/L BUN (7-17) mg/dL Creatinine (0.52-1.04) mg/dL Glucose (74-99) mg/dL POC Glucose (mg/dL) 430 H (75-99) mg/dL Total Protein (6.3-8.2) g/dL Albumin (3.5-5.0) g/dL Urine Appearance (Clear) Urine Glucose (UA) (Negative) Ur Leukocyte Esterase (Negative) Urine WBC (0-5) /hpf Urine Bacteria (None) /hpf Urine Mucus (None) /hpf
[2021-09-03] MEDS ORDERED: INSULIN DETEMIR (LEVEMIR) 100 UNIT/ML SYR SQ SCH (14:15)
[2021-09-03 16:22] LABS: Glucose,Whole Blood 382 mg/dL (75-99)
[2021-09-03 20:24] LABS: Glucose,Whole Blood 403 mg/dL (75-99)
[2021-09-03] MEDS: ATORVASTATIN 40 MG TAB PO SCH (20:55)
[2021-09-03] MEDS: LATANOPROST 0.005% OPHTH DROPS 2.5 ML BTL BOTH EYES SCH (23:48)
[2021-09-04 06:25] LABS: Glucose,Whole Blood 167 mg/dL (75-99)
[2021-09-04] MEDS: PANTOPRAZOLE 40 MG TABLET PO SCH (06:29)
[2021-09-04] MEDS: INSULIN ASPART (NovoLOG) 100 UNIT/ML VIAL SQ SCH ×4 (06:29→20:58)
[2021-09-04] MEDS: LEVOTHYROXINE 100 MCG TAB PO SCH (06:29)
[2021-09-04] MEDS ORDERED: INSULIN DETEMIR (LEVEMIR) 100 UNIT/ML SYR SQ SCH (07:00)
[2021-09-04] MEDS: FUROSEMIDE 40 MG TAB PO SCH (10:04)
[2021-09-04] MEDS: CYANOCOBALAMIN 500 MCG TAB PO SCH (10:04)
[2021-09-04] MEDS: FOLIC ACID 1 MG TAB PO SCH (10:04)
[2021-09-04] MEDS: CLOPIDOGREL 75 MG TAB PO SCH (10:04)
[2021-09-04] MEDS: GABAPENTIN 300 MG CAP PO SCH ×3 (10:05→20:58)
[2021-09-04] MEDS: HEPARIN SODIUM,PORCINE/PF 5,000 UNIT/0.5 ML SYRINGE SQ SCH ×2 (10:05→20:58)
[2021-09-04] MEDS: ASPIRIN 81 MG PO SCH (10:05)
[2021-09-04] MEDS: BRIMONIDINE TARTRATE 0.2% DROPS 5 ML BTL BOTH EYES SCH ×2 (10:06→20:59)
--- NOTE | 2021-09-04 11:01 | P.CRDCN ---
History of Present Illness Consult date: 09/04/21 History of present illness: HISTORY OF PRESENT ILLNESS: This is a 60-year-old female with a past medical history significant for coronary artery disease with previous angioplasty of RCA in 1994, hypertension, hyperlipidemia, diabetes, and previous CVA. Patient follows in the office with Dr. Woo. We have been asked to see the patient in consultation for CVA/NATTY. Patient examined at the bedside. patient states that she was recently at her do ctor's office and was evaluated for weakness. She states that she was given a B12 shot at that time. She states later on that day and the following day she began having a headache. She states she then began having left arm weakness. She reports some slurred speech for a couple minutes as well. She states her speech is back to baseline but continues to have weakness of her left arm. She denies any chest pain or pressure. Denies any shortness of breath. Denies any dizziness or lightheadedness. She denies any palpitations. * EKG reveals sinus mechanism with no signs of acute ischemia * Chest xray negative for acute process * Laboratory data: WBC 6.8. Hemoglobin 12.2. Platelet count 254. Sodium 128. Potassium 5.3. BUN 39. Creatinine 1.17. * Current home cardiac medications include lisinopril 10 mg daily, Lasix 20 mg at night and 40 mg in the morning, Lipitor 80 mg daily * echocardiogram completed revealing ejection fraction 55-60%, mild TR, and small generalized pericardial effusion * Patient underwent Lexiscan stress test in September 2018 which was negative for ischemia REVIEW OF SYSTEMS: At the time of my exam: CONSTITUTIONAL: Denies fever or chills. HEENT: Denies blurred vision, vision changes, or eye pain. Denies hemoptysis CARDIOVASCULAR: Denies chest pain. Denies orthopnea. Denies PND. Denies palpitations RESPIRATORY: Denies shortness of breath. GASTROINTESTINAL: Denies abdominal pain. Denies nausea or vomiting. HEMATOLOGIC: Denies bleeding disorders. GENITOURINARY: Denies any blood in urine. SKIN: Denies pruitis. Denies rash. PHYSICAL EXAM: VITAL SIGNS: Reviewed. GENERAL: Well-developed in no acute distress. HEENT: Head is normocephalic. Pupils are equal, round. Sclerae anicteric. Mucous membranes of the mouth are moist. Neck supple. No JVD or thyromegaly LUNGS: Respirations even and unlabored. Lungs essentially clear to auscultation bilaterally. HEART: Regular rate and rhythm. S1 and S2 heard. ABDOMEN: Soft. Nondistended. Nontender. EXTREMITIES: Left upper extremity weakness. No clubbing or cyanosis. Peripheral pulses intact. Trace bilateral lower extremity edema NEUROLOGIC: Awake and alert. Oriented x 3. ASSESSMENT: Subacute ischemic CVA Coronary artery disease with previous angioplasty of RCA Hypertension Hyperlipidemia History of CVA Diabetes PLAN: Continue current cardiac medications Continue telemetry monitoring to assess for any arrhythmias Neurology following Patient to undergo NATTY today with Dr. Woo Further recommendations pending patient course Nurse practitioner note has been reviewed by physician. Signing provider agrees with the documented findings, assessment, and plan of care. 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, neuropathy Last Myocardial Infarction Date:: 1994 History of Any Multi-Drug Resistant Organisms: None Reported Past Surgical History: Appendectomy, Section, Tonsillectomy Additional Past Surgical History / Comment(s): breast biopsy, cataract Past Anesthesia/Blood Transfusion Reactions: No Reported Reaction Past Psychological History: No Psychological Hx Reported Smoking Status: Current every day smoker, Heavy tobacco smoker Past Alcohol Use History: None Reported Past Drug Use History: None Reported - Past Family History Father Family Medical History: Diabetes Mellitus Medications and Allergies Home Medications Medication Instructions Recorded Confirmed Type Furosemide [Lasix] 40 mg PO DAILY 07/27/14 08/31/21 History Gabapentin 600 mg PO TID 07/27/14 08/31/21 History Latanoprost Ophth [Xalatan 0.005%] 1 drop BOTH EYES HS 07/27/14 08/31/21 History Atorvastatin [Lipitor] 80 mg PO DAILY 08/19/20 08/31/21 History Brimonidine Tartrate [Alphagan P 1 drops BOTH EYES BID 08/19/20 08/31/21 History 0.2% Ophth Soln] Insulin Aspart [NovoLOG Flexpen] See Protocol SQ AC-TID 08/19/20 08/31/21 History Furosemide [Lasix] 20 mg PO HS 08/31/21 08/31/21 History Levothyroxine Sodium [Synthroid] 100 mcg PO DAILY 08/31/21 08/31/21 History calcitrioL [Calcitriol] 0.25 mcg PO Q7D 08/31/21 08/31/21 History lisinopriL [Zestril] 10 mg PO DAILY 08/31/21 08/31/21 History Allergies Allergy/AdvReac Type Severity Reaction Status Date / Time cephalexin monohydrate Allergy Vomiting Verified 08/31/21 14:07 [From Keflex] prochlorperazine edisylate AdvReac SOB Verified 08/31/21 14:07 [From Compazine] prochlorperazine maleate AdvReac SOB Verified 08/31/21 14:07 [From Compazine] Physical Exam Vitals: Vital Signs Temp Pulse Resp BP Pulse Ox 09/04/21 04:00 98.3 F 74 18 99/55 93 L 09/04/21 00:00 98.0 F 84 18 132/60 95 09/03/21 20:00 97.6 F 92 18 181/71 94 L 09/03/21 16:00 97.2 F L 73 18 110/50 98 09/03/21 11:30 97.3 F L 76 18 128/73 98 Intake and Output 09/03/21 09/04/21 09/04/21 22:59 06:59 14:59 Intake Total 320 120 Balance 320 120 Intake: Oral 320 120 Other: # Voids 2 1 Results 09/03/21 09:13 09/03/21 09:13 Current Medications Generic Name Dose Route Start Last Admin Trade Name Freq PRN Reason Stop Dose Admin Acetaminophen 650 mg 08/31/21 22:18 09/03/21 06:32 Acetaminophen Tab 325 Mg Tab PO 650 mg Q6HR PRN Administration Fever and/ or Pain Aspirin 81 mg 09/01/21 09:00 09/04/21 10:05 Aspirin 81 Mg PO 81 mg DAILY JAMES Administration Atorvastatin Calcium 40 mg 09/02/21 21:00 09/03/21 20:55 Atorvastatin 40 Mg Tab PO 40 mg HS JAMES Administration Brimonidine Tartrate 1 drops 08/31/21 21:00 09/04/21 10:06 Brimonidine Tartrate 0.2% Drops 5 Ml Btl BOTH EYES 1 drops BID JAMES Administration Calcitriol 0.25 mcg 09/01/21 09:00 09/01/21 08:47 Calcitriol 0.25 Mcg Cap PO 0.25 mcg Q7D JAMES Administration Clopidogrel Bisulfate 75 mg 08/31/21 18:00 09/04/21 10:04 Clopidogrel 75 Mg Tab PO 75 mg DAILY JAMES Administration Cyanocobalamin 1,000 mcg 09/02/21 09:00 09/04/21 10:04 Cyanocobalamin 500 Mcg Tab PO 1,000 mcg DAILY JAMES Administration Folic Acid 1 mg 09/02/21 09:00 09/04/21 10:04 Folic Acid 1 Mg Tab PO 1 mg DAILY JAMES Administration Furosemide 40 mg 09/01/21 09:00 09/04/21 10:04 Furosemide 40 Mg Tab PO 40 mg DAILY JAMES Administration Gabapentin 600 mg 08/31/21 16:30 09/04/21 10:05 Gabapentin 300 Mg Cap PO 600 mg TID JAMES Administration Heparin Sodium (Porcine) 5,000 unit 08/31/21 21:00 09/04/21 10:05 Heparin Sodium,Porcine/Pf 5,000 Unit/0.5 Ml Syringe SQ 5,000 unit Q12HR JAMES Administration Insulin Aspart 0 unit 08/31/21 17:30 09/04/21 06:29 Insulin Aspart (Novolog) 100 Unit/Ml Vial SQ Not Given ACHS [facility] Protocol Insulin Detemir 10 unit 09/04/21 07:00 Insulin Detemir (Levemir) 100 Unit/Ml Syr SQ DAILY@0700 [facility] Latanoprost 1 drops 08/31/21 21:00 09/03/21 23:48 Latanoprost 0.005% Ophth Drops 2.5 Ml Btl BOTH EYES [address] [facility] Administration Levothyroxine Sodium 100 mcg 08/31/21 16:30 09/04/21 06:29 Levothyroxine 100 Mcg Tab PO [address] [facility] Administration Pantoprazole Sodium 40 mg 09/01/21 07:30 09/04/21 06:29 Pantoprazole 40 Mg Tablet PO 40 [address] AC-[address] [facility] Administration Intake and Output 09/03/21 09/04/21 09/04/21 22:59 06:59 14:59 Intake Total 320 120 Balance 320 120 Intake: Oral 320 120 Other: # Voids 2 1 09/03/21 09:13 09/03/21 09:13
[2021-09-04 11:15] LABS: Glucose,Whole Blood 352 mg/dL (75-99)
[2021-09-04] MEDS ORDERED: fentaNYL (PF) 50 MCG/ML 2 ML AMP ONE (11:39)
--- NOTE | 2021-09-04 11:40 | P.PN ---
Subjective Progress Note Date: 09/04/21 The patient is seen at bedside and continues to have weakness and numbness over the left hand. Objective - Vital Signs Vital signs: Vital Signs Temp 98.3 F 09/04/21 04:00 Pulse 74 09/04/21 04:00 Resp 18 09/04/21 04:00 BP 99/55 09/04/21 04:00 Pulse Ox 93 L 09/04/21 04:00 Intake & Output 09/03/21 09/04/21 09/04/21 18:59 06:59 18:59 Intake Total 460 440 Balance 460 440 Intake: IV 20 Invasive Line 1 20 Oral 440 440 Other: Voiding Method Toilet # Voids 2 1 - Exam GENERAL: The patient is lying in bed and is not in acute distress. NEUROLOGICAL: Higher mental function: The patient is awake, alert, oriented to self, place and time. Patient is following commands. No aphasia and no neglect. Cranial nerves: Visual mart is hard to assess right side since kept on looking around but appears normal while left is legally blind (old). Facial sensation is normal to touch throughout. The facial strength is normal throughout. Tongue is midline and moved [id number] without any difficulty. No dysarthria is noted. Motor: The strength is left upper extremity (mostly distally) and hand blue leather setter is 4+. Otherwise has good strength throughout. Normal tone and bulk. Sensation: Sensation is hard to assess because of cooperation. WORK-UP: MRI of the brain with and without is reported as finding consistent with subacute infarcts, consider embolic phenomena. There is cortical atrophy. The infarcts are located in the right occipital as well as right frontal parietal region. * 2-D echo: Was reported as left ventricle size is normal. Mild concentric left ventricular hypertrophy. Ejection fraction between 55 and 60%. Left atrial size is normal. * CTA of head and neck showed no evidence of dissection of the cervical internal carotid arteries or vertebral arteries or any evidence of significant stenosis at the carotid bifurcation. No evidence of high-grade stenosis or intracranial aneurysm. * Fasting a.m. lipid panel with cholesterol 118, LDL 63, HDL 34 and trigly cerides 96. * Hemoglobin A1c 9.2. - Labs CBC & Chem 7: 09/03/21 09:13 09/03/21 09:13 Labs: Abnormal Lab Results - Last 24 Hours (Table) 03/09/03/21 09/03/21 Range/Units 09:22 16:20 20:23 POC Glucose (mg/dL) 382 H 403 H (75-99) mg/dL Methylmalonic Acid 1.00 H (<0.40) umol/L 09/04/21 09/04/21 Range/Units 06:23 11:14 POC Glucose (mg/dL) 167 H 352 H (75-99) mg/dL Methylmalonic Acid (<0.40) umol/L Assessment and Plan Assessment: * Sub-acute ischemic stroke right occipital/parietal/frontal region region, possibly embolic. She complains of left upper extremity paresis hand numbness. No IV tpa since outside window and the risk outweigh the benefit. 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 Plan: * MRI of the brain with and without is reported as finding consistent with subacute infarcts, consider embolic phenomena. There is cortical atrophy. The infarcts are located in the right occipital as well as right frontal parietal region. * Patient has been on aspirin 81 mg daily, therefore added Plavix 75 mg daily. After 21 days, may stop aspirin and continue Plavix indefinitely. * Continue Lipitor 40mg qhs. * Cardiology consulted for NATTY and possible consideration of event monitor or loop recorder. * Hemoglobin A1c 9.2. Recommend optimize diabetes controlled to target A1c <7.0 * Patient has macrocytosis. Patient has received B12 injection yesterday, therefore it will be normal. B12 1762, folate 7.6. We will start folate replacement. Pending MMA * Telemetric monitoring, rule out atrial fibrillation. * PT OT. * Recommend complete tobacco cessation. * Will defer the rest of medical management to the primary team. * For DVT prophylaxis: On subq heparin 5000U q12 hour. * Upon discharge, recommend patient to follow-up with neurologist as outpatient within 1-2 weeks. The plan is discussed with the patient and her nurse. Yrn Tate M.D. Neuro-Hospitalist Time with Patient: Less than 30
[2021-09-04] MEDS ORDERED: SODIUM CHLORIDE 0.9% 500 ML 500 ML IV ONE (11:55)
[2021-09-04] MEDS ORDERED: BENZOCAINE SPRAY 1 CAN MUCOUS MEM ONE (12:00)
[2021-09-04] MEDS ORDERED: MIDAZOLAM 2 MG/2 ML VIAL IV ONE (12:00)
[2021-09-04] MEDS ORDERED: fentaNYL (PF) 50 MCG/ML 2 ML AMP IV ONE (12:00)
--- NOTE | 2021-09-04 13:54 | ECHOT ---
TRANSESOPHAGEAL ECHOCARDIOGRAM INDICATION: Recurrent CVA. PROCEDURE NOTE: After obtaining informed consent, transesophageal echocardiogram was performed in left lateral position using an Omniplane probe. Local and IV sedation were obtained using 2 mg of Versed, 25 mcg of fentanyl, and Xylocaine spray. The patient tolerated the procedure well without any obvious immediate complications. She received moderate conscious sedation and total sedation time was 10 minutes. Two-D, color Doppler and spectral analysis were performed. FINDINGS: 1. Aortic valve is a 3-leaflet valve. There is no evidence of aortic stenosis or regurgitation. 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 2. Mitral valve is anatomically normal. There is mild mitral regurgitation noted. 3. Tricuspid valve appears normal. 4. Left atrium is mildly enlarged. 5. Right atrium and right ventricle are seen within normal limits. 6. Left ventricle has normal size and systolic function. 7. Aortic root measures within normal limits. 8. There is no evidence of [id number] shunt by color-flow Doppler or [id number]-vs-[id number] shunt by agitated saline contrast study. 9. Left atrial appendage is free of thrombus. CONCLUSIONS: 1. Normal LV systolic function. 2. No evidence of intracardiac thrombus. 3. No evidence of intracardiac shunt. 4. 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 PLAN: I am going to obtain a cardiac MRI and if this confirms and defines the exact nature of the mass lesion noted on the aortic valve, will refer her to a cardiothoracic surgeon, as this could be the reason why she is having recurrent CVAs. MMODL / IJN: [id number] /
[2021-09-04 16:45] LABS: Glucose,Whole Blood 509 mg/dL (75-99)
[2021-09-04 16:45] LABS: Glucose,Whole Blood 489 mg/dL (75-99)
--- NOTE | 2021-09-04 17:26 | P.PN ---
Subjective Progress Note Date: 09/04/21 This is a 60-year-old female who was recently admitted with acute right parieto- occipital stroke continues to have some left-sided weakness and incoordination with left hand and is being closely monitored. Neurology following and evaluation is in progress and recommending possible NATTY and cardiology has been consulted and pending. Patient's blood sugars continue to be uncontrolled and hyperglycemic and added low-dose long-acting at night and we'll transition to daytime as blood sugar dropped significantly. Recommend continue with Accu- Cheks before meals and at bedtime and sliding scale as well. Patient denies chest pain, shortness of breath, or palpitations. Patient is afebrile. Patient tolerating diet with no reports of nausea or vomiting noted. 09/04/2021 Patient is seen in follow-up this morning and is being closely monitored. Neurology following as well and cardiology has been consulted for possible NATTY as MRI of the brain showed possible embolic source for the CVA and awaiting possible NATTY at this time. Patient will be NPO in the event of NATTY. Patient blood sugars continue to be uncontrolled and elevated. patient Will be continued on sliding scale and long acting. Patient reports to eating 100% of all meals. Patient with continued left upper extremity numbness and displays ataxia on exam. Patient denies chest pain or shortness of breath. Patient is afebrile. Review of systems: Constitutional: No reports of fatigue, fever, or chills Cardiovascular: No reports of chest pain or palpitations Respiratory: No reports of shortness of breath or cough GI: no reports of nausea, no reports of of vomiting, no reports of diarrhea : No reports of dysuria or retention Neurovascular: reports of generalized weakness, reports left-sided hand numbness, slightly improving Active Medications Acetaminophen (Acetaminophen Tab 325 Mg Tab) 650 mg PO Q6HR PRN PRN Reason: Fever and/ or Pain Last Admin: 09/03/21 06:32 Dose: 650 mg Documented by: Aspirin (Aspirin 81 Mg) 81 mg PO DAILY [facility] Last Admin: 09/03/21 09:01 Dose: 81 mg Documented by: Atorvastatin Calcium (Atorvastatin 40 Mg Tab) 40 mg PO HS [facility] Last Admin: 09/03/21 20:55 Dose: 40 mg Documented by: Brimonidine Tartrate (Brimonidine Tartrate 0.2% Drops 5 Ml Btl) 1 drops BOTH EYES BID [facility] Last Admin: 09/03/21 23:48 Dose: 1 drops Documented by: Calcitriol (Calcitriol 0.25 Mcg Cap) 0.25 mcg PO Q7D [facility] Last Admin: 09/01/21 08:47 Dose: 0.25 mcg Documented by: Clopidogrel Bisulfate (Clopidogrel 75 Mg Tab) 75 mg PO DAILY [facility] Last Admin: 09/03/21 09:01 Dose: 75 mg Documented by: Cyanocobalamin (Cyanocobalamin 500 Mcg Tab) 1,000 mcg PO DAILY [facility] Last Admin: 09/03/21 09:01 Dose: 1,000 mcg Documented by: Folic Acid (Folic Acid 1 Mg Tab) 1 mg PO DAILY [facility] Last Admin: 09/03/21 09:01 Dose: 1 mg Documented by: Furosemide (Furosemide 40 Mg Tab) 40 mg PO DAILY [facility] Last Admin: 09/03/21 09:01 Dose: 40 mg Documented by: Gabapentin (Gabapentin 300 Mg Cap) 600 mg PO TID [facility] Last Admin: 09/03/21 20:55 Dose: 600 mg Documented by: Heparin Sodium (Porcine) (Heparin Sodium,Porcine/Pf 5,000 Unit/0.5 Ml Syringe) 5,000 unit SQ Q12HR [facility] Last Admin: 09/03/21 20:55 Dose: 5,000 unit Documented by: Insulin Aspart (Insulin Aspart (Novolog) 100 Unit/Ml Vial) 0 unit SQ ACHS [facility]; Protocol Last Admin: 09/04/21 06:29 Dose: Not Given Documented by: Insulin Detemir (Insulin Detemir (Levemir) 100 Unit/Ml Syr) 10 unit SQ DAILY@0700 [facility] Latanoprost (Latanoprost 0.005% Ophth Drops 2.5 Ml Btl) 1 drops BOTH EYES HS [facility] Last Admin: 09/03/21 23:48 Dose: 1 drops Documented by: Levothyroxine Sodium (Levothyroxine 100 Mcg Tab) 100 mcg PO 0630 [facility] Last Admin: 09/04/21 06:29 Dose: 100 mcg Documented by: Pantoprazole Sodium (Pantoprazole 40 Mg Tablet) 40 mg PO AC-BRKFST [facility] Last Admin: 09/04/21 06:29 Dose: 40 mg Documented by: PHYSICAL EXAMINATION: GENERAL: The patient is alert and oriented x4, Well developed, well nourished. Obese HEENT: Pupils are round and equally reacting to light. EOMI. no scleral icterus. No conjunctival pallor. Normocephalic, atraumatic. No pharyngeal erythema. No thyromegaly. CARDIOVASCULAR: S1 and S2 muffled PULMONARY: diminished breath sounds bilaterally with no wheezing or rhonchi noted. ABDOMEN: soft. Nontender on exam. obese. non-distended, normoactive bowel sounds. No palpable organomegaly. MUSCULOSKELETAL: No joint swelling or deformity. EXTREMITIES: No cyanosis, clubbing, or pedal edema. Left upper extremity weakness 4/5 lead producer strength NEUROLOGICAL: Gross neurological examination did not reveal any focal deficits. ataxia noted. Diffuse weakness of the left side SKIN: No rashes. Assessment: Acute right parieto-occipital stroke History of stroke previously Gait dysfunction diabetes mellitus type 2 uncontrolled with hyperglycemia Hypertension hyperlipidemia Hyponatremia GI prophylaxis DVT prophylaxis Plan: Recommend to continue with current medications and management. Neurology following the patient and cardiology consulted for possible NATTY and patient will be NPO. Patient had MRI of the brain done yesterday which shows findings consistent with subacute infarcts consider embolic phenomenon there is cortical atrophy Recommend continue with Accu-Cheks before meals and at bedtime and as needed and continue sliding scale and have transitioned long acting to daytime administration as opposed to nighttime as blood sugar dropped significantly when receiving it at at bedtime. Blood sugars consistently in the 3-400s today and will make long acting BID. Will await NATTY report. Due to multiple complex medical issues, prognosis is guarded. The impression and plan of care has been dictated by Dulce Muniz, nurse practitioner as directed. MD Julianna I have performed a history and examination and MDM of this patient, discussed the same with the dictator, and agree with the dictator's assessment and plan as written ,documented as a scribe. Based on total visit time, I have performed more than 50% of the visit. Any additional findings or plans will be noted. Objective - Vital Signs Vital signs: Vital Signs Temp 98.3 F 09/04/21 04:00 Pulse 74 09/04/21 04:00 Resp 18 09/04/21 04:00 BP 99/55 09/04/21 04:00 Pulse Ox 93 L 09/04/21 04:00 Intake & Output 09/03/21 09/04/21 09/04/21 18:59 06:59 18:59 Intake Total 460 440 Balance 460 440 Intake: IV 20 Invasive Line 1 20 Oral 440 440 Other: Voiding Method Toilet # Voids 2 1 - Labs CBC & Chem 7: 09/03/21 09:13 09/03/21 09:13 Labs: Abnormal Lab Results - Last 24 Hours (Table) 09/01/21 09/03/21 09/03/21 Range/Units 09:22 09:13 09:13 RBC 3.58 L (3.80-5.40) m/uL MCV 106.0 H (80.0-100.0) fL Sodium 128 L (137-145) mmol/L Potassium 5.3 H (3.5-5.1) mmol/L BUN 39 H (7-17) mg/dL Creatinine 1.17 H (0.52-1.04) mg/dL Glucose 326 H (74-99) mg/dL POC Glucose (mg/dL) (75-99) mg/dL Total Protein 5.4 L (6.3-8.2) g/dL Albumin 3.0 L (3.5-5.0) g/dL Methylmalonic Acid 1.00 H (<0.40) umol/L 09/03/21 09/03/21 09/03/21 Range/Units 11:16 16:20 20:23 RBC (3.80-5.40) m/uL MCV (80.0-100.0) fL Sodium (137-145) mmol/L Potassium (3.5-5.1) mmol/L BUN (7-17) mg/dL Creatinine (0.52-1.04) mg/dL Glucose (74-99) mg/dL POC Glucose (mg/dL) 430 H 382 H 403 H (75-99) mg/dL Total Protein (6.3-8.2) g/dL Albumin (3.5-5.0) g/dL Methylmalonic Acid (<0.40) umol/L 09/04/21 Range/Units 06:23 RBC (3.80-5.40) m/uL MCV (80.0-100.0) fL Sodium (137-145) mmol/L Potassium (3.5-5.1) mmol/L BUN (7-17) mg/dL Creatinine (0.52-1.04) mg/dL Glucose (74-99) mg/dL POC Glucose (mg/dL) 167 H (75-99) mg/dL Total Protein (6.3-8.2) g/dL Albumin (3.5-5.0) g/dL Methylmalonic Acid (<0.40) umol/L
[2021-09-04] MEDS: ACETAMINOPHEN TAB 325 MG TAB PO PRN (19:45)
[2021-09-04 20:06] LABS: Glucose,Whole Blood 453 mg/dL (75-99)
[2021-09-04] MEDS: ATORVASTATIN 40 MG TAB PO SCH (20:58)
[2021-09-04] MEDS: INSULIN DETEMIR (LEVEMIR) 100 UNIT/ML SYR SQ SCH (20:58)
[2021-09-04] MEDS: LATANOPROST 0.005% OPHTH DROPS 2.5 ML BTL BOTH EYES SCH (20:59)
[2021-09-05 01:01] LABS: Glucose,Whole Blood 48 mg/dL (75-99)
[2021-09-05 01:19] LABS: Glucose,Whole Blood 90 mg/dL (75-99)
[2021-09-05 06:05] LABS: Glucose,Whole Blood 300 mg/dL (75-99)
[2021-09-05] MEDS: PANTOPRAZOLE 40 MG TABLET PO SCH (06:22)
[2021-09-05] MEDS: LEVOTHYROXINE 100 MCG TAB PO SCH (06:22)
[2021-09-05] MEDS: INSULIN ASPART (NovoLOG) 100 UNIT/ML VIAL SQ SCH ×4 (06:22→20:46)
[2021-09-05] MEDS: INSULIN DETEMIR (LEVEMIR) 100 UNIT/ML SYR SQ SCH ×2 (06:23→20:46)
[2021-09-05] MEDS: FUROSEMIDE 40 MG TAB PO SCH (08:09)
[2021-09-05] MEDS: CYANOCOBALAMIN 500 MCG TAB PO SCH (08:09)
[2021-09-05] MEDS: CLOPIDOGREL 75 MG TAB PO SCH (08:09)
[2021-09-05] MEDS: HEPARIN SODIUM,PORCINE/PF 5,000 UNIT/0.5 ML SYRINGE SQ SCH ×2 (08:09→20:46)
[2021-09-05] MEDS: ASPIRIN 81 MG PO SCH (08:09)
[2021-09-05] MEDS: FOLIC ACID 1 MG TAB PO SCH (08:09)
[2021-09-05] MEDS: GABAPENTIN 300 MG CAP PO SCH ×3 (08:09→20:46)
[2021-09-05] MEDS: BRIMONIDINE TARTRATE 0.2% DROPS 5 ML BTL BOTH EYES SCH ×2 (08:10→20:47)
--- NOTE | 2021-09-05 10:54 | P.PN ---
Subjective Progress Note Date: 09/05/21 The patient is seen at bedside and feels about the same. Denies any new neurological issues. She had NATTY on 09/04/2021: It is reported as normal left ventricle systolic function. No evidence of intracardiac thrombus or shunt. 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 The plan is to obtain cardiac MRI and if this confirms and defines the exact nature of the mass lesion noted on the aortic valve were for her to cardiothoracic surgeon and this could be the reason why she is having recurrent CVAs. Objective - Vital Signs Vital signs: Vital Signs Temp 97.8 F 09/05/21 08:00 Pulse 88 09/05/21 08:00 Resp 20 09/05/21 08:00 BP 114/57 09/05/21 08:00 Pulse Ox 100 09/05/21 08:00 Intake & Output 09/04/21 09/05/21 09/05/21 18:59 06:59 18:59 Intake Total 193 840 240 Balance 193 840 240 Intake: IV 75 Oral 118 840 240 Other: # Voids 2 2 # Bowel Movements 1 1 - Exam GENERAL: The patient is lying in bed and is not in acute distress. NEUROLOGICAL: Higher mental function: The patient is awake, alert, oriented to self, place and time. Patient is following commands. No aphasia and no neglect. Cranial nerves: Visual mart is hard to assess right side since kept on looking around but appears normal while left is legally blind (old). Facial sensation is normal to touch throughout. The facial strength is normal throughout. Tongue is midline and moved [id number] without any difficulty. No dysarthria is noted. Motor: The strength is left upper extremity (mostly distally) and hand chute loader is 4+. Otherwise has good strength throughout. Normal tone and bulk. Sensation: Sensation is hard to assess because of cooperation. WORK-UP: * MRI of the brain with and without is reported as finding consistent with suba cute infarcts, consider embolic phenomena. There is cortical atrophy. The infarcts are located in the right occipital as well as right frontal parietal region. * 2-D echo: Was reported as left ventricle size is normal. Mild concentric left ventricular hypertrophy. Ejection fraction between 55 and 60%. Left atrial size is normal. * CTA of head and neck showed no evidence of dissection of the cervical internal carotid arteries or vertebral arteries or any evidence of significant stenosis at the carotid bifurcation. No evidence of high-grade stenosis or intracranial aneurysm. * Fasting a.m. lipid panel with cholesterol 118, LDL 63, HDL 34 and triglycerides 96. * Hemoglobin A1c 9.2. * She had NATTY on 09/04/2021: It is reported as normal left ventricle systolic function. No evidence of intracardiac thrombus or shunt. 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 - Labs CBC & Chem 7: 09/03/21 09:13 09/03/21 09:13 Labs: Abnormal Lab Results - Last 24 Hours (Table) 09/04/21 09/04/21 09/04/21 Range/Units 11:14 16:41 16:43 POC Glucose (mg/dL) 352 H 509 H 489 H (75-99) mg/dL 09/04/21 09/05/21 09/05/21 Range/Units 20:05 01:00 06:03 POC Glucose (mg/dL) 453 H 48 L 300 H (75-99) mg/dL Assessment and Plan Assessment: * Sub-acute ischemic stroke right occipital/parietal/frontal region region, seems embolic (on NATTY: Abnormal aortic valve showing echodense lesion attached to aortic surface of the right coronary cusp) . She complains of left upper extremity paresis hand numbness. No IV tpa since outside window and the risk outweigh the benefit. 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 Plan: * MRI of the brain with and without is reported as finding consistent with subacute infarcts, consider embolic phenomena. There is cortical atrophy. The infarcts are located in the right occipital as well as right frontal parietal region. * She had NATTY on 09/04/2021: It is reported as normal left ventricle systolic function. No evidence of intracardiac thrombus or shunt. 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 * Patient has been on aspirin 81 mg daily, therefore added Plavix 75 mg daily. After 21 days, may stop aspirin and continue Plavix indefinitely. * Continue Lipitor 40mg qhs. * Cardiology is on board. * Hemoglobin A1c 9.2. Recommend optimize diabetes controlled to target A1c <7.0 * Patient has macrocytosis. Patient has received B12 injection yesterday, therefore it will be normal. B12 1762, folate 7.6. We will start folate replacement. MMA: 1.0 (normal <0.40) * Telemetric monitoring, rule out atrial fibrillation. * PT OT. * Recommend complete tobacco cessation. * Will defer the rest of medical management to the primary team. * For DVT prophylaxis: On subq heparin 5000U q12 hour. * Upon discharge, recommend patient to follow-up with neurologist as outpatient within 1-2 weeks. The plan is discussed with the patient, cardiology N.P and her nurse. Yrn Tate M.D. Neuro-Hospitalist Time with Patient: Less than 30
[2021-09-05 11:40] LABS: Glucose,Whole Blood 309 mg/dL (75-99)
--- NOTE | 2021-09-05 12:53 | P.PN ---
Subjective Progress Note Date: 09/05/21 HISTORY OF PRESENT ILLNESS: This is a 60-year-old female with a past medical history significant for coronary artery disease with previous angioplasty of RCA in 1994, hypertension, hyperlipidemia, diabetes, and previous CVA. Patient follows in the office with Dr. Woo. We have been asked to see the patient in consultation for CVA/NATTY. Patient examined at the bedside. patient states that she was recently at her doctor's office and was evaluated for weakness. She states that she was given a B12 shot at that time. She states later on that day and the following day she began having a headache. She states she then began having left arm weakness. She reports some slurred speech for a couple minutes as well. She states her speech is back to baseline but continues to have weakness of her left arm. She denies any chest pain or pressure. Denies any shortness of breath. Denies any dizziness or lightheadedness. She denies any palpitations. * EKG reveals sinus mechanism with no signs of acute ischemia * Chest xray negative for acute process * Laboratory data: WBC 6.8. Hemoglobin 12.2. Platelet count 254. Sodium 128. Potassium 5.3. BUN 39. Creatinine 1.17. * Current home cardiac medications include lisinopril 10 mg daily, Lasix 20 mg at night and 40 mg in the morning, Lipitor 80 mg daily * echocardiogram completed revealing ejection fraction 55-60%, mild TR, and small generalized pericardial effusion * Patient underwent Lexiscan stress test in September 2018 which was negative for ischemia 09/05/2021 Patient examined this morning at the bedside. Patient denies chest pain or pressure. She denies shortness of breath. She is status post NATTY yesterday revealing normal LV systolic function, no evidence of intracardiac thrombus, no evidence of intracardiac shunt. NATTY did reveal abnormal aortic valve showing an echodense lesion attached to the aortic surface of the right coronary cusp. Patient will be scheduled for outpatient cardiac MRI to evaluate the nature of the mass noted on the aortic valve. PHYSICAL EXAM: VITAL SIGNS: Reviewed. GENERAL: Well-developed in no acute distress. HEENT: Head is normocephalic. Pupils are equal, round. Sclerae anicteric. Mucous membranes of the mouth are moist. Neck supple. No JVD or thyromegaly LUNGS: Respirations even and unlabored. Lungs essentially clear to auscultation bilaterally. HEART: Regular rate and rhythm. S1 and S2 heard. ABDOMEN: Soft. Nondistended. Nontender. EXTREMITIES: Left upper extremity weakness. No clubbing or cyanosis. Peripheral pulses intact. Trace bilateral lower extremity edema NEUROLOGIC: Awake and alert. Oriented x 3. 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 Signing provider agrees with the documented findings, assessment, and plan of care. Objective - Vital Signs Vital signs: Vital Signs Temp 97.7 F 09/05/21 11:50 Pulse 80 09/05/21 11:50 Resp 20 09/05/21 11:50 BP 109/61 09/05/21 11:50 Pulse Ox 98 09/05/21 11:50 Intake & Output 09/04/21 09/05/21 09/05/21 18:59 06:59 18:59 Intake Total 193 840 240 Balance 193 840 240 Intake: IV 75 Oral 118 840 240 Other: # Voids 2 2 # Bowel Movements 1 1 - Labs CBC & Chem 7: 09/03/21 09:13 09/03/21 09:13 Labs: Abnormal Lab Results - Last 24 Hours (Table) 09/04/21 09/04/21 09/04/21 Range/Units 16:41 16:43 20:05 POC Glucose (mg/dL) 509 H 489 H 453 H (75-99) mg/dL 09/05/21 09/05/21 09/05/21 Range/Units 01:00 06:03 11:38 POC Glucose (mg/dL) 48 L 300 H 309 H (75-99) mg/dL
--- NOTE | 2021-09-05 12:54 | P.PN ---
Subjective Progress Note Date: 09/05/21 This is a 60-year-old female who was recently admitted with acute right parieto- occipital stroke continues to have some left-sided weakness and incoordination with left hand and is being closely monitored. Neurology following and evaluation is in progress and recommending possible NATTY and cardiology has been consulted and pending. Patient's blood sugars continue to be uncontrolled and hyperglycemic and added low-dose long-acting at night and we'll transition to daytime as blood sugar dropped significantly. Recommend continue with Accu- Cheks before meals and at bedtime and sliding scale as well. Patient denies chest pain, shortness of breath, or palpitations. Patient is afebrile. Patient tolerating diet with no reports of nausea or vomiting noted. 09/04/2021 Patient is seen in follow-up this morning and is being closely monitored. Neurology following as well and cardiology has been consulted for possible NATTY as MRI of the brain showed possible embolic source for the CVA and awaiting possible NATTY at this time. Patient will be NPO in the event of NATTY. Patient blood sugars continue to be uncontrolled and elevated. patient Will be continued on sliding scale and long acting. Patient reports to eating 100% of all meals. Patient with continued left upper extremity numbness and displays ataxia on exam. Patient denies chest pain or shortness of breath. Patient is afebrile. 09/05/2021 Patient is seen this morning and being followed by neurology and cardiology. 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 No thrombus noted. Cardiology recommending cardiac MRI and will consult cardiothoracic surgery for evaluation. Patient to continue aspirin and plavix per neuro. Patient blood sugars are fluctuating and slightly improving and will continue current medications and close monitoring of accuchecks achs and as needed. Patient denies chest pain or shortness of breath. Afebrile. Review of systems: Constitutional: No reports of fatigue, fever, or chills Cardiovascular: No reports of chest pain or palpitations Respiratory: No reports of shortness of breath or cough GI: no reports of nausea, no reports of of vomiting, no reports of diarrhea : No reports of dysuria or retention Neurovascular: no reports of generalized weakness, reports left-sided hand numbness, slightly improving Active Medications Acetaminophen (Acetaminophen Tab 325 Mg Tab) 650 mg PO Q6HR PRN PRN Reason: Fever and/ or Pain Last Admin: 09/04/21 19:45 Dose: 650 mg Documented by: Aspirin (Aspirin 81 Mg) 81 mg PO DAILY [facility] Last Admin: 09/05/21 08:09 Dose: 81 mg Documented by: Atorvastatin Calcium (Atorvastatin 40 Mg Tab) 40 mg PO HS [facility] Last Admin: 09/04/21 20:58 Dose: 40 mg Documented by: Brimonidine Tartrate (Brimonidine Tartrate 0.2% Drops 5 Ml Btl) 1 drops BOTH EYES BID [facility] Last Admin: 09/05/21 08:10 Dose: 1 drops Documented by: Calcitriol (Calcitriol 0.25 Mcg Cap) 0.25 mcg PO Q7D [facility] Last Admin: 09/01/21 08:47 Dose: 0.25 mcg Documented by: Clopidogrel Bisulfate (Clopidogrel 75 Mg Tab) 75 mg PO DAILY [facility] Last Admin: 09/05/21 08:09 Dose: 75 mg Documented by: Cyanocobalamin (Cyanocobalamin 500 Mcg Tab) 1,000 mcg PO DAILY [facility] Last Admin: 09/05/21 08:09 Dose: 1,000 mcg Documented by: Folic Acid (Folic Acid 1 Mg Tab) 1 mg PO DAILY [facility] Last Admin: 09/05/21 08:09 Dose: 1 mg Documented by: Furosemide (Furosemide 40 Mg Tab) 40 mg PO DAILY [facility] Last Admin: 09/05/21 08:09 Dose: 40 mg Documented by: Gabapentin (Gabapentin 300 Mg Cap) 600 mg PO TID [facility] Last Admin: 09/05/21 08:09 Dose: 600 mg Documented by: Heparin Sodium (Porcine) (Heparin Sodium,Porcine/Pf 5,000 Unit/0.5 Ml Syringe) 5,000 unit SQ Q12HR [facility] Last Admin: 09/05/21 08:09 Dose: 5,000 unit Documented by: Insulin Aspart (Insulin Aspart (Novolog) 100 Unit/Ml Vial) 0 unit SQ [facility]; Protocol Last Admin: 09/05/21 12:15 Dose: 5 unit Documented by: Insulin Detemir (Insulin Detemir (Levemir) 100 Unit/Ml Syr) 10 unit SQ BID@0700,2100 [facility] Last Admin: 09/05/21 06:23 Dose: 10 unit Documented by: Latanoprost (Latanoprost 0.005% Ophth Drops 2.5 Ml Btl) 1 drops BOTH EYES HS [facility] Last Admin: 09/04/21 20:59 Dose: 1 drops Documented by: Levothyroxine Sodium (Levothyroxine 100 Mcg Tab) 100 mcg PO 0630 [facility] Last Admin: 09/05/21 06:22 Dose: 100 mcg Documented by: Pantoprazole Sodium (Pantoprazole 40 Mg Tablet) 40 mg PO AC-BRKFST [facility] Last Admin: 09/05/21 06:22 Dose: 40 mg Documented by: PHYSICAL EXAMINATION: GENERAL: The patient is alert and oriented x4, Well developed, well nourished. Obese HEENT: Pupils are round and equally reacting to light. EOMI. no scleral icterus. No conjunctival pallor. Normocephalic, atraumatic. No pharyngeal erythema. No thyromegaly. CARDIOVASCULAR: S1 and S2 muffled PULMONARY: diminished breath sounds bilaterally with no wheezing or rhonchi noted. ABDOMEN: soft. Nontender on exam. obese. non-distended, normoactive bowel sounds. No palpable organomegaly. MUSCULOSKELETAL: No joint swelling or deformity. EXTREMITIES: No cyanosis, clubbing, or pedal edema. 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 ataxia noted. Diffuse weakness of the left side SKIN: No rashes. 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 as noted on NATTY History of stroke previously Gait dysfunction diabetes mellitus type 2 uncontrolled with hyperglycemia Hypertension hyperlipidemia Hyponatremia GI prophylaxis DVT prophylaxis Plan: Recommend to continue with current medications and management. Neurology following the patient and cardiology as well and is status post NATTY as mentioned above. Will consult cardiothoracic surgery. Recommend continue with Accu-Cheks before meals and at bedtime and as needed and continue sliding scale and long acting BID. Due to multiple complex medical issues, prognosis is guarded. The impression and plan of care has been dictated as a scribe by Dulce Muniz, nurse practitioner as directed. MD Julianna I have performed a history and examination and MDM of this patient, discussed the same with the dictator, documented as a scribe. Based on total visit time, I have performed more than 50% of the visit. Objective - Vital Signs Vital signs: Vital Signs Temp 97.8 F 09/05/21 08:00 Pulse 88 09/05/21 08:00 Resp 20 09/05/21 08:00 BP 114/57 09/05/21 08:00 Pulse Ox 100 09/05/21 08:00 Intake & Output 09/04/21 09/05/21 09/05/21 18:59 06:59 18:59 Intake Total 193 840 240 Balance 193 840 240 Intake: IV 75 Oral 118 840 240 Other: # Voids 2 2 # Bowel Movements 1 1 - Labs CBC & Chem 7: 09/03/21 09:13 09/03/21 09:13 Labs: Abnormal Lab Results - Last 24 Hours (Table) 09/04/21 09/04/21 09/04/21 Range/Units 11:14 16:41 16:43 POC Glucose (mg/dL) 352 H 509 H 489 H (75-99) mg/dL 09/04/21 09/05/21 09/05/21 Range/Units 20:05 01:00 06:03 POC Glucose (mg/dL) 453 H 48 L 300 H (75-99) mg/dL
[2021-09-05 16:35] LABS: Glucose,Whole Blood 284 mg/dL (75-99)
--- NOTE | 2021-09-05 17:34 | P.GSCN ---
History of Present Illness Consult date: 09/05/21 Reason for Consult: Aortic valve mass Requesting physician: Theodore Colon History of present illness: This is a 60-year-old female patient who follows with Dr. Priya Hough on an outpatient basis for her primary care service. She also follows with Dr. Woo for her cardiology care. She has a past medical history significant for hypertension, hyperlipidemia, insulin-dependent diabetes mellitus, elevated creatinine followed by Dr. 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 The patient presented to the emergency department here at [facility] last 08/31/2021 with complaints of left upper extremity numbness and weakness and complaint of a headache. The patient reports that on 08/30/2021 she received a B12 injection at her primary care doctor's office and subsequently d eveloped a headache after the injection. She took Tylenol but did not have any relief from the headache. She also reports that she tried to pour a couple coffee with her left arm and while pouring the coffee she could not hold the coffee pot upright. Due to the left upper extremity weakness she presented to the emergency department. The patient denies any complaints of fever, chills, nausea, vomiting, diarrhea, constipation, recent trauma, slurred speech, presyncope or syncope. A chest x-ray was completed which showed no acute cardiopulmonary disease/process. A computed tomography scan of her brain was completed which demonstrated acute/subacute CVA of the right parietal occipital region and similar encphalomalacia of the posterior right frontal lobe from prior injury. A CT angio pad and neck was also completed and demonstrated no evidence of dissection of the cervical internal carotid arteries or the vertebral arteries or any evidence of significant stenosis of the carotid bifu rcations, no evidence of high-grade stenosis or intracranial aneurysm, acute/subacute CVA of the right parietal occipital region and similar encphalomalacia of the posterior right frontal lobe from prior injury. On 09/02/2021 for transthoracic 2-D echocardiogram was completed which showed an overall left ventricular systolic function to be normal with an ejection fraction between 55 and 60%, mild concentric left ventricular hypertrophy and mild tricuspid valve regurgitation with a small generalized pericardial effusion. For further evaluation on 09/03/2021 the patient underwent a MRI of her brain which showed findings consistent with subacute infarcts, consider embolic phenomenon. It also showed cortical atrophy. Subsequently, due to the patient's presenting symptoms, and findings on the MRI suggestive of embolic phenomenon, a consult was placed to cardiology for a NATTY. A transesophageal echocardiogram was completed which demonstrated a 3 leaflet aortic valve, no evidence of aortic valve stenosis or regurgitation, an echo dense lesion that appears mobile attached to the aortic surface of the right coronary cusp which could represent a fibroelastoma or focal calcification. It also demonstrated mild mitral valve regurgitation, a left ventricular to be normal in size and systolic function and her left atrial appendage to be free of thrombus. Due to the findings on the transesophageal echocardiogram consult was placed to Dr. Yrn Sims from cardiothoracic surgery for further evaluation and treatment recommendations. Past Medical History Past Medical History: Coronary Artery Disease (CAD) (History of PCI 35 years ago), CVA/TIA (Reports history of TIA in October 2020), Diabetes Mellitus, Hyperlipidemia, Hypertension, Myocardial Infarction ([place]), Renal Disease, Thyroid Disorder Additional Past Medical History / Comment(s): graves disease, glaucoma, 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 Last Myocardial Infarction Date:: 1994 History of Any Multi-Drug Resistant Organisms: None Reported Past Surgical History: Appendectomy, Section, Tonsillectomy Additional Past Surgical History / Comment(s): breast biopsy, right eye cataract Past Anesthesia/Blood Transfusion Reactions: No Reported Reaction Past Psychological History: No Psychological Hx Reported Smoking Status: Current every day smoker Past Alcohol Use History: None Reported Past Drug Use History: None Reported - Past Family History Father Family Medical History: CVA/TIA, Diabetes Mellitus Mother Family Medical History: Pneumonia Sister(s) Family Medical History: Congestive Heart Failure (CHF), Myocardial Infarction ([place]) Medications and Allergies Home Medications Medication Instructions Recorded Confirmed Type Furosemide [Lasix] 40 mg PO DAILY 07/27/14 08/31/21 History Gabapentin 600 mg PO TID 07/27/14 08/31/21 History Latanoprost Ophth [Xalatan 0.005%] 1 drop BOTH EYES HS 07/27/14 08/31/21 History Atorvastatin [Lipitor] 80 mg PO DAILY 08/19/20 08/31/21 History Brimonidine Tartrate [Alphagan P 1 drops BOTH EYES BID 08/19/20 08/31/21 History 0.2% Ophth Soln] Levothyroxine Sodium [Synthroid] 100 mcg PO DAILY 08/31/21 08/31/21 History calcitrioL [Calcitriol] 0.25 mcg PO Q7D 08/31/21 08/31/21 History Aspirin 81 mg PO DAILY 21 Days #21 tab 09/08/21 Rx Clopidogrel [Plavix] 75 mg PO DAILY #30 tab 09/08/21 Rx Cyanocobalamin [Vitamin B-12] 1,000 mcg PO DAILY #30 tab 09/08/21 Rx Famotidine [Pepcid] 20 mg PO DAILY #30 tablet 09/08/21 Rx Folic Acid 1 mg PO DAILY #30 tab 09/08/21 Rx Insulin Aspart [NovoLOG Flexpen] 0 units SQ ACHS #3 each 09/08/21 Rx Insulin Aspart [NovoLOG Flexpen] 5 units SQ AC-TID #1 09/08/21 08/31/21 Rx Insulin Glargine,Hum.rec.anlog 10 unit SQ BID #3 each 09/08/21 Rx [Lantus Solostar Pen] Allergies Allergy/AdvReac Type Severity Reaction Status Date / Time cephalexin monohydrate Allergy Vomiting Verified 08/31/21 14:07 [From Keflex] prochlorperazine edisylate AdvReac SOB Verified 08/31/21 14:07 [From Compazine] prochlorperazine maleate AdvReac SOB Verified 08/31/21 14:07 [From Compazine] Surgical - Exam Vital Signs Temp Pulse Resp BP Pulse Ox 98.8 F 85 18 172/86 99 08/31/21 11:02 08/31/21 11:02 08/31/21 11:02 08/31/21 11:02 08/31/21 11:02 - General well developed, well nourished, no distress, no pain, chronically ill, obese - Eyes PERRL, normal ocular movement, no pale, no icteric - ENT Legally blind to her left eye normal pinna, normal nares, normal mucosa, no hearing loss, no congestion, dentu res - Neck Neck is supple, no lymphadenopathy. no masses, no bruits, trachea midline, no venous distension - Respiratory Lung sounds essentially clear throughout. Respirations are symmetrical and nonlabored. - Cardiovascular Regular rhythm and rate. S1 and S2 present, negative for S3, gallop or murmur. No edema present. - Abdomen Abdomen is soft, nontender nondistended. Active bowel sounds present all 4 abdominal quadrants. No guarding or rigidity. No organomegaly appreciated. - Integumentary Skin is warm and dry. No clubbing or cyanosis is present. no rash, no growths, no abnormal pigmentation - Neurologic Awake alert and oriented 3 - Musculoskeletal Left upper extremity weakness. - Psychiatric memory intact Results - Labs 09/03/21 09:13 09/08/21 12:51 Abnormal Lab Results - Last 24 Hours (Table) 09/04/21 09/04/21 09/04/21 Range/Units 16:41 16:43 20:05 POC Glucose (mg/dL) 509 H 489 H 453 H (75-99) mg/dL 09/05/21 09/05/21 09/05/21 Range/Units 01:00 06:03 11:38 POC Glucose (mg/dL) 48 L 300 H 309 H (75-99) mg/dL 09/05/21 Range/Units 16:33 POC Glucose (mg/dL) 284 H (75-99) mg/dL - Imaging Additional studies: 2-D echocardiogram and transesophageal echocardiogram results reviewed by Dr. Moon Sims. Assessment and Plan Assessment: 1. Subacute ischemic stroke of the right parietal occipital region 2. 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 History of coronary artery disease with previous PCI of the right coronary artery 35 years ago, with previous myocardial infarction 4. History of TIA in October 2020 5. History of hypertension 6. Hyperlipidemia 7. Insulin-dependent diabetes mellitus 8. Graves' disease 9. Elevated creatinine followed by Dr. Bauer 10. Legally blind to her left eye 11. Vaccinated and boosted against COVID-19 12. Chronic ongoing tobacco dependence. Plan: The patient was seen and examined by Dr. Yrn Sims at her bedside on the third floor cardiac stepdown unit. Her chart and diagnostics were reviewed. Findings on her transesophageal echocardiogram were discussed with the patient by Dr. Sims. Dr. Sims and Dr. Woo from cardiology discussed treatment options with shared decision-making. No surgical intervention is warranted at this time, agree with proceeding with cardiac MRI. If the patient were to need cardiac surgery in the future she would need to undergo a cardiac catheterization prior. Continue to optimize medical management. Medical management and other comorbidities per primary care service and other consultants. More recommendations to follow based on patient's clinical course. Thank you Dr. Woo for this consult and we look forward to working with you in the care of this patient. I have personally seen and examined the patient, performed the documentation and the assessment and plan as written. Number of minutes spent on the visit, 30 minutes . Raudel SHEPHERD The patient is a 60 year old female, with a history of subacute TIA consistent with embolic source, who was found to have a small vegetation/mass on her aortic valve diagnosed with NATTY. Doubt endocarditis given negative blood cultures. Recommend cardiac MRI to better characterize the mass as an outpatient. If surgical intervention is warranted, she will need additional workup including cardiac catheterization. Discussed with Dr. Woo who is in agreement. Further recommendations to follow. I have personally seen and examined the patient, reviewed the documentation and agree with the assessment and plan as written. Number of minutes spent on the visit: 45 minutes. Yrn Sims M.D.
[2021-09-05 20:01] LABS: Glucose,Whole Blood 382 mg/dL (75-99)
[2021-09-05] MEDS: ATORVASTATIN 40 MG TAB PO SCH (20:46)
[2021-09-05] MEDS: LATANOPROST 0.005% OPHTH DROPS 2.5 ML BTL BOTH EYES SCH (20:47)
[2021-09-06 02:48] LABS: Glucose,Whole Blood 169 mg/dL (75-99)
[2021-09-06 05:58] LABS: Glucose,Whole Blood 220 mg/dL (75-99)
[2021-09-06] MEDS: LEVOTHYROXINE 100 MCG TAB PO SCH (06:42)
[2021-09-06] MEDS: PANTOPRAZOLE 40 MG TABLET PO SCH (06:42)
[2021-09-06] MEDS: INSULIN ASPART (NovoLOG) 100 UNIT/ML VIAL SQ SCH ×5 (06:42→20:31)
[2021-09-06] MEDS: INSULIN DETEMIR (LEVEMIR) 100 UNIT/ML SYR SQ SCH ×2 (06:42→20:30)
[2021-09-06] MEDS: GABAPENTIN 300 MG CAP PO SCH ×3 (08:33→20:30)
[2021-09-06] MEDS: ASPIRIN 81 MG PO SCH (08:33)
[2021-09-06] MEDS: FUROSEMIDE 40 MG TAB PO SCH (08:33)
[2021-09-06] MEDS: CYANOCOBALAMIN 500 MCG TAB PO SCH (08:33)
[2021-09-06] MEDS: CLOPIDOGREL 75 MG TAB PO SCH (08:33)
[2021-09-06] MEDS: FOLIC ACID 1 MG TAB PO SCH (08:33)
[2021-09-06] MEDS: HEPARIN SODIUM,PORCINE/PF 5,000 UNIT/0.5 ML SYRINGE SQ SCH ×2 (08:34→20:30)
[2021-09-06] MEDS: BRIMONIDINE TARTRATE 0.2% DROPS 5 ML BTL BOTH EYES SCH ×2 (08:36→20:31)
[2021-09-06 10:34] LABS: Calcium 8.7 mg/dL (8.4-10.2); Potassium 5.2 mmol/L (3.5-5.1)
[2021-09-06 11:41] LABS: Glucose,Whole Blood 309 mg/dL (75-99)
--- NOTE | 2021-09-06 15:08 | P.PN ---
Subjective Progress Note Date: 09/06/21 09/06/2021 Patient evaluated today resting in bed. No acute events overnight. Still complains of numbness to her left hand was having difficulty at home with her medication management due to this. Patient will follow-up with cardiothoracic outpatient after cardiac MRI. Labs today show sodium 128, potassium 5.2, BUN 46, creatinine 1.28, blood glucose in the 300s to 400s today. We'll give patient gentle hydration overnight and repeat sodium in the morning, Hold oral Lasix for now. Add meal time insulin and monitor sugars closely, patient will need long acting insulin on discharge this was discussed with her. Vitals stable today. Review of Systems Constitutional: Denied any fatigue denied any fever. Cardio vascular: denied any chest pain, palpitations Gastrointestinal: denied any nausea, vomiting, diarrhea Pulmonary: Denied any shortness of breath cough Neurologic denied any new focal deficits All inpatient medications were reviewed and appropriate changes in these medications as dictated in the interval history and assessment and plan. PHYSICAL EXAMINATION: GENERAL: The patient is alert and oriented x4, Well developed, well nourished. Obese HEENT: Pupils are round and equally reacting to light. EOMI. no scleral icterus. No conjunctival pallor. Normocephalic, atraumatic. No pharyngeal erythema. No thyromegaly. CARDIOVASCULAR: S1 and S2 muffled PULMONARY: diminished breath sounds bilaterally with no wheezing or rhonchi noted. ABDOMEN: soft. Nontender on exam. obese. non-distended, normoactive bowel sounds. No palpable organomegaly. MUSCULOSKELETAL: No joint swelling or deformity. EXTREMITIES: No cyanosis, clubbing, or pedal edema. Left upper extremity weakness 4/5 shingle carrier strength NEUROLOGICAL: Gross neurological examination did not reveal any focal deficits. ataxia noted. Diffuse weakness of the left side SKIN: No rashes. 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 as noted on NATTY History of stroke previously Acute kidney injury Gait dysfunction Diabetes mellitus type 2 uncontrolled with hyperglycemia Hypertension Hyperlipidemia Hyponatremia, possibly hypovolemic GI prophylaxis DVT prophylaxis Plan: Hold lasix IV fluids overnight Repeat labs in the morning Cardiac MRI outpatient Cardiothoracic and neurology follow up on discharge Adjust insulin and monitor closely Guarded prognosis The impression and plan of care has been dictated by Ave Hopper, Nurse Practitioner as directed. Dr. Shanti MD I have performed a history and physical examination and medical decision making of this patient, discussed the same with the dictator, and agree with the dictators assessment and plan as written, documented as a scribe. Based on total visit time, I have performed more than 50% of this visit. Objective - Vital Signs Vital signs: Vital Signs Temp 98 F 09/06/21 11:37 Pulse 90 09/06/21 11:37 Resp 20 09/06/21 11:37 BP 106/69 09/06/21 11:37 Pulse Ox 98 09/06/21 11:37 Intake & Output 09/05/21 09/06/21 09/06/21 18:59 06:59 18:59 Intake Total 1260 657 Balance 1260 657 Intake: Oral 1260 657 Other: Voiding Method Toilet # Voids 1 1 1 - Labs CBC & Chem 7: 09/03/21 09:13 09/06/21 09:45 Labs: Abnormal Lab Results - Last 24 Hours (Table) 09/05/21 09/05/21 09/06/21 Range/Units 16:33 19:59 02:46 Sodium (137-145) mmol/L Potassium (3.5-5.1) mmol/L BUN (7-17) mg/dL Creatinine (0.52-1.04) mg/dL Glucose (74-99) mg/dL POC Glucose (mg/dL) 284 H 382 H 169 H (75-99) mg/dL 09/06/21 09/06/21 09/06/21 Range/Units 05:56 09:45 11:39 Sodium 128 L (137-145) mmol/L Potassium 5.2 H (3.5-5.1) mmol/L BUN 46 H (7-17) mg/dL Creatinine 1.28 H (0.52-1.04) mg/dL Glucose 260 H (74-99) mg/dL POC Glucose (mg/dL) 220 H 309 H (75-99) mg/dL Assessment and Plan Time with Patient: Less than 30
--- NOTE | 2021-09-06 15:45 | P.PN ---
Subjective Progress Note Date: 09/06/21 The patient is seen at bedside and feels she is doing about the same. She denies of any new neurological issues. Objective - Vital Signs Vital signs: Vital Signs Temp 98 F 09/06/21 11:37 Pulse 90 09/06/21 11:37 Resp 20 09/06/21 11:37 BP 106/69 09/06/21 11:37 Pulse Ox 98 09/06/21 11:37 Intake & Output 09/05/21 09/06/21 09/06/21 18:59 06:59 18:59 Intake Total 1260 657 180 Balance 1260 657 180 Intake: Oral 1260 657 180 Other: Voiding Method Toilet # Voids 1 1 1 - Exam GENERAL: The patient is lying in bed and is not in acute distress. NEUROLOGICAL: Higher mental function: The patient is awake, alert, oriented to self, place and time. Patient is following commands. No aphasia and no neglect. Cranial nerves: Visual mart is hard to assess right side since kept on looking around but appears normal while left is legally blind (old). Facial sensation is normal to touch throughout. The facial strength is normal thr oughout. Tongue is midline and moved [id number] without any difficulty. No dysarthria is noted. Motor: The strength is left upper extremity (mostly distally) and hand instrument technician apprentice is 4+. Otherwise has good strength throughout. Normal tone and bulk. Sensation: Sensation is hard to assess because of cooperation. WORK-UP: * MRI of the brain with and without is reported as finding consistent with subacute infarcts, consider embolic phenomena. There is cortical atrophy. The infarcts are located in the right occipital as well as right frontal parietal region. * 2-D echo: Was reported as left ventricle size is normal. Mild concentric left ventricular hypertrophy. Ejection fraction between 55 and 60%. Left atrial size is normal. * CTA of head and neck showed no evidence of dissection of the cervical internal carotid arteries or vertebral arteries or any evidence of significant stenosis at the carotid bifurcation. No evidence of high-grade stenosis or intrac ranial aneurysm. * Fasting a.m. lipid panel with cholesterol 118, LDL 63, HDL 34 and triglycerides 96. * Hemoglobin A1c 9.2. * She had NATTY on 09/04/2021: It is reported as normal left ventricle systolic function. No evidence of intracardiac thrombus or shunt. 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 - Labs CBC & Chem 7: 09/03/21 09:13 09/06/21 09:45 Labs: Abnormal Lab Results - Last 24 Hours (Table) 09/05/21 09/05/21 09/06/21 Range/Units 16:33 19:59 02:46 Sodium (137-145) mmol/L Potassium (3.5-5.1) mmol/L BUN (7-17) mg/dL Creatinine (0.52-1.04) mg/dL Glucose (74-99) mg/dL POC Glucose (mg/dL) 284 H 382 H 169 H (75-99) mg/dL 09/06/21 09/06/21 09/06/21 Range/Units 05:56 09:45 11:39 Sodium 128 L (137-145) mmol/L Potassium 5.2 H (3.5-5.1) mmol/L BUN 46 H (7-17) mg/dL Creatinine 1.28 H (0.52-1.04) mg/dL Glucose 260 H (74-99) mg/dL POC Glucose (mg/dL) 220 H 309 H (75-99) mg/dL Assessment and Plan Assessment: * Sub-acute ischemic stroke right occipital/parietal/frontal region region, seems embolic (on NATTY: Abnormal aortic valve showing echodense lesion attached to aortic surface of the right coronary cusp) . She complains of left upper extremity paresis hand numbness. No IV tpa since outside window and the risk outweigh the benefit. 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 Plan: * MRI of the brain with and without is reported as finding consistent with subacute infarcts, consider embolic phenomena. There is cortical atrophy. The infarcts are located in the right occipital as well as right frontal parietal region. * She had NATTY on 09/04/2021: It is reported as normal left ventricle systolic function. No evidence of intracardiac thrombus or shunt. 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 * Cardiothoracic team is consulted and they agreed with proceeding with cardiac MRI. It seems that she'll be discharged to obtain the cardiac MRI since it is not available in our facility. Per cardiothoracic teamor surgical intervention is warranted at this time. * Patient has been on aspirin 81 mg daily, therefore added Plavix 75 mg daily. After 21 days, may stop aspirin and continue Plavix indefinitely. * Continue Lipitor 40mg qhs. * Cardiology is on board. * Hemoglobin A1c 9.2. Recommend optimize diabetes controlled to target A1c <7.0 * Patient has macrocytosis. Patient has received B12 injection yesterday, therefore it will be normal. B12 1762, folate 7.6. We will start folate replacement. MMA: 1.0 (normal <0.40) * Telemetric monitoring, rule out atrial fibrillation. * PT OT. * Recommend complete tobacco cessation. * Will defer the rest of medical management to the primary team. * For DVT prophylaxis: On subq heparin 5000U q12 hour. * Upon discharge, recommend patient to follow-up with neurologist as outpatient within 1-2 weeks. The plan is discussed with the patient, primary N.P and her nurse. There is no further neurological work-up. Patient is clear from neurological perspective. Yrn Tate M.D. Neuro-Hospitalist Time with Patient: Less than 30
[2021-09-06 16:47] LABS: Glucose,Whole Blood 435 mg/dL (75-99)
[2021-09-06] MEDS: SODIUM CHLORIDE 0.9% 1,000 ML IV SCH (18:41)
[2021-09-06 20:14] LABS: Glucose,Whole Blood 489 mg/dL (75-99)
[2021-09-06] MEDS: ATORVASTATIN 40 MG TAB PO SCH (20:30)
[2021-09-06] MEDS: LATANOPROST 0.005% OPHTH DROPS 2.5 ML BTL BOTH EYES SCH (20:31)
[2021-09-06 22:28] LABS: Glucose,Whole Blood 267 mg/dL (75-99)
[2021-09-07 01:50] LABS: Glucose,Whole Blood 53 mg/dL (75-99)
[2021-09-07 02:04] LABS: Glucose,Whole Blood 80 mg/dL (75-99)
[2021-09-07 05:33] LABS: Glucose,Whole Blood 350 mg/dL (75-99)
[2021-09-07] MEDS: PANTOPRAZOLE 40 MG TABLET PO SCH (06:10)
[2021-09-07] MEDS: LEVOTHYROXINE 100 MCG TAB PO SCH (06:10)
[2021-09-07 07:03] LABS: Glucose,Whole Blood 432 mg/dL (75-99)
[2021-09-07] MEDS: INSULIN DETEMIR (LEVEMIR) 100 UNIT/ML SYR SQ SCH ×2 (07:11→21:10)
[2021-09-07] MEDS: INSULIN ASPART (NovoLOG) 100 UNIT/ML VIAL SQ SCH ×7 (07:12→22:20)
[2021-09-07] MEDS: CYANOCOBALAMIN 500 MCG TAB PO SCH (08:21)
[2021-09-07] MEDS: FOLIC ACID 1 MG TAB PO SCH (08:21)
[2021-09-07] MEDS: GABAPENTIN 300 MG CAP PO SCH ×3 (08:21→21:10)
[2021-09-07] MEDS: ASPIRIN 81 MG PO SCH (08:21)
[2021-09-07] MEDS: CLOPIDOGREL 75 MG TAB PO SCH (08:21)
[2021-09-07] MEDS: HEPARIN SODIUM,PORCINE/PF 5,000 UNIT/0.5 ML SYRINGE SQ SCH ×2 (08:22→22:20)
[2021-09-07] MEDS: BRIMONIDINE TARTRATE 0.2% DROPS 5 ML BTL BOTH EYES SCH ×2 (08:23→21:10)
[2021-09-07 09:31] LABS: Potassium 4.4 mmol/L (3.5-5.1)
--- NOTE | 2021-09-07 09:43 | P.PN ---
Subjective Progress Note Date: 09/07/21 Patient is seen at bedside and states she is about the same and would like to be discharged. She continues to have weakness and numbness over left hand. Objective - Vital Signs Vital signs: Vital Signs Temp 97.7 F 09/07/21 08:00 Pulse 87 09/07/21 08:00 Resp 20 09/07/21 08:00 BP 117/73 09/07/21 08:00 Pulse Ox 96 09/07/21 08:00 Intake & Output 09/06/21 09/07/21 09/07/21 18:59 06:59 18:59 Intake Total 180 540 0 Output Total 0 Balance 180 540 0 Intake: Oral 180 540 0 Output: Urine 0 Stool 0 Urine/Stool Mix 0 Other: Voiding Method Toilet # Voids 1 1 0 # Bowel Movements 0 - Labs CBC & Chem 7: 09/03/21 09:13 09/07/21 08:34 Labs: Abnormal Lab Results - Last 24 Hours (Table) 09/06/21 09/06/21 09/06/21 Range/Units 09:45 11:39 16:45 Sodium 128 L (137-145) mmol/L Potassium 5.2 H (3.5-5.1) mmol/L BUN 46 H (7-17) mg/dL Creatinine 1.28 H (0.52-1.04) mg/dL Glucose 260 H (74-99) mg/dL POC Glucose (mg/dL) 309 H 435 H (75-99) mg/dL 09/06/21 09/06/21 09/07/21 Range/Units 20:13 22:26 01:49 Sodium (137-145) mmol/L Potassium (3.5-5.1) mmol/L BUN (7-17) mg/dL Creatinine (0.52-1.04) mg/dL Glucose (74-99) mg/dL POC Glucose (mg/dL) 489 H 267 H 53 L (75-99) mg/dL 09/07/21 09/07/21 09/07/21 Range/Units 05:31 07:01 08:34 Sodium 130 L (137-145) mmol/L Potassium (3.5-5.1) mmol/L BUN 43 H (7-17) mg/dL Creatinine 1.13 H (0.52-1.04) mg/dL Glucose 334 H (74-99) mg/dL POC Glucose (mg/dL) 350 H 432 H (75-99) mg/dL Microbiology - Last 24 Hours (Table) 09/05/21 17:19 Blood Culture - Preliminary Blood No Growth after 24 hours 09/05/21 15:28 Blood Culture - Preliminary Blood No Growth after 24 hours Assessment and Plan Assessment: * Sub-acute ischemic stroke right occipital/parietal/frontal region region, seems embolic: Possible cardioembolic. On NATTY: Abnormal aortic valve showing echodense lesion attached to aortic surface of the right coronary cusp . She complains of left upper extremity paresis hand numbness. No IV tpa since o utside window and the risk outweigh the benefit. 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 Plan: * MRI of the brain with and without is reported as finding consistent with subacute infarcts, consider embolic phenomena. There is cortical atrophy. The infarcts are located in the right occipital as well as right frontal parietal region. * She had NATTY on 09/04/2021: It is reported as normal left ventricle systolic function. No evidence of intracardiac thrombus or shunt. 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 * Cardiothoracic team is consulted and they agreed with proceeding with cardiac MRI. It seems that she'll be discharged to obtain the cardiac MRI since it is not available in our facility. Per cardiothoracic team surgical intervention is not warranted at this time. * Patient has been on aspirin 81 mg daily, therefore added Plavix 75 mg daily. After 21 days, may stop aspirin and continue Plavix indefinitely. * Continue Lipitor 40mg qhs. * Cardiology is on board. * Hemoglobin A1c 9.2. Recommend optimize diabetes controlled to target A1c <7.0 * Patient has macrocytosis. Patient has received B12 injection yesterday, therefore it will be normal. B12 1762, folate 7.6. We will start folate replacement. MMA: 1.0 (normal <0.40) * Telemetric monitoring to be continued. She is in sinus rhythm. * PT and OT consulted. * Recommend complete tobacco cessation. * Will defer the rest of medical management to the primary team. * For DVT prophylaxis: On subq heparin 5000U q12 hour. * Upon discharge, recommend patient to follow-up with neurologist as outpatient within 1-2 weeks. The plan is discussed with the patient, primary N.P and her nurse. There is no further neurological work-up. Patient is clear from neurological perspective. Yrn Tate M.D. Neuro-Hospitalist Time with Patient: Less than 30
[2021-09-07 11:47] LABS: Glucose,Whole Blood 386 mg/dL (75-99)
[2021-09-07] MEDS: SODIUM CHLORIDE 0.9% 1,000 ML IV SCH (12:30)
--- NOTE | 2021-09-07 14:19 | P.PN ---
Subjective Progress Note Date: 09/07/21 09/06/2021 Patient evaluated today resting in bed. No acute events overnight. Still complains of numbness to her left hand was having difficulty at home with her medication management due to this. Patient will follow-up with cardiothoracic outpatient after cardiac MRI. Labs today show sodium 128, potassium 5.2, BUN 46, creatinine 1.28, blood glucose in the 300s to 400s today. We'll give patient gentle hydration overnight and repeat sodium in the morning, Hold oral Lasix for now. Add meal time insulin and monitor sugars closely, patient will need long acting insulin on discharge this was discussed with her. Vitals stable today. 09/07/2021 Patient hoping for discharge today. Blood sugar dropped to 53 at 0100 today, now in the 300-400s. Increasing mealtime insulin. Sodium improved to 130, creatinine 1.13 with IV fluids. Potassium improved today now 4.4. Vitals stable. Continue hydration overnight and monitor blood sugars. If normalized, plan for DC tomorrow. Cleared by all consultations. Review of Systems Constitutional: Denied any fatigue denied any fever. Cardio vascular: denied any chest pain, palpitations Gastrointestinal: denied any nausea, vomiting, diarrhea Pulmonary: Denied any shortness of breath cough Neurologic denied any new focal deficits All inpatient medications were reviewed and appropriate changes in these medications as dictated in the interval history and assessment and plan. PHYSICAL EXAMINATION: GENERAL: The patient is alert and oriented x4, Well developed, well nourished. Obese HEENT: Pupils are round and equally reacting to light. EOMI. no scleral icterus. No conjunctival pallor. Normocephalic, atraumatic. No pharyngeal erythema. No thyromegaly. CARDIOVASCULAR: S1 and S2 muffled PULMONARY: diminished breath sounds bilaterally with no wheezing or rhonchi noted. ABDOMEN: soft. Nontender on exam. obese. non-distended, normoactive bowel sounds. No palpable organomegaly. MUSCULOSKELETAL: No joint swelling or deformity. EXTREMITIES: No cyanosis, clubbing, or pedal edema. Left upper extremity weakness 4/5 computational chemist strength NEUROLOGICAL: Gross neurological examination did not reveal any focal deficits. ataxia noted. Diffuse weakness of the left side SKIN: No rashes. 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 as noted on NATTY History of stroke previously Acute kidney injury Gait dysfunction Diabetes mellitus type 2 uncontrolled with hyperglycemia Hypertension Hyperlipidemia Hyponatremia, possibly hypovolemic GI prophylaxis DVT prophylaxis Plan: Hold lasix IV fluids Repeat labs in the morning Cardiac MRI outpatient Cardiothoracic and neurology follow up on discharge Adjust insulin and monitor closely Guarded prognosis The impression and plan of care has been dictated by Ave Hopper, Nurse Practitioner as directed. Dr. Shanti MD I have performed a history and physical examination and medical decision making of this patient, discussed the same with the dictator, and agree with the dictators assessment and plan as written, documented as a scribe. Based on total visit time, I have performed more than 50% of this visit. Objective - Vital Signs Vital signs: Vital Signs Temp 97.4 F L 09/07/21 12:00 Pulse 70 09/07/21 12:00 Resp 20 09/07/21 12:00 BP 138/62 09/07/21 12:00 Pulse Ox 98 09/07/21 12:00 Intake & Output 09/06/21 09/07/21 09/07/21 18:59 06:59 18:59 Intake Total 180 540 0 Output Total 0 Balance 180 540 0 Intake: Oral 180 540 0 Output: Urine 0 Stool 0 Urine/Stool Mix 0 Other: Voiding Method Toilet # Voids 1 1 0 # Bowel Movements 0 - Labs CBC & Chem 7: 09/03/21 09:13 09/07/21 08:34 Labs: Abnormal Lab Results - Last 24 Hours (Table) 09/06/21 09/06/21 09/06/21 Range/Units 16:45 20:13 22:26 Sodium (137-145) mmol/L BUN (7-17) mg/dL Creatinine (0.52-1.04) mg/dL Glucose (74-99) mg/dL POC Glucose (mg/dL) 435 H 489 H 267 H (75-99) mg/dL 09/07/21 09/07/21 09/07/21 Range/Units 01:49 05:31 07:01 Sodium (137-145) mmol/L BUN (7-17) mg/dL Creatinine (0.52-1.04) mg/dL Glucose (74-99) mg/dL POC Glucose (mg/dL) 53 L 350 H 432 H (75-99) mg/dL 09/07/21 09/07/21 Range/Units 08:34 11:44 Sodium 130 L (137-145) mmol/L BUN 43 H (7-17) mg/dL Creatinine 1.13 H (0.52-1.04) mg/dL Glucose 334 H (74-99) mg/dL POC Glucose (mg/dL) 386 H (75-99) mg/dL Microbiology - Last 24 Hours (Table) 09/05/21 17:19 Blood Culture - Preliminary Blood No Growth after 24 hours 09/05/21 15:28 Blood Culture - Preliminary Blood No Growth after 24 hours Assessment and Plan Time with Patient: Less than 30
[2021-09-07 16:51] LABS: Glucose,Whole Blood 148 mg/dL (75-99)
[2021-09-07 19:57] LABS: Glucose,Whole Blood 232 mg/dL (75-99)
[2021-09-07] MEDS ORDERED: INSULIN DETEMIR (LEVEMIR) 100 UNIT/ML SYR SQ SCH (21:00)
[2021-09-07] MEDS: ATORVASTATIN 40 MG TAB PO SCH (21:10)
[2021-09-07] MEDS: LATANOPROST 0.005% OPHTH DROPS 2.5 ML BTL BOTH EYES SCH (22:20)
[2021-09-08 00:36] LABS: Glucose,Whole Blood 293 mg/dL (75-99)
[2021-09-08] MEDS: INSULIN ASPART (NovoLOG) 100 UNIT/ML VIAL SQ SCH ×5 (00:45→12:16)
[2021-09-08 04:33] VITALS: RESP 16; TEMP 97.8
[2021-09-08] MEDS: ACETAMINOPHEN TAB 325 MG TAB PO PRN (04:48)
[2021-09-08] MEDS: LEVOTHYROXINE 100 MCG TAB PO SCH (06:45)
[2021-09-08] MEDS: FOLIC ACID 1 MG TAB PO SCH (08:55)
[2021-09-08] MEDS: PANTOPRAZOLE 40 MG TABLET PO SCH (08:56)
[2021-09-08] MEDS: CLOPIDOGREL 75 MG TAB PO SCH (08:56)
[2021-09-08] MEDS: GABAPENTIN 300 MG CAP PO SCH (08:56)
[2021-09-08] MEDS: ASPIRIN 81 MG PO SCH (08:56)
[2021-09-08] MEDS: CYANOCOBALAMIN 500 MCG TAB PO SCH (08:57)
[2021-09-08] MEDS: INSULIN DETEMIR (LEVEMIR) 100 UNIT/ML SYR SQ SCH (08:58)
[2021-09-08] MEDS: HEPARIN SODIUM,PORCINE/PF 5,000 UNIT/0.5 ML SYRINGE SQ SCH (08:58)
[2021-09-08] MEDS: BRIMONIDINE TARTRATE 0.2% DROPS 5 ML BTL BOTH EYES SCH (09:05)
[2021-09-08 09:17] VITALS: BP 111/52; PULSE 82
[2021-09-08 11:46] LABS: Glucose,Whole Blood 337 mg/dL (75-99)
[2021-09-08 13:20] LABS: Potassium 5.2 mmol/L (3.5-5.1)
[2021-09-08 13:21] LABS: Calcium 8.9 mg/dL (8.4-10.2)
--- NOTE | 2021-09-09 14:22 | P.DS ---
Providers Date of admission: 08/31/21 14:06 Attending physician: Seb Vera MD Consults: 08/31/21 14:05 Consult Physician Routine Consulting Provider: Elvira Wellington Consult Reason/Comments: CVA Do you want consulting provider notified?: Yes 09/02/21 12:41 Consult Physician Urgent Consulting Provider: Lloyd Holbrook Consult Reason/Comments: CVA, weakness Do you want consulting provider notified?: Yes 09/05/21 12:40 Consult Physician Urgent Consulting Provider: Raad Clements Consult Reason/Comments: aortic valve mass Do you want consulting provider notified?: Yes Primary care physician: Priya Bell [facility] Course: Final Diagnosis Acute/Subacute right parieto-occipital stroke 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 as noted on NATTY History of coronary artery disease s/p previous stenting to RCA years ago History of stroke previously Acute kidney injury Gait dysfunction Diabetes mellitus type 2 uncontrolled with hyperglycemia Graves Disease Hypertension Hyperlipidemia Hyponatremia, possibly hypovolemic Chronic ongoing nicotine dependence Discharge Disposition Patient stable for discharge home. Recommended follow up with primary care, neurology, cardiothoracic, cardiology. She will be contacted by [facility] to schedule cardiac MRI. Hospital Course This is a 60-year-old female presents to the emergency department with left arm numbness and weakness. Patient had gone her B12 injection in her primary care office the day before admission and when she got home around noon she noticed that her left arm was weak and numb. She decided to come into the emergency department the next day. She has denied fevers, headache. The whole arm from shoulder down to her fingertips is described as numb. Patient additionally complained of headache when she noticed arm numbness as well as a few moments of slurred speech that resolved. Patient was outside of the window for alteplase. CT completed on admission shows acute/subacute CVA of the right parietal occipital region. There is also stable encephalomalacia. CT angiography of the head and neck show no evidence of large vessel occlusion. Patient was admitted to the hospital with stroke workup and consultation to neurology. Patient follows with Dr. Priya Bell in the primary care setting, chronic conditions include coronary artery disease with previous stenting of the RCA, hypertension, hyperlipidemia, diabetes mellitus, previous stroke. Patient does follow with Dr. Woo for cardiology the office. EKG on admission shows ventricular rate 70, sinus rhythm with no ST or T-wave changes. There is no QT prolongation. Stable from previous EKG. Chest x-ray on admission shows no acute cardiopulmonary disease. Echocardiogram shows an ejection fraction of 55-60% with mild tricuspid regurg, small generalized pericardial effusion. Brain MRI shows findings consistent with subacute infarcts, consider embolic phenomenon. There is cortical atrophy. Patient was evaluated by neurology as well as cardiology. Patient underwent NATTY on september 04, [address] Woo which showed normal LV systolic function, no evidence of intracardiac thrombus, no evidence of intracardiac shunt, abnormal aortic valve showing an echodense lesion attached to the aortic surface of the right coronary cusp. Per cardiology, patient will need to undergo cardiac MRI and if this confirms the exact nature of the mass lesion on the aortic valve she will need referral to cardiac surgeon, and was felt this is possibly reasoning for recurrent CVAs. Patient underwent evaluation by cardiothoracic team this admission, there were no recommendations at this time for surgical intervention and are agreeing with patient proceeding with cardiac MRI. It was felt by cardiothoracic team that if patient were to need cardiac surgery in the future she would need to undergo a cardiac catheterization prior to continue to proceed with medical management of other comorbidities. Patient's blood cell count was unremarkable this admission. Does experience some hyponatremia as well as hyperkalemia. Creatinine was also elevated at 1.38 and received gentle hydration, creatinine improved to 1.17 and will repeat this outpatient in 2 days. Hemoglobin A1c 9.2. It is recommended to optimize glycemic control for hemoglobin A1c less than 7. A she was taking injectable insulin at home which was increased as well as added long-acting insulin. Cholesterol panel was completed which shows a triglyceride level of 96.4, total cholesterol 118, HDL 34, LDL 63.9. Patient has remained afebrile this admission, heart rate is 82, blood pressure stable 111/52, she is maintaining saturations on room air 99%. 09/08/2021 Patient evaluated today resting in bed. She was monitored overnight for one more night for additional IV hydration and to monitor blood sugar related to dose changes. Today she denies chest pain, chest pressure, cough, or shortness of breath. Denies nausea, vomiting or diarrhea. Tolerating diet. She was evaluated by PT/OT who are recommending home with homecare on discharge. Patient is dominant in the left arm, which continues to have numbness in the hand. She is concerned about giving herself injectible insulin, however teaching was done with nursing staff at bedside and patient did well giving herself injection. Lisinopril held on discharge until follow up labs related to elevated potassium. Blood pressure is normotensive currently. She does have some peripheral edema however it is improving. She is able to ambulate to the bathroom and is urinating without difficulty. Lungs are clear, s1 s2 auscultated. Abdomen is soft and nontender. Focal neurological exam is stable. Patient alert x 3, oriented, educated about blood sugar control and follow up appointments. Counseled on smoking cessation. Vitals stable. Repeat labs in 2 days. Please see medication reconciliation for a list of current medications. Thank you for allowing us to participate in the care of this patient. The impression and plan of care has been dictated by Ave Hopper, Nurse Practitioner as directed. Dr. Shanti MD I have performed a history and physical examination and medical decision making of this patient, discussed the same with the dictator, and agree with the dictators assessment and plan as written, documented as a scribe. Based on total visit time, I have performed more than 50% of this visit. Patient Condition at Discharge: Fair Plan - Discharge Summary Discharge Rx Participant: No New Discharge Prescriptions: New Aspirin 81 mg PO DAILY 21 Days #21 tab Folic Acid 1 mg PO DAILY #30 tab Famotidine [Pepcid] 20 mg PO DAILY #30 tablet Cyanocobalamin [Vitamin B-12] 1,000 mcg PO DAILY #30 tab Insulin Aspart [NovoLOG Flexpen] 0 units SQ ACHS #3 each Insulin Glargine,Hum.rec.anlog [Lantus Solostar Pen] 10 unit SQ BID #3 each Clopidogrel [Plavix] 75 mg PO DAILY #30 tab Continue Gabapentin 600 mg PO TID Furosemide [Lasix] 40 mg PO DAILY Latanoprost Ophth [Xalatan 0.005%] 1 drop BOTH EYES HS Brimonidine Tartrate [Alphagan P 0.2% Ophth Soln] 1 drops BOTH EYES BID Atorvastatin [Lipitor] 80 mg PO DAILY Levothyroxine Sodium [Synthroid] 100 mcg PO DAILY calcitrioL [Calcitriol] 0.25 mcg PO Q7D Changed Insulin Aspart [NovoLOG Flexpen] 5 units SQ AC-TID #1 Discontinued Furosemide [Lasix] 20 mg PO HS lisinopriL [Zestril] 10 mg PO DAILY Discharge Medication List Furosemide [Lasix] 40 mg PO DAILY 07/27/14 [History] Gabapentin 600 mg PO TID 07/27/14 [History] Latanoprost Ophth [Xalatan 0.005%] 1 drop BOTH EYES HS 07/27/14 [History] Atorvastatin [Lipitor] 80 mg PO DAILY 08/19/20 [History] Brimonidine Tartrate [Alphagan P 0.2% Ophth Soln] 1 drops BOTH EYES BID 08/19/20 [History] Levothyroxine Sodium [Synthroid] 100 mcg PO DAILY 08/31/21 [History] calcitrioL [Calcitriol] 0.25 mcg PO Q7D 08/31/21 [History] Aspirin 81 mg PO DAILY 21 Days #21 tab 09/08/21 [Rx] Clopidogrel [Plavix] 75 mg PO DAILY #30 tab 09/08/21 [Rx] Cyanocobalamin [Vitamin B-12] 1,000 mcg PO DAILY #30 tab 09/08/21 [Rx] Famotidine [Pepcid] 20 mg PO DAILY #30 tablet 09/08/21 [Rx] Folic Acid 1 mg PO DAILY #30 tab 09/08/21 [Rx] Insulin Aspart [NovoLOG Flexpen] 0 units SQ ACHS #3 each 09/08/21 [Rx] Insulin Aspart [NovoLOG Flexpen] 5 units SQ AC-TID #1 09/08/21 [Rx] Insulin Glargine,Hum.rec.anlog [Lantus Solostar Pen] 10 unit SQ BID #3 each 09/08/21 [Rx] Follow up Appointment(s)/Referral(s): Priya Bell MD [Primary Care Provider] - 1-2 days (call thursday for appt ) Betina Hillman MD [Medical Doctor] - 1 Week (call thursday for appt) Yrn Sims MD [STAFF PHYSICIAN] - 1 Week (call thursday for appt) Bari Woo MD [STAFF PHYSICIAN] - 2 Weeks (call thursday for appt) Ambulatory/Diagnostic Orders: Basic Metabolic Panel [LAB.AMB] Time Frame: 2 Days, Location: None Selected Patient Instructions/Handouts: Ischemic Stroke (DC) Activity/Diet/Wound Care/Special Instructions: Outpatient Cardiac MRI - [facility] - they will call you with an appointment date/time - [phone] Patient to follow up with [facility] [place] for outpatient MRI pending appointment date and time confirmation. Follow up with neurology in 1-2 weeks. Follow up with cardiology, cardiothoracic surgeon. Follow up with primary care provider. Aspirin 81 mg PO daily and Plavix 75 mg PO daily to be taken together for 21 days. After 21 days may discontinue Aspirin 81 mg PO daily and continue on Plavix 75 mg PO daily. Check blood sugar before each meal and at bedtime. Keep a long to bring to follow up appointment with primary provider. Administer novolog flexpen based on scale provider at meal time and bedtime, a total of 4 times per day. Additionally administer 5 units of novolog flexpen with each meal. Lantus solostar pen to be given 10 units twice a day, in the morning, and at night. Recheck electrolytes in 2-3 days, continue to hold lisinopril until recheck and follow up with primary care provider. Discharge Disposition: HOME WITH HOME HEALTH SERVICES
== END 2021-09-08 13:30 | disposition home health service (06) | DRG 65 ==
LOC: EC 11:01 → 3SCARD 14:06
PROVIDERS: ADMIT Internal Medicine; ATTEND Internal Medicine
DX: I63.40 Cerebral infarction due to embolism of unspecified cerebral artery (principal); N17.9 Acute kidney failure, unspecified; E87.1 Hypo-osmolality and hyponatremia; N39.0 Urinary tract infection, site not specified; R26.9 Unspecified abnormalities of gait and mobility; E11.622 Type 2 diabetes mellitus with other skin ulcer; E05.00 Thyrotoxicosis with diffuse goiter without thyrotoxic crisis or storm; E11.65 Type 2 diabetes mellitus with hyperglycemia; E78.5 Hyperlipidemia, unspecified; G83.24 Monoplegia of upper limb affecting left nondominant side; R20.0 Anesthesia of skin; I25.10 Atherosclerotic heart disease of native coronary artery without angina pectoris; H54.8 Legal blindness, as defined in USA; E87.5 Hyperkalemia; F17.210 Nicotine dependence, cigarettes, uncomplicated; D75.89 Other specified diseases of blood and blood-forming organs; H40.9 Unspecified glaucoma; I10 Essential (primary) hypertension; L98.499 Non-pressure chronic ulcer of skin of other sites with unspecified severity; E11.40 Type 2 diabetes mellitus with diabetic neuropathy, unspecified; Z86.73 Personal history of transient ischemic attack (TIA), and cerebral infarction without residual deficits; I25.2 Old myocardial infarction; Z95.5 Presence of coronary angioplasty implant and graft; Z79.02 Long term (current) use of antithrombotics/antiplatelets; Z79.4 Long term (current) use of insulin; Z79.82 Long term (current) use of aspirin; Z79.890 Hormone replacement therapy; Z79.899 Other long term (current) drug therapy; Z83.3 Family history of diabetes mellitus; Z82.3 Family history of stroke; Z82.49 Family history of ischemic heart disease and other diseases of the circulatory system
CPT/HCPCS: 36415; 70450; 70496; 70498; 70553; 71045; 80048; 80053; 80061; 81001; 82009; 82607; 82746; 83036; 83735; 83921; 84484; 85025; 85610; 85730; 87040; 93005; 93306; 93312; 93320; 93325; 96374; 99285

== ENCOUNTER → 2021-11-15 | Outpatient (CLI) | payer OTHER ==
--- NOTE | 2021-11-15 13:36 | USB ---
Reason for Exam: Clinical finding. Last mammogram was performed 1 year(s) and 2 month(s) ago. Patient History: Menarche at age 13. First Full-Term at age 20. Postmenopausal. 10/03/2013, Benign Core Biopsy on the right side. Risk Values: Shayy 5 year model risk: 1.4%. NCI Lifetime model risk: 6.9%. Prior Study Comparison: 10/28/2017 Bilateral Screening Mammogram, [facility]. 12/16/2018 Bilateral Screening Mammogram, [facility]. 09/10/2020 Bilateral Screening Mammogram, [facility]. Tissue Density: There are scattered fibroglandular densities. Findings: Mammogram A palpable abnormality is marked. There is diffuse parenchymal tissue symmetrical pattern. Benign spherical calcifications are present. No suspicious spiculated or lobular masses or cluster of microcalcifications, architectural distortion or other secondary signs of malignancy are radiographically apparent. No mammographic abnormality at the level of the palpable abnormality.. Findings: The whole breast of the left breast and the axilla of the left breast were scanned. There is a large isoechoic circumscribed area within the 11:00 position 9 cm from the nipple corresponding to the palpable abnormality. This measures 3.9 x 1.6 x 3.3 cm. Consider lipoma within the differential. Ultrasound-guided core biopsy however is recommended for confirmation. Overall Assessment: Suspicious, BI-RAD 4 Assessment: MG diagnostic mammo w CAD SUHA - Bilateral: Benign, BI-RAD 2 - Left. US breast LT - Left: Suspicious, BI-RAD 4. Management: Ultrasound Core Biopsy of the left breast. A clinical breast exam by your physician is recommended on an annual basis and results should be correlated with mammographic findings. Results were given to the patient verbally at the time of exam. Electronically signed and approved by: Tesfaye Urias D.O. Radiologis
--- NOTE | 2021-11-15 15:13 | US ---
EXAMINATION TYPE: US kidneys/renal and bladder DATE OF EXAM: 11/15/2021 COMPARISON: NONE CLINICAL HISTORY: N39.0 Recurrent UTI, E10.65 Type 1 diabetes mellitus with hy. Abnormal labs. Diabe tic. EXAM MEASUREMENTS: Right Kidney: 9.1 x 4.8 x 4.7 cm Left Kidney: 8.7 x 4.6 x 5.1 cm Right Kidney: Medial anechoic lesion at hilum = 1.3 x 1.1 cm, this may be related to an extrarenal pe lvis. Left Kidney: No hydronephrosis or masses seen Bladder: distended, anechoic Bilateral Jets seen Incidental finding: echogenic foci seen throughout spleen can be compatible with calcified granuloma. IMPRESSION: 1. Extrarenal pelvis right kidney
== END | disposition home or self-care (01) ==
LOC: RADUSWWP 12:18
PROVIDERS: ATTEND Family Medicine
DX: N39.0 Urinary tract infection, site not specified (principal); E10.65 Type 1 diabetes mellitus with hyperglycemia; N63.20 Unspecified lump in the left breast, unspecified quadrant
CPT/HCPCS: 76770; 77066

== ENCOUNTER → 2021-11-29 | Outpatient (CLI) | payer OTHER ==
[2021-11-29 15:01] VITALS: BP 112/72; PULSE 85; RESP 18
--- NOTE | 2021-11-29 15:29 | P.GSHP ---
History of Present Illness H&P Date: 11/29/21 Chief Complaint: mass left breast Malinda is a 61 year old white female seen in consultation for Dr. Bell regarding a mass in her left breast. She had a bilateral mammogram done on 11-15-21 followed by an ultrasound of the left breast which revealed an isoechoic area at the 11 oclock position for which a biopsy was recommended. The patient feels a lump in her left breast for several years. She does not know if it has increased in size. It is not painful. She is not complaining of any nipple discharge or skin changes. She is not complaining of any trauma or infection in her breast. She has never had any breast surgery. Caffeine: 2 pots of coffee/day nicotine: 1 PPD since 15 chocolate: no diabetic BCP: < 1 year Family History: sister: ? type Hormonal History: menarche: 13 , breast fed: no, age at : 20 menopause: 48 hormones: none Surgical history: tubaligation appy tonsil cataract right eye Medical History: legally blind left eye CVA GA diabetes Social History: nicotine: 1 PPD alcohol: none drugs: none - Constitutional Constitutional: Denies chills, Denies fever - EENT Eyes: bilateral as per HPI Ears: deny: decreased hearing, tinnitus Ears, nose, mouth and throat: Reports headache, Denies sore throat - Breasts Breasts: bilateral: as per HPI - Cardiovascular Cardiovascular: Denies chest pain, Denies shortness of breath - Respiratory Respiratory: Reports as per HPI, Denies cough - Gastrointestinal Gastrointestinal: Reports constipation, Denies abdominal pain, Denies diarrhea, Denies nausea, Denies vomiting - Genitourinary (Female) Genitourinary: Denies dysuria, Denies hematuria - Menstruation Menstruation: Reports postmenopausal - Musculoskeletal Musculoskeletal: Denies myalgias - Integumentary Integumentary: Reports pruritus, Reports rash - Neurological Neurological: Denies numbness, Denies weakness - Psychiatric Psychiatric: Denies anxiety, Denies depression - Endocrine Endocrine: Reports fatigue - Hematologic/Lymphatic Comment: aspirin/plavix - Allergic/Immunologic Allergic/Immunologic: Reports as per HPI Past Medical History Past Medical History: Coronary Artery Disease (CAD), CVA/TIA, Diabetes Mellitus, Hyperlipidemia, Hypertension, Myocardial Infarction (GA), Renal Disease, Thyroid Disorder Additional Past Medical History / Comment(s): graves disease, glaucoma, 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 Last Myocardial Infarction Date:: 1994 History of Any Multi-Drug Resistant Organisms: None Reported Past Surgical History: Appendectomy, Section, Tonsillectomy Additional Past Surgical History / Comment(s): breast biopsy, right eye cataract Past Anesthesia/Blood Transfusion Reactions: No Reported Reaction Past Psychological History: No Psychological Hx Reported Smoking Status: Current every day smoker Past Alcohol Use History: None Reported Past Drug Use History: None Reported - Past Family History Father Family Medical History: CVA/TIA, Diabetes Mellitus Mother Family Medical History: Pneumonia Sister(s) Family Medical History: Congestive Heart Failure (CHF), Myocardial Infarction (GA) Medications and Allergies Home Medications Medication Instructions Recorded Confirmed Type Furosemide [Lasix] 40 mg PO DAILY 07/27/14 11/18/21 History Gabapentin 600 mg PO TID 07/27/14 11/18/21 History Latanoprost Ophth [Xalatan 0.005%] 1 drop BOTH EYES HS 07/27/14 11/18/21 History Brimonidine Tartrate [Alphagan P 1 drops BOTH EYES BID 08/19/20 11/18/21 History 0.2% Ophth Soln] Levothyroxine Sodium [Synthroid] 100 mcg PO DAILY 08/31/21 11/18/21 History calcitrioL [Calcitriol] 0.25 mcg PO Q7D 08/31/21 11/18/21 History Aspirin 81 mg PO DAILY 21 Days #21 tab 09/08/21 11/18/21 Rx Clopidogrel [Plavix] 75 mg PO DAILY #30 tab 09/08/21 11/18/21 Rx Cyanocobalamin [Vitamin B-12] 1,000 mcg PO DAILY #30 tab 09/08/21 11/18/21 Rx Insulin Aspart [NovoLOG Flexpen] 0 units SQ ACHS #3 each 09/08/21 11/18/21 Rx Insulin Aspart [NovoLOG Flexpen] 5 units SQ AC-TID #1 09/08/21 11/18/21 Rx Insulin Glargine,Hum.rec.anlog 10 unit SQ BID #3 each 09/08/21 11/18/21 Rx [Lantus Solostar Pen] lisinopriL [Zestril] 2.5 mg PO DAILY 11/18/21 11/18/21 History Allergies Allergy/AdvReac Type Severity Reaction Status Date / Time cephalexin monohydrate Allergy Vomiting Verified 11/18/21 14:20 [From Keflex] prochlorperazine edisylate AdvReac SOB Verified 11/18/21 14:20 [From Compazine] prochlorperazine maleate AdvReac SOB Verified 11/18/21 14:20 [From Compazine] Surgical - Exam Vital Signs Pulse Resp BP Pulse Ox 85 18 112/72 99 11/29/21 14:57 11/29/21 14:57 11/29/21 14:57 11/29/21 14:57 BMI: 32 - General moderate distress - ENT bulging eyes/ graves disease - Neck trachea midline - Respiratory normal respiratory effort, clear to auscultation - Cardiovascular Rhythm: regular Heart Sounds: normal: S1, S2 - Abdomen Abdomen: soft, non tender, no guarding, no rigid, no rebound - Integumentary normal turgor - Neurologic no disoriented, no combative - Musculoskeletal normal gait, normal posture - Psychiatric oriented to time, oriented to person, oriented to place, speech is normal, memory intact Breast Exam: BRA: large sports bra inspection: bilateral grade 2/3 ptosis Palpation: Right breast: Patient is examined sitting up no dominant masses or nodules of concern are noted Right axilla: No adenopathy of concern Left breast: No dominant masses or nodules of concern other than at 12 o'clock position approximately 3 x 2 cm circular area consistent with that which is seen radiographically this is a discrete mass Left axilla: No adenopathy of concern Results mammogram and ultrasound reviewed Assessment and Plan Assessment: Impression: legally blind left eye CVA GA diabetes mass left breast abnormal left breast ultrasound Plan: Ultrasound-guided core biopsy left breast Follow-up after ultrasound-guided core biopsy Patient is presently on aspirin and Plavix; will check with primary care about stopping these CC: Dr. Bell
== END ==
LOC: WWCWWP 14:41
PROVIDERS: ATTEND Surgery
DX: R92.8 Other abnormal and inconclusive findings on diagnostic imaging of breast (principal); N63.0 Unspecified lump in unspecified breast; H54.8 Legal blindness, as defined in USA; Z86.73 Personal history of transient ischemic attack (TIA), and cerebral infarction without residual deficits; I25.2 Old myocardial infarction; E11.9 Type 2 diabetes mellitus without complications; F17.210 Nicotine dependence, cigarettes, uncomplicated; I25.10 Atherosclerotic heart disease of native coronary artery without angina pectoris; E78.5 Hyperlipidemia, unspecified; I10 Essential (primary) hypertension; Z79.82 Long term (current) use of aspirin; Z79.4 Long term (current) use of insulin; Z79.899 Other long term (current) drug therapy; Z88.1 Allergy status to other antibiotic agents

== ENCOUNTER → 2021-12-03 | Day surgery (SDC) | payer OTHER ==
--- NOTE | 2021-12-11 10:24 | MM ---
Reason for Exam: Post Procedure Mammogram. Last screening mammogram was performed less than 1 month ago. Patient History: Menarche at age 13. First Full-Term at age 20. Postmenopausal. 10/03/2013, Benign Core Biopsy on the right side. Risk Values: Shayy 5 year model risk: 1.5%. NCI Lifetime model risk: 6.7%. Prior Study Comparison: 12/16/2018 Bilateral Screening Mammogram, [facility]. 09/10/2020 Bilateral Screening Mammogram, [facility]. 11/15/2021 Bilateral MG diagnostic mammo w CAD SUHA, [facility]. Tissue Density: Left: There are scattered fibroglandular densities. Pathology Description: Location: 11 o'clock, upper inner quadrant. Marker Left Behind. Needle Type: Mammotome Cores: 6 Gauge: 13 Pathology Results: Result: Benign, Lipoma of the breast. LEFT BREAST, 11:00, ULTRASOUND GUIDED NEEDLE CORE BIOPSY: Benign adipose tissue suggestive of lipoma. Breast elements are not present. Overall Assessment: Benign Assessment: MG diagnostic mammo LT wo CAD. - Left: Benign, BI-RAD 2. Management: Diagnostic Mammogram of the left breast in 6 months. Electronically signed and approved by: Adan Pearson M.D. Radiologist
== END ==
LOC: RADUSWWP 11:40
PROVIDERS: ATTEND Surgery
DX: R92.8 Other abnormal and inconclusive findings on diagnostic imaging of breast (principal); Z88.8 Allergy status to other drugs, medicaments and biological substances; Z88.1 Allergy status to other antibiotic agents; Z79.82 Long term (current) use of aspirin; Z79.01 Long term (current) use of anticoagulants; Z79.4 Long term (current) use of insulin; Z79.899 Other long term (current) drug therapy; Z86.73 Personal history of transient ischemic attack (TIA), and cerebral infarction without residual deficits; F17.200 Nicotine dependence, unspecified, uncomplicated; Z83.3 Family history of diabetes mellitus; Z82.3 Family history of stroke; Z82.49 Family history of ischemic heart disease and other diseases of the circulatory system; Z83.6 Family history of other diseases of the respiratory system
CPT/HCPCS: 88305; 77065; 19083; A4648

== ENCOUNTER → 2021-12-19 | Outpatient (CLI) | payer OTHER ==
[2021-12-19 12:28] VITALS: BP 116/57; TEMP 97.9
[2021-12-19 12:30] VITALS: PULSE 80; RESP 20
--- NOTE | 2021-12-19 12:38 | P.PN ---
Subjective Progress Note Date: 12/19/21 Principal diagnosis: mas left breast Malinda is a 61 year old white female seen in consultation for Dr. Bell regarding a mass in her left breast. She had a bilateral mammogram done on 11-15-21 followed by an ultrasound of the left breast which revealed an isoechoic area at the 11 oclock position for which a biopsy was recommended. The patient feels a lump in her left breast for several years. She does not know if it has increased in size. It is not painful. She is not complaining of any nipple discharge or skin changes. She is not complaining of any trauma or infection in her breast. She has never had any breast surgery. 12-19-21 The patient had a core biopsy of the left breast on 12-03-21. Pathology was sugestive of a lipoma. The patient has a persistent mass in her breast which is increased in size from prior and is painful. Caffeine: 2 pots of coffee/day nicotine: 1 PPD since 15 chocolate: no diabetic BCP: < 1 year Family History: sister: ? type Hormonal History: menarche: 13 , breast fed: no, age at : 20 menopause: 48 hormones: none Surgical history: tubaligation appy tonsil cataract right eye Medical History: legally blind left eye CVA [place] diabetes Social History: nicotine: 1 PPD alcohol: none drugs: none - Constitutional Constitutional: Denies chills, Denies fever - EENT Eyes: bilateral as per HPI Ears: deny: decreased hearing, tinnitus Ears, nose, mouth and throat: Reports headache, Denies sore throat - Breasts Breasts: bilateral: as per HPI - Cardiovascular Cardiovascular: Denies chest pain, Denies shortness of breath - Respiratory Respiratory: Reports as per HPI, Denies cough - Gastrointestinal Gastrointestinal: Reports constipation, Denies abdominal pain, Denies diarrhea, Denies nausea, Denies vomiting - Genitourinary (Female) Genitourinary: Denies dysuria, Denies hematuria - Menstruation Menstruation: Reports postmenopausal - Musculoskeletal Musculoskeletal: Denies myalgias - Integumentary Integumentary: Reports pruritus, Reports rash - Neurological Neurological: Denies numbness, Denies weakness - Psychiatric Psychiatric: Denies anxiety, Denies depression - Endocrine Endocrine: Reports fatigue - Hematologic/Lymphatic Comment: aspirin/plavix Objective - Exam BMI: 32.5 - Constitutional General appearance: Present: cooperative - EENT Eyes: Present: EOMI ENT: Present: hearing grossly normal - Neck Neck: Present: normal ROM - Respiratory Respiratory: bilateral: CTA - Cardiovascular Heart sounds: normal: S1, S2 - Integumentary Integumentary Comment(s): biopsy site clean and dry - Musculoskeletal Musculoskeletal: Present: gait normal - Psychiatric Psychiatric: Present: A&O x's 3, appropriate affect, intact judgment & insight - Additional findings Additional findings: left breast nodule approximately 3 x 2 cm in the upper inner quadrant. This a ppears to be the area which was biopsied however it is very firm it is increased in size and it is painful for the patient Breast examination: Inspection: Bilateral grade 2/3 ptosis Palpation: Right breast: Patient was examined sitting up no dominant masses or not her nodules were concern Right axilla: No adenopathy of concern Left breast no dominant masses or nodules other than that at the 11:30 to 12 o'clock position which revealed approximately 3 x 2 cm firm area consistent with radiographic change Left axilla: No adenopathy of concern Assessment and Plan Assessment: Impression: Legally blind left eye CVA [place] Diabetes Mass left breast Abnormal left breast ultrasound/biopsy probable lipoma Plan: Recommendation is for removal of the lesion in the left breast as it is painful and increased in size Patient is aware we'll make that decision Patient presently on aspirin and Plavix Plavix. She will check with primary care doctor about stopping these CC: Dr. Bell
== END ==
LOC: WWCWWP 11:41
PROVIDERS: ATTEND Surgery
DX: N63.22 Unspecified lump in the left breast, upper inner quadrant (principal); H54.8 Legal blindness, as defined in USA; R92.8 Other abnormal and inconclusive findings on diagnostic imaging of breast; I63.9 Cerebral infarction, unspecified; I21.9 Acute myocardial infarction, unspecified; F17.210 Nicotine dependence, cigarettes, uncomplicated; Z88.1 Allergy status to other antibiotic agents; Z88.8 Allergy status to other drugs, medicaments and biological substances

== ENCOUNTER → 2022-02-14 | Outpatient (CLI) | payer OTHER ==
--- NOTE | 2022-02-14 13:34 | P.PN ---
Subjective Progress Note Date: 02/14/22 Principal diagnosis: symptomatic lipoma left breast mas left breast Malinda is a 61 year old white female seen in consultation for Dr. Bell regarding a mass in her left breast. She had a bilateral mammogram done on 11-15-21 followed by an ultrasound of the left breast which revealed an isoechoic area at the 11 oclock position for which a biopsy was recommended. The patient feels a lump in her left breast for several years. She does not know if it has increased in size. It is not painful. She is not complaining of any nipple discharge or skin changes. She is not complaining of any trauma or infection in her breast. She has never had any breast surgery. 12-19-21 The patient had a core biopsy of the left breast on 12-03-21. Pathology was sugestive of a lipoma. The patient has a persistent mass in her breast which is increased in size from prior and is painful. 02-14-22 Caffeine: 2 pots of coffee/day nicotine: 1 PPD since 15 chocolate: no diabetic BCP: < 1 year Family History: sister: ? type Hormonal History: menarche: 13 , breast fed: no, age at : 20 menopause: 48 hormones: none Surgical history: tubaligation appy tonsil cataract right eye Medical History: legally blind left eye CVA [place] diabetes Social History: nicotine: 1 PPD alcohol: none drugs: none - Constitutional Constitutional: Denies chills, Denies fever - EENT Eyes: bilateral as per HPI Ears: deny: decreased hearing, tinnitus Ears, nose, mouth and throat: Reports headache, Denies sore throat - Breasts Breasts: bilateral: as per HPI - Cardiovascular Cardiovascular: Denies chest pain, Denies shortness of breath - Respiratory Respiratory: Reports as per HPI, Denies cough - Gastrointestinal Gastrointestinal: Reports constipation, Denies abdominal pain, Denies diarrhea, Denies nausea, Denies vomiting - Genitourinary (Female) Genitourinary: Denies dysuria, Denies hematuria - Menstruation Menstruation: Reports postmenopausal - Musculoskeletal Musculoskeletal: Denies myalgias - Integumentary Integumentary: Reports pruritus, Reports rash - Neurological Neurological: Denies numbness, Denies weakness - Psychiatric Psychiatric: Denies anxiety, Denies depression - Endocrine Endocrine: Reports fatigue - Hematologic/Lymphatic Comment: aspirin/plavix Objective - Constitutional General appearance: Present: cooperative - EENT Eyes: Present: EOMI ENT: Present: hearing grossly normal - Neck Neck: Present: normal ROM - Respiratory Respiratory: bilateral: CTA - Cardiovascular Rhythm: regular Heart sounds: normal: S1, S2 - Integumentary Integumentary: Present: normal turgor - Musculoskeletal Musculoskeletal: Present: gait normal - Psychiatric Psychiatric: Present: A&O x's 3 - Additional findings Additional findings: left breast nodule approximately 3 x 2 cm in the upper inner quadrant. This appears to be the area which was biopsied however it is very firm it is increased in size and it is painful for the patient Breast examination: Inspection: Bilateral grade 2/3 ptosis Palpation: Right breast: Patient was examined sitting up no dominant masses or not her nodules were concern Right axilla: No adenopathy of concern Left breast no dominant masses or nodules other than that at the 11:30 to 12 o'clock position which revealed approximately 3 x 2 cm firm area consistent with radiographic change Left axilla: No adenopathy of concern Assessment and Plan Assessment: Assessment and Plan Assessment: Impression: Legally blind left eye CVA [place] Diabetes Mass left breast/ biopsy lipoma symptomatic Abnormal left breast ultrasound/biopsy probable lipoma Plan: Recommendation is for removal of the lesion in the left breast as it is painful and increased in size Patient presently on aspirin and Plavix Plavix. She will check with primary care doctor about stopping these CC: Dr. Bell
[2022-02-14 14:33] VITALS: BP 123/73; PULSE 76; RESP 17; TEMP 98.1
== END ==
LOC: WWCWWP 13:05
PROVIDERS: ATTEND Surgery
DX: R92.8 Other abnormal and inconclusive findings on diagnostic imaging of breast (principal); N63.21 Unspecified lump in the left breast, upper outer quadrant; I25.2 Old myocardial infarction; Z86.73 Personal history of transient ischemic attack (TIA), and cerebral infarction without residual deficits; E11.9 Type 2 diabetes mellitus without complications; H54.8 Legal blindness, as defined in USA; F17.210 Nicotine dependence, cigarettes, uncomplicated; Z88.1 Allergy status to other antibiotic agents

== ENCOUNTER 2022-02-25 09:00 | Day surgery (SDC) | payer OTHER ==
[2022-02-21 12:58] VITALS: BMI 32.7
[~2022-02-25 09:00] MED LIST: ALPRAZolam 0.25 MG TAB PO PRN; DEXAMETHASONE SOD PHOSPHATE 4 MG/ML 1 ML VIAL IV ONE; HEPARIN SODIUM,PORCINE/PF 5,000 UNIT/0.5 ML SYRINGE SQ PRN; HYDROmorphone 0.5 MG/0.5 ML SYRINGE IVP PRN; LACTATED RINGERS 1,000 ML IV SCH; ONDANSETRON 4 MG/2 ML VIAL IVP ONE; Pre Op ABX Message 1 EACH MISC MISCELLANE ONE
[2022-02-25 09:17] LABS: Glucose,Whole Blood 334 mg/dL (70-110)
[2022-02-25 09:37] VITALS: RESP 16; TEMP 97.2
[2022-02-25] MEDS ORDERED: ONDANSETRON 4 MG/2 ML VIAL IVP ONE (09:40)
[2022-02-25] MEDS ORDERED: INSULIN ASPART (NovoLOG) 100 UNIT/ML VIAL SQ ONE (09:52)
[2022-02-25 10:25] LABS: Glucose,Whole Blood 351 mg/dL (70-110)
[2022-02-25 11:16] LABS: Glucose,Whole Blood 293 mg/dL (70-110)
[2022-02-25] MEDS ORDERED: INSULIN ASPART (NovoLOG) 100 UNIT/ML VIAL SQ SCH (12:30)
[2022-02-25] MEDS ORDERED: SUCCINYLCHOLINE CHLORIDE 200 MG/10 ML VIAL IV ONE (12:32)
[2022-02-25] MEDS ORDERED: ePHEDrine 50 MG/ML 1 ML VIAL ONE (12:32)
[2022-02-25] MEDS ORDERED: MIDAZOLAM 2 MG/2 ML VIAL ONE (12:32)
[2022-02-25] MEDS ORDERED: fentaNYL (PF) 50 MCG/ML 2 ML AMP ONE (12:32)
[2022-02-25] MEDS ORDERED: LIDOCAINE 2% INJ 20 MG/ML (2 ML VIAL) ONE (12:32)
[2022-02-25] MEDS ORDERED: PROPOFOL 10 MG/ML 20 ML VIAL IV ONE (12:32)
[2022-02-25] MEDS ORDERED: BUPIVACAINE (PF) 0.25% 30 ML VIAL SQ ONE (13:15)
--- NOTE | 2022-02-25 13:20 | P.OP ---
Date of Procedure: 02/25/22 Preoperative Diagnosis: Lesion left breast Postoperative Diagnosis: Same Procedure(s) Performed: Excision lesion left breast Anesthesia: MYLES Surgeon: Roxie Eduardo Estimated Blood Loss (ml): 1 IV fluids (ml): 800 Pathology: other (breast tissue/lipoma) Condition: stable Disposition: same day Indications for Procedure: Growing symptomatic soft tissue mass left breast most likely lipoma Operative Findings: Probable lipoma left breast approximately 4 cm x 3 cm Description of Procedure: Patient was brought to the operating room and following induction of anesthesia the left breast was prepped and draped in sterile fashion. Incision was made over the palpable abnormality. This was extruded. This is approximately 4 x 3 cm in size. Hemostasis was attained using electrocautery device as well as suture ligation of the base of the lesion. After assured that hemostasis was attained titanium clips were placed. Deep Vicryl sutures were placed. The skin was closed using 4-0 Monocryl. Surgical glue was applied. The patient tolerated the procedure in stable condition. 10 mL of 1% lidocaine was injected. All instrument and sponge counts were correct at the end of the case.
--- NOTE | 2022-02-25 13:22 | P.DS ---
Providers Attending physician: Roxie Eduardo Primary care physician: Priya Bell Plan - Discharge Summary Discharge Rx Participant: No New Discharge Prescriptions: No Action Gabapentin 600 mg PO HS Furosemide [Lasix] 40 mg PO DAILY Latanoprost Ophth [Xalatan 0.005%] 1 drop BOTH EYES HS Levothyroxine Sodium [Synthroid] 100 mcg PO DAILY Aspirin 81 mg PO DAILY 21 Days #21 tab Insulin Aspart [NovoLOG Flexpen] 0 units SQ ACHS #3 each Cholecalciferol [Vitamin D3 (25 Mcg = 1000 Iu)] 50 mcg PO DAILY Insulin Degludec [Tresiba] 26 - 28 units SQ HS calcitrioL [Calcitriol] 0.25 mcg PO Q7D Clopidogrel [Plavix] 75 mg PO DAILY #30 tab lisinopriL [Zestril] 2.5 mg PO DAILY Rosuvastatin [Crestor] 40 mg PO DAILY Discharge Medication List Furosemide [Lasix] 40 mg PO DAILY 07/27/14 [History] Gabapentin 600 mg PO HS 07/27/14 [History] Latanoprost Ophth [Xalatan 0.005%] 1 drop BOTH EYES HS 07/27/14 [History] Levothyroxine Sodium [Synthroid] 100 mcg PO DAILY 08/31/21 [History] calcitrioL [Calcitriol] 0.25 mcg PO Q7D 08/31/21 [History] Aspirin 81 mg PO DAILY 21 Days #21 tab 09/08/21 [Rx] Clopidogrel [Plavix] 75 mg PO DAILY #30 tab 09/08/21 [Rx] Insulin Aspart [NovoLOG Flexpen] 0 units SQ ACHS #3 each 09/08/21 [Rx] lisinopriL [Zestril] 2.5 mg PO DAILY 11/18/21 [History] Cholecalciferol [Vitamin D3 (25 Mcg = 1000 Iu)] 50 mcg PO DAILY 11/29/21 [History] Insulin Degludec [Tresiba] 26 - 28 units SQ HS 11/29/21 [History] Rosuvastatin [Crestor] 40 mg PO DAILY 11/29/21 [History] Follow up Appointment(s)/Referral(s): Roxie Eduardo MD [STAFF PHYSICIAN] - 03/06/22 3:00 pm Activity/Diet/Wound Care/Special Instructions: do not drive may shower after 48 hours Discharge Disposition: HOME SELF-CARE
[2022-02-25 13:34] LABS: Glucose,Whole Blood 201 mg/dL (70-110)
[2022-02-25 14:22] VITALS: PULSE 77
[2022-02-25 14:35] VITALS: BP 137/79
== END 2022-02-25 14:59 | disposition home or self-care (01) ==
LOC: OR 09:00
PROVIDERS: ATTEND Surgery
DX: D24.2 Benign neoplasm of left breast (principal); I25.10 Atherosclerotic heart disease of native coronary artery without angina pectoris; I10 Essential (primary) hypertension; E78.5 Hyperlipidemia, unspecified; Z95.5 Presence of coronary angioplasty implant and graft; I25.2 Old myocardial infarction; E05.00 Thyrotoxicosis with diffuse goiter without thyrotoxic crisis or storm; Z79.890 Hormone replacement therapy; Z79.899 Other long term (current) drug therapy; Z79.4 Long term (current) use of insulin; Z79.84 Long term (current) use of oral hypoglycemic drugs; Z86.73 Personal history of transient ischemic attack (TIA), and cerebral infarction without residual deficits; E11.9 Type 2 diabetes mellitus without complications
CPT/HCPCS: 19120; 88305; J2250; J0330; J2405; J3010; J2704; J1644; J2001

== ENCOUNTER → 2022-03-06 | Outpatient (CLI) | payer OTHER ==
[2022-03-06 14:50] VITALS: BP 127/76; PULSE 75; RESP 18; TEMP 97.7
--- NOTE | 2022-03-06 15:10 | P.PN ---
Progress Note - Text Progress Note Date: 03/06/22 Malinda is a 61 year old white female status post resection of a symptomatic lesion from her left breast on 02-25-22. Her pathology revealed a lipoma. Physical exam: Lungs: Clear Heart: Regular rate and rhythm Incision: Clean and dry Impression: Lipoma left breast patient recommended to have repeat left breast mammogram in 6 months but has declined. She states she will come again in 1 year therefore bilateral mammogram in 1 year with physician exam at that time CC: Dr. Hough
== END | disposition home or self-care (01) ==
LOC: WWCWWP 14:39
PROVIDERS: ATTEND Surgery
DX: Z53.9 Procedure and treatment not carried out, unspecified reason (principal)

== ENCOUNTER → 2022-07-04 | Outpatient (CLI) | payer OTHER ==
--- NOTE | 2022-07-04 14:34 | CT ---
EXAMINATION: CT ABDOMEN AND PELVIS WITHOUT CONTRAST DATE OF EXAMINATION: 07/04/2022. COMPARISON: None available. INDICATION: Judd chronic constipation. PROCEDURE: Axial CT of the abdomen and pelvis was performed without contrast and sagittal and coron al reformatted images were performed. CT dose lowering techniques were used, to include: automated ex posure control, adjustment for patient size, and/or use of iterative reconstruction. FINDINGS: LOWER CHEST : The visualized lung bases are clear. There are no pleural or pericardial effusions. T he visualized patchy coronary calcifications are seen. ABDOMEN: Liver and Biliary system: Normal. Adrenal glands: Normal. Kidneys and ureters: Normal. Spleen: There are multiple calcified granulomas within the spleen. Pancreas: Normal. Gallbladder: Normal. Lymph nodes, Peritoneum and mesentery: There is no mesenteric or retroperitoneal lymphadenopathy. Gastrointestinal tract: There are no dilated loops of bowel or free intraperitoneal air. This is not clearly seen with no secondary changes of appendicitis otherwise identified. There is a mild to m oderate amount of stool throughout the colon which is more prominent in the right and transverse colo n. Aorta/IVC: Moderate vascular calcification throughout the abdominal aorta without evidence of aneur ysmal dilation IVC normal. Abdominal wall: Normal. PELVIS: Fluid: There is no free fluid in the pelvis. Lymph Nodes: There is no pelvic or inguinal lymphadenopathy.. Urinary bladder: Normal. BONES: There are no osseous destructive lesions.. ADDITIONAL SIGNIFICANT FINDINGS: None. IMPRESSION: 1. No acute process within the abdomen or pelvis. 2. No renal stones or hydronephrosis. 3. There only appears to be a [id number] amount of stool seen throughout the colon and more pro minent on the right and transverse colon. 4. Coronary artery calcifications. Chronic changes in the abdominal aorta.
== END | disposition home or self-care (01) ==
LOC: RADCTMAIN 11:49
PROVIDERS: ATTEND Family Medicine
DX: I25.10 Atherosclerotic heart disease of native coronary artery without angina pectoris (principal); K59.09 Other constipation
CPT/HCPCS: 74176

== ENCOUNTER → 2022-12-04 | Outpatient (CLI) | payer OTHER ==
--- NOTE | 2022-12-04 10:46 | MM ---
Reason for Exam: Follow-up at short interval from prior study. Last screening mammogram was performed 12 month(s) ago. Patient History: Menarche at age 13. First Full-Term at age 20. Postmenopausal. 12/03/2021, Benign US biopsy breast VAD LT on the left side. 10/03/2013, Benign Core Biopsy on the right side. Risk Values: Shayy 5 year model risk: 1.9%. NCI Lifetime model risk: 8.1%. Prior Study Comparison: 12/07/2009 Screening Mammogram, [facility]. 11/19/2011 Screening Mammogram, [facility]. 11/24/2012 Screening Mammogram, [facility]. 09/12/2013 Bilateral Screening Mammogram, [facility]. 09/16/2013 Right Diagnostic Mammogram, [facility]. 09/16/2013 Left Diagnostic Ultrasound, [facility]. 09/01/2014 Bilateral Screening Mammogram, [facility]. 09/03/2015 Bilateral Screening Mammogram, [facility]. 09/14/2015 Left Diagnostic Mammogram, [facility]. 09/03/2016 Bilateral Screening Mammogram, [facility]. 10/28/2017 Bilateral Screening Mammogram, [facility]. 12/16/2018 Bilateral Screening Mammogram, [facility]. 09/10/2020 Bilateral Screening Mammogram, [facility]. 11/15/2021 Bilateral MG diagnostic mammo w CAD SUHA, [facility]. 11/15/2021 Left US breast LT, [facility]. 12/03/2021 Left MG diagnostic mammo LT wo CAD., [facility]. Tissue Density: There are scattered fibroglandular densities. Findings: Analyzed By CAD. No new suspicious mass within either breast. Benign-appearing calcifications within both breasts. Biopsy clip redemonstrated within the right breast. Interval postsurgical changes of the upper inner left breast at middle depth with 2 surgical clips identified at site of prior biopsy. Overall Assessment: Benign, BI-RAD 2 Management: Screening Mammogram of both breasts in 1 year. A clinical breast exam by your physician is recommended on an annual basis and results should be correlated with mammographic findings. This exam should not preclude additional follow-up of suspicious palpable abnormalities. Results were given to the patient verbally at the time of exam. Note on Shayy scores and lifetime risk: 1. A Shayy score greater than 3% is considered moderate risk. If this is the case, consider specialist referral to assess eligibility for a risk reducing agent. If overall lifetime risk for the development of breast cancer is 20% or higher, the patient may qualify for future screening with alternating mammogram and breast MRI. Electronically signed and approved by: Santhosh Topete D.O.
== END | disposition home or self-care (01) ==
LOC: RADMAMWWP 10:15
PROVIDERS: ATTEND Family Medicine
DX: R92.8 Other abnormal and inconclusive findings on diagnostic imaging of breast (principal); Z78.0 Asymptomatic menopausal state; Z87.898 Personal history of other specified conditions
CPT/HCPCS: 77066; G0279; 77062

== ENCOUNTER → 2023-01-07 | Outpatient (CLI) | payer OTHER ==
--- NOTE | 2023-01-07 16:20 | P.SLEEP ---
History of Present Illness DATE: 01/07/2023 CONSULTATION/NEW PATIENT EVALUATION HISTORY OF PRESENT ILLNESS/SLEEP-WAKE EVALUATION: 62-year-old lady had been ev aluated in the sleep center for possible obstructive sleep apnea hypopnea syndrome. Many years ago patient had sleep study and had been told that she has obstructive sleep apnea hypopnea syndrome, but she did not use CPAP therapy that time. SLEEP SCHEDULE: Usually sleep schedule from 1011 PM to 6 AM, get out of bed at 9 AM. FALLING ASLEEP: Patient has difficulties to initiate sleep, has TV set and bedroom. DURING SLEEP: Patient sees by himself, subsequently no information about her breathing and snoring during the sleep. Patient wakes up from sleep multiple times with nocturia No history of hypnogogical hallucinations, sleep paralysis, or cataplexy. DURING THE DAY/WAKE STATE: In the morning patient wake up tired. Mccracken sleepiness scale is 3. Patient takes nap at 2 PM. PAST MEDICAL HISTORY: Hypertension history of stroke 2 with residual difficulties to manipulate with the left hand, diabetes mellitus. PAST SURGICAL HISTORY: Tonsillectomy, appendectomy, tubal ligation, , cataract surgery. MEDICATIONS: Levothyroxine 100 g once a day, famotidine 20 mg once a day, furosemide 20 mg once a day, lisinopril 2.5 mg once a day, gabapentin 600 mg once a day, NovoLog. SOCIAL HISTORY: Positive for smoking for about 50 pack years, continue to smoke, alcohol consumption none. FAMILY HISTORY: Hypertension, stroke, lupus, sleep apnea. REVIEW OF SYSTEMS: Multiple awakenings from sleep, sleepiness during the day. No fevers. No double vision. No recent chest pain. No shortness of breath. No abdominal pain. No bleeding episodes. No blood in urine. No seizure episodes. PHYSICAL EXAMINATION: GENERAL: A pleasant patient without any distress. VITAL SIGNS: BP 120/75, HR 71, RR 20, weight 171.0 pounds, height 5 foot 05 inches, body mass index 32.6. HEENT: PERRLA, EOMI. Evaluation of oropharynx showed tongue protrudes midline, low position of soft palate Mallampati 4. NECK: Supple. No JVD. Thyroid is not palpable. 15 inches in circumference. LUNGS: Clear to percussion and to auscultation. Good air exchange. No wheezing or rhonchi. HEART: S1, S2 regular. No murmurs, gallops or rubs. ABDOMEN: Soft and nontender. Bowel sounds are present. No organomegaly tom reciated. EXTREMITIES: Possible clubbing. LEATHER CURRIER: Awake, alert, and oriented x3. Cranial nerves 2 to 7 intact. Tremor of the head. Slight weakness of left hand. ASSESSMENT: 1. Multiple awakenings from sleep, extremely low position of soft palate, episodes of sleepiness during the day, history of obstructive sleep apnea in the past. Obstructive sleep apnea hypopnea syndrome. 2. History of stroke x2 with some residual deficit of function of left hand. 3. Hypertension. 4. Legally blind. 5 obesity BMI 32.6. 6 . Tremor of the head. 7. Diabetes mellitus. 8. Hypothyroidism. 9 . Status post tonsillectomy. 10. Status post cataract surgery. PLAN: 1. Polysomnography for evaluation of patient's breathing during sleep. 2. CPAP/BiPAP titration if sleep study confirms obstructive sleep apnea- hypopnea syndrome. 3. Preferable position during sleep on the side. 4. No driving if patient feels any sleepiness. Patient is aware of civil and criminal liability for unsafe driving. 5. Sleep hygiene with regular sleep time for at least 7.5-8 hours. 6. Watching and losing weight. 7. Smoking cessation program. Thank you very much for referring this patient for consultation. Sincerely, Jonatan Uriostegui MD, PhD, FAASM. Diplomat of [place] [employer], Sleep Medicine Board by [place] [employer] [place] [employer] Health Lead of [facility] [place] Past Medical History Past Medical History: Coronary Artery Disease (CAD), CVA/TIA, Diabetes Mellitus, Eye Disorder, Hyperlipidemia, Hypertension, Myocardial Infarction ([place]), Renal Disease, Thyroid Disorder Additional Past Medical History / Comment(s): graves disease, glaucoma, LEGALLY 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 LT ARM/HAND NUMB Last Myocardial Infarction Date:: 1994 History of Any Multi-Drug Resistant Organisms: None Reported Past Surgical History: Appendectomy, Section, Tonsillectomy Additional Past Surgical History / Comment(s): breast biopsy, right eye cataract Past Anesthesia/Blood Transfusion Reactions: No Reported Reaction Past Psychological History: No Psychological Hx Reported Smoking Status: Former smoker Past Alcohol Use History: None Reported Additional Past Alcohol Use History / Comment(s): QUIT SMOKING 1 WEEK-WAS SMOKING 1 PPD SINCE AGE 15 Past Drug Use History: None Reported - Past Family History Father Family Medical History: CVA/TIA, Diabetes Mellitus Mother Family Medical History: Pneumonia Sister(s) Family Medical History: Congestive Heart Failure (CHF), Myocardial Infarction ([place]) Medications and Allergies Home Medications Medication Instructions Recorded Confirmed Type Furosemide [Lasix] 40 mg PO DAILY 07/27/14 02/21/22 History Gabapentin 600 mg PO HS 07/27/14 02/21/22 History Latanoprost Ophth [Xalatan 0.005%] 1 drop BOTH EYES HS 07/27/14 02/25/22 History Levothyroxine Sodium [Synthroid] 100 mcg PO DAILY 08/31/21 02/21/22 History calcitrioL [Calcitriol] 0.25 mcg PO Q7D 08/31/21 02/21/22 History Aspirin 81 mg PO DAILY 21 Days #21 tab 09/08/21 02/21/22 Rx Clopidogrel [Plavix] 75 mg PO DAILY #30 tab 09/08/21 02/21/22 Rx Insulin Aspart [NovoLOG Flexpen] 0 units SQ ACHS #3 each 09/08/21 02/21/22 Rx lisinopriL [Zestril] 2.5 mg PO DAILY 11/18/21 02/25/22 History Cholecalciferol [Vitamin D3 (25 50 mcg PO DAILY 11/29/21 02/21/22 History Mcg = 1000 Iu)] Insulin Degludec [Tresiba] 26 - 28 units SQ HS 11/29/21 02/21/22 History Rosuvastatin [Crestor] 40 mg PO DAILY 11/29/21 02/21/22 History HYDROcodone/APAP 5-325MG [[place] 1 tab PO Q6HR PRN 3 Days #12 tab 02/25/22 Rx 5-325] Allergies Allergy/AdvReac Type Severity Reaction Status Date / Time cephalexin monohydrate Allergy Vomiting Verified 03/06/22 14:46 [From Keflex] prochlorperazine edisylate AdvReac SOB Verified 03/06/22 14:46 [From Compazine] prochlorperazine maleate AdvReac SOB Verified 03/06/22 14:46 [From Compazine] Sleep Note - Sleep Note Sleep Note: Temperature: Pulse Rate: Respiratory Rate: Blood Pressure: SpO2: Height: Weight: BMI: Neck Circumference:
== END ==
LOC: 3 N SLEEP 14:30
PROVIDERS: ATTEND Internal Medicine
DX: G47.33 Obstructive sleep apnea (adult) (pediatric) (principal); I10 Essential (primary) hypertension; E11.9 Type 2 diabetes mellitus without complications; E03.9 Hypothyroidism, unspecified; E66.9 Obesity, unspecified; F17.200 Nicotine dependence, unspecified, uncomplicated; R25.0 Abnormal head movements; Z98.890 Other specified postprocedural states; Z68.32 Body mass index [BMI] 32.0-32.9, adult; Z86.73 Personal history of transient ischemic attack (TIA), and cerebral infarction without residual deficits; Z79.890 Hormone replacement therapy; Z79.899 Other long term (current) drug therapy; Z79.84 Long term (current) use of oral hypoglycemic drugs; Z88.1 Allergy status to other antibiotic agents; Z88.8 Allergy status to other drugs, medicaments and biological substances; Z79.4 Long term (current) use of insulin
CPT/HCPCS: 99211

== ENCOUNTER → 2023-03-18 | Outpatient (CLI) | payer OTHER ==
--- NOTE | 2023-03-18 11:02 | XR ---
EXAM TYPE: LUMBAR SPINE X RAY SERIES COMPARISON: NONE HISTORY: Pain TECHNIQUE: 4 views are submitted. FINDINGS: Alignment is anatomic. The pedicles are intact. The transverse processes are intact. There is diff use osteopenia and degenerative change L5-S1 and grade 1 anterolisthesis. There is mild degenerative change at L4-5. Vascular calcifications noted. SI joints symmetric. IMPRESSION: 1. Degenerative disc disease with the spondylolisthesis L5 relative to S1.
--- NOTE | 2023-03-18 11:57 | XR ---
EXAMINATION TYPE: XR Hip Bilateral Complete DATE OF EXAM: 03/18/2023 COMPARISON: NONE HISTORY: Pain TECHNIQUE: AP view of the pelvis 2 views submitted FINDINGS: There is no evidence of erosive change or acute fracture. Moderate hypertrophic arthropathy of the le ft hip. Mild arthropathy of the right hip. Diffuse osteopenia. Vascular calcifications are noted. IMPRESSION: 1. Moderate hypertrophic arthropathy of the left hip and mild arthropathy of the right hip.
== END | disposition home or self-care (01) ==
LOC: RADXRMAIN 10:23
PROVIDERS: ATTEND Family Medicine
DX: M43.17 Spondylolisthesis, lumbosacral region (principal); M51.37 Other intervertebral disc degeneration, lumbosacral region; M79.604 Pain in right leg; M25.551 Pain in right hip; M25.552 Pain in left hip; R22.41 Localized swelling, mass and lump, right lower limb
CPT/HCPCS: 72100; 73521

== ENCOUNTER 2023-06-17 10:00 | Emergency (ER) | payer OTHER ==
[2023-06-17 10:18] VITALS: BP 142/64; PULSE 83; RESP 20; TEMP 98.1
--- NOTE | 2023-06-17 10:21 | ED ---
Skin/Abscess/FB HPI - General Chief complaint: Skin/Abscess/Foreign Body Stated complaint: Abscess Time Seen by Provider: 06/17/23 10:18 Source: patient, RN notes reviewed Mode of arrival: ambulatory Limitations: no limitations - History of Present Illness Initial comments: Patient is 62-year-old female presented ER with chief complaint of an abscess. Patient states she's been having left-sided groin pain for the past 2 weeks. Patient states about 2 weeks ago it popped and has been draining yellow discharge. Patient is a diabetic and believes this was an infected ingrown hair. Patient has not been seen for this before and denies any previous antibiotic use. Patient denies any fevers, chills, night sweats. - Related Data Home Medications Medication Instructions Recorded Confirmed Furosemide [Lasix] 40 mg PO DAILY 07/27/14 02/21/22 Gabapentin 600 mg PO HS 07/27/14 02/21/22 Latanoprost Ophth [Xalatan 0.005%] 1 drop BOTH EYES HS 07/27/14 02/25/22 Levothyroxine Sodium [Synthroid] 100 mcg PO DAILY 08/31/21 02/21/22 calcitrioL [Calcitriol] 0.25 mcg PO Q7D 08/31/21 02/21/22 lisinopriL [Zestril] 2.5 mg PO DAILY 11/18/21 02/25/22 Cholecalciferol [Vitamin D3 (25 50 mcg PO DAILY 11/29/21 02/21/22 Mcg = 1000 Iu)] Insulin Degludec [Tresiba] 26 - 28 units SQ HS 11/29/21 02/21/22 Rosuvastatin [Crestor] 40 mg PO DAILY 11/29/21 02/21/22 Previous Rx's Medication Instructions Recorded Aspirin 81 mg PO DAILY 21 Days #21 tab 09/08/21 Clopidogrel [Plavix] 75 mg PO DAILY #30 tab 09/08/21 Insulin Aspart [NovoLOG Flexpen] 0 units SQ ACHS #3 each 09/08/21 HYDROcodone/APAP 5-325MG [[place] 1 tab PO Q6HR PRN 3 Days #12 tab 02/25/22 5-325] clindamycin HCL 300 mg PO QID 10 Days #40 cap 06/17/23 Allergies Allergy/AdvReac Type Severity Reaction Status Date / Time cephalexin monohydrate Allergy Vomiting Verified 06/17/23 10:04 [From Keflex] prochlorperazine edisylate AdvReac SOB Verified 06/17/23 10:04 [From Compazine] prochlorperazine maleate AdvReac SOB Verified 06/17/23 10:04 [From Compazine] Review of Systems ROS Statement: Those systems with pertinent positive or pertinent negative responses have been documented in the HPI. ROS Other: All systems not noted in ROS Statement are negative. 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 LT ARM/HAND NUMB Last Myocardial Infarction Date:: 1994 History of Any Multi-Drug Resistant Organisms: None Reported Past Surgical History: Appendectomy, Section, Tonsillectomy Additional Past Surgical History / Comment(s): breast biopsy, right eye cataract Past Anesthesia/Blood Transfusion Reactions: No Reported Reaction Past Psychological History: No Psychological Hx Reported Smoking Status: Former smoker Past Alcohol Use History: None Reported Past Drug Use History: None Reported - Past Family History Father Family Medical History: CVA/TIA, Diabetes Mellitus Mother Family Medical History: Pneumonia Sister(s) Family Medical History: Congestive Heart Failure (CHF), Myocardial Infarction ([place]) General Exam Limitations: no limitations General appearance: alert, in no apparent distress Respiratory exam: Present: normal lung sounds bilaterally. Absent: respiratory distress, wheezes, rales, rhonchi, stridor Cardiovascular Exam: Present: regular rate, normal rhythm, normal heart sounds. Absent: systolic murmur, diastolic murmur, rubs, gallop, clicks Neurological exam: Present: alert, oriented X3, CN II-XII intact Psychiatric exam: Present: normal affect, normal mood Skin exam: Present: warm, dry, intact, other (fluctuant 2 cm area in superior inguinal fold under patient abdomen. mild clear drainage with surrounding eryt yaritza) Course Vital Signs 06/17/23 10:02 Temperature 98.1 F Pulse Rate 83 Respiratory 20 Rate Blood Pressure 142/64 O2 Sat by Pulse 98 Oximetry Procedures - Incision & Drainage Consent Obtained: written consent Indication: abscess Site: other (superior inguinal) Size (cm): 2 Anesthetic Used: lidocaine 1% Amount (mLs): 3 I&D Cleaning Method: Alcohol Wipe Sterile Field Used?: Yes Scalpel Used: #11 Ultrasound used: No Needle Aspiration Performed?: No Irrigation Performed?: No I&D Drainage Obtained: Pus, Blood Insertion of drain: No Culture Obtained?: No Patient Tolerated Procedure: well, no complications Medical Decision Making - Medical Decision Making Was pt. sent in by a medical professional or institution ([facility]HELLEY Ramirez, [facility] [facility], urgent care, hospital, or [facility]...) When possible be specific @ -No Did you speak to anyone other than the patient for history (EMS, parent, family, police, friend...)? What history was obtained from this source @ -No Did you review nursing and triage notes (agree or disagree)? Why? @ -I reviewed and agree with nursing and triage notes Were old charts reviewed (outside hosp., previous admission, EMS record, old EKG, old radiological studies, urgent care reports/EKG's, [facility] records)? Report findings @ -No old charts were reviewed Differential Diagnosis (chest pain, altered mental status, abdominal pain women, abdominal pain men, vaginal bleeding, weakness, fever, dyspnea, syncope, headache, dizziness, GI bleed, back pain, seizure, CVA, palpatations, mental health, musculoskeletal)? @ -Cellulitis, abscess, cyst this list is not all inclusive EKG interpreted by me (3pts min.). @ -None X-rays interpreted by me (1pt min.). @ -None done CT interpreted by me (1pt min.). @ -None done U/S interpreted by me (1pt. min.). @ -None done What testing was considered but not performed or refused? (CT, X-rays, U/S, labs)? Why? @ -None What meds were considered but not given or refused? Why? @ -None Did you discuss the management of the patient with other professionals (professionals i.e. SHELLEY Ramirez, [employer], lab, RT, psych nurse, social work lecturer, corporation lawyer, teacher, chief digital officer, manager of case)? Give summary @ -No Was smoking cessation discussed for >3mins.? @ -No Was critical care preformed (if so, how long)? @ -No Were there social determinants of health that impacted care today? How? (Homelessness, low income, unemployed, alcoholism, drug addiction, transportation, low edu. Level, literacy, decrease access to med. care, senior living, rehab)? @ -No Was there de-escalation of care discussed even if they declined (Discuss DNR or withdrawal of care, Hospice)? DNR status @ -No What co-morbidities impacted this encounter? (DM, HTN, Smoking, COPD, CAD, Cancer, CVA, ARF, Chemo, Hep., AIDS, mental health diagnosis, sleep apnea, morbid obesity)? @ -Diabetes mellitus Was patient admitted / discharged? Hospital course, mention meds given and route, prescriptions, significant lab abnormalities, going to OR and other pertinent info. @ -Discharge. Patient is 62-year-old female presented ER with chief complaint of a groin abscess. Vitals stable. Exam was significant for a 2cm fluctuant area to the left superior inguinal region. Abscess was located under patient's abdominal pannus. Area was cleaned using alcohol wipe and numbed using lidocaine. A drainage tract was created using an 11 blade scalpel. Purulent material and blood drained from abscess. Patient tolerated procedure well. Patient will be prescribed clindamycin. I educated patient on importance to complete full course of antibiotics. I advised her to keep area clean and dry. Instructed her to follow-up with PCP. Return parameters were discussed. Patient will be discharged in stable condition with follow-up to PCP. Patient expressed understanding and agreement with care plan. Undiagnosed new problem with uncertain prognosis? @ -No Drug Therapy requiring intensive monitoring for toxicity (Heparin, Nitro, Insulin, Cardizem)? @ -No Were any procedures done? @ -Yes Diagnosis/symptom? @ -Abscess Acute, or Chronic, or Acute on Chronic? @ -Acute Uncomplicated (without systemic symptoms) or Complicated (systemic symptoms)? @ -Uncomplicated Side effects of treatment? @ -No Exacerbation, Progression, or Severe Exacerbation? @ -No Poses a threat to life or bodily function? How? (Chest pain, [place], [place], pneumonia, PE, COPD, DKA, ARF, appy, cholecystitis, CVA, Diverticulitis, Homicidal, Suicidal, threat to staff... and all critical care pts) @ -No Disposition Clinical Impression: Abscess Disposition: HOME SELF-CARE Condition: Stable Instructions (If sedation given, give patient instructions): Abscess Incision and Drainage (ED) Additional Instructions: Please complete full course of antibiotics. Keep area clean and dry. Return to ER for any new or worsening symptoms. Follow-up with PCP in the next 1-2 days. Prescriptions: clindamycin HCL 300 mg PO QID 10 Days #40 cap Is patient prescribed a controlled substance at d/c from ED?: No Referrals: [facility] Melissa [Primary Care Provider] - 1-2 days Time of Disposition: 10:42
[2023-06-17] MEDS ORDERED: LIDOCAINE 1% INJ 10MG/ML (20 ML MDV) SQ ONE (10:24)
== END 2023-06-17 10:53 | disposition home or self-care (01) ==
LOC: EC 10:00
DX: L02.214 Cutaneous abscess of groin (principal); I25.10 Atherosclerotic heart disease of native coronary artery without angina pectoris; E11.9 Type 2 diabetes mellitus without complications; E78.5 Hyperlipidemia, unspecified; I10 Essential (primary) hypertension; I25.2 Old myocardial infarction; E07.9 Disorder of thyroid, unspecified; Z87.891 Personal history of nicotine dependence; Z79.890 Hormone replacement therapy; Z79.899 Other long term (current) drug therapy; Z79.4 Long term (current) use of insulin; Z88.1 Allergy status to other antibiotic agents; Z88.8 Allergy status to other drugs, medicaments and biological substances
CPT/HCPCS: 10060; 99282; J2001

== ENCOUNTER → 2023-08-17 | Outpatient (CLI) | payer OTHER ==
--- NOTE | 2023-08-17 14:24 | US ---
EXAMINATION TYPE: US venous doppler duplex LE DATE OF EXAM: 08/17/2023 10:09 AM COMPARISON: LOWER EXTREMITY VENOUS INSUFFICIENCY CLINICAL INDICATION: Female, 62 years old with history of I87.2 Venous insufficiency; venous insuffic iency SIDE PERFORMED: bilateral 1) Color flow is present and patency is documented in the following vessels. No DVT or SVT is noted . Common Femoral Vein Deep Femoral Vein Femoral Vein Popliteal Vein Proximal Calf Veins Greater Saph Vein Upper Small Saph Vein 2) There is venous reflux noted at the following venous levels: no 3) Incompetent perforators are noted at these levels: none IMPRESSION: No evidence for DVT within the bilateral lower extremities imaged from the groin to the upper calves. No venous reflux identified on either side.
== END | disposition home or self-care (01) ==
LOC: RADUSWWP 09:36
PROVIDERS: ATTEND Dermatology
DX: Z01.818 Encounter for other preprocedural examination (principal); I87.2 Venous insufficiency (chronic) (peripheral)
CPT/HCPCS: 93970

== ENCOUNTER → 2024-09-07 | Outpatient (CLI) | payer OTHER ==
[2024-09-07 13:15] LABS: African American GFR (CKD) 44 (>60 ml/min/1.73 sqM); Blood Urea Nitrogen 26 mg/dL (7-17); Non-African American GFR(CKD) 38 (>60 ml/min/1.73 sqM)
--- NOTE | 2024-09-07 15:56 | CT ---
CT orbits without contrast HISTORY: Exophthalmus. COMPARISON: head CT dated 08/31/2021: Technique: Multiple axial images are obtained through the orbits. Coronal reconstructions were genera mani and reviewed. FINDINGS: Exophthalmos cannot be determined precisely with this technique given the lack of true axial imaging and coronal reconstruction. There are stable calcifications of the left retina. There is stable irregular hyperdensity of the lef t lens is not typical appearance for a left lens implant.. The right globe is intact. There is no int ra or extraconal mass. The extraocular muscles are normal in size and symmetric. IMPRESSION: 1.Normal extraocular muscles. 2. No intra or extraconal masses. 3. Left retinal calcifications and calcifications in the region of the left lens as described above. No change compared to previous [facility], , 09/07/2024 3:53 PM
== END | disposition home or self-care (01) ==
LOC: RADCTMAIN 12:20
PROVIDERS: ATTEND Ophthalmology
DX: H05.243 Constant exophthalmos, bilateral (principal); N28.89 Other specified disorders of kidney and ureter
CPT/HCPCS: 82565; 84520; 70482; 36415; Q9967